=== PATIENT | female | born 1990 ===

== ENCOUNTER 2022-05-25 15:19 | Emergency (ER) | payer OTHER, SELFPAY ==
[2022-05-25 15:30] VITALS: BP 140/94; BP 141/90; PULSE 71; PULSE 73; RESP 16; TEMP 36.6; O2SAT 93; O2SAT 97; BMI 29.2
--- NOTE | 2022-05-25 17:37 | ED_ITS ---
HPI - General Adult General Chief complaint: General Medical Stated complaint: Lower leg injury Time Seen by Provider: 05/25/22 15:45 History of Present Illness HPI narrative: Patient complains of wound on left calf that has been present for over a year with some surrounding redness for over year, she thinks the redness is improving she is had no fever, no severe pain, she is a recovering addict who says she has never injected the area but has scratched it picked added She also complains she bites her fingernails and there is redness around the nail bed on multiple fingers but denies any swelling or discharge or significant pain in the fingers She also complains of a shaving scratch to her right leal area She denies fever chills dizziness weakness headache neck pain, no joint pains no joint swelling Related Data Previous Rx's Medication Instructions Recorded albuterol sulfate 90 mcg/actuation 2 puff inhalation Q4-6H PRN 05/25/22 aerosol inhaler shortness of breath or wheezing #8.5 grams cephalexin 500 mg tablet 500 mg PO QID 7 days #28 tabs 05/25/22 doxycycline hyclate 100 mg capsule 100 mg PO BID 7 days #14 caps 05/25/22 Allergies Allergy/AdvReac Type Severity Reaction Status Date / Time buprenorphine [From Suboxone] Allergy Anaphylaxis Verified 05/25/22 15:46 naloxone [From Suboxone] Allergy Anaphylaxis Verified 05/25/22 15:46 [facility] Past Medical History Source: nursing notes reviewed Social History Social History Advance Directives: No Advance Directives Information Provided: No Physical Exam ED Vital Signs: Vital Signs - 24 hr 05/25/22 15:30 Temperature 97.9 F Pulse Rate 71 Respiratory Rate 16 Blood Pressure 141/90 H Pulse Oximetry 93 Oxygen Delivery Method Room Air BMI result Body Mass Index 29.2 General appearance comfortable no distress Head is normocephalic atraumatic Neck is supple Respiratory no distress Left posterior leg exam there is a small dime-sized wound with surrounding redness and induration no fluctuance no discharge from the wound in the left calf area, there is no lymphangitis, neurovascular intact distal with normal skin color distal The right lower anterior pre tibial area has 3 cm very superficial abrasion with no surrounding erythema no bleeding no discharge, full range of motion in all joints neurovascular intact distal The bilateral hand exam there is redness around the nail beds on multiple fingers but no fluctuance no swelling no discharge, there is full range of motion in all fingers and no evidence of any tendon deficits, sensation is intact in all fingertips Course Course Course Narrative: Patient is treated for skin infection in nailbed area and wound in left calf area with Keflex and doxycycline As left calf wound has lasted over a year she is referred to wound clinic Well-appearing patient ambulating easily is discharged Discharge Plan Discharge Clinical Impression: Cellulitis, Leg wound, left Patient Disposition: Home, Self-Care Additional Instructions: We are treating the wound on her left leg and the redness in her fingertips with antibiotics Keflex and doxycycline For the wound in the back of her leg that has been there a year we recommend you follow with wound clinic The abrasion on the front of her right leg is not serious and does not need any treatment but we did do a tetanus shot today Return any time for spreading redness worse pain and swelling fever red stripe up leg any worse condition or any concerns Prescriptions: New doxycycline hyclate 100 mg capsule 100 mg PO BID 7 Days Qty: 14 0RF cephalexin 500 mg tablet 500 mg PO QID 7 Days Qty: 28 0RF albuterol sulfate 90 mcg/actuation HFA aerosol inhaler 2 puff inhalation Q4-6H PRN (Reason: shortness of breath or wheezing) Qty: 8.5 0RF
[2022-05-25 17:54] VITALS: BP 122/71; PULSE 72; RESP 18; TEMP 36.4; O2SAT 93
[2022-05-25] MEDS: Doxycycline Monohydrate 100 MG CAPSULE PO (18:04)
[2022-05-25] MEDS: cephALEXin 500 MG CAPSULE PO (18:04)
== END 2022-05-25 18:39 | disposition home or self-care (01) ==
PROVIDERS: Emergency Provider Emergency Medicine
DX: L03.012 Cellulitis of left finger (principal); L03.011 Cellulitis of right finger; L03.116 Cellulitis of left lower limb; S80.811A Abrasion, right lower leg, initial encounter; S81.802A Unspecified open wound, left lower leg, initial encounter; X58.XXXA Exposure to other specified factors, initial encounter; Y93.9 Activity, unspecified; Y92.9 Unspecified place or not applicable; Y99.9 Unspecified external cause status
CPT/HCPCS: 90471; 99283; 99284

== ENCOUNTER 2022-05-31 10:25 | Emergency (ER) | payer OTHER, SELFPAY ==
[2022-05-31 10:45] VITALS: BP 120/70; BP 141/89; PULSE 102; PULSE 94; RESP 18; O2SAT 96; O2SAT 97; BMI 29.2
[2022-05-31 11:08] VITALS: TEMP 36.9
--- NOTE | 2022-05-31 11:22 | PC.NURSE ---
pt denies contraband on her person.
--- NOTE | 2022-05-31 11:29 | ED_ITS ---
HPI - Medical Clearance General Chief complaint: Medical Clearance Stated complaint: Medical eval per EMS Time Seen by Provider: 05/31/22 10:39 Source: patient Mode of arrival: ambulatory Limitations: no limitations History of Present Illness HPI Narrative: 32-year-old female presents for medical clearance. She lives in a sober house. She last used cocaine approximately a day and half ago. She offers no acute complaints. She does have chronic cellulitic changes to her right fingers. She is currently not on antibiotics supposed to be on Keflex and doxycycline. She is having issues getting the antibiotics secondary to insurance. Patient also complains of bilateral chronic lower extremity paresthesias. This is not changed since her surgery. Patient denies any fevers, chills, cough, mucus production, chest pain, shortness of breath. There is no clear relieving or exacerbating features. She denies suicidal homicidal ideation. Patient's symptoms are mild at this time. Related Information Previous Rx's Medication Instructions Recorded albuterol sulfate 90 mcg/actuation 2 puff inhalation Q4-6H PRN 05/25/22 aerosol inhaler shortness of breath or wheezing #8.5 grams cephalexin 500 mg tablet 500 mg PO QID 7 days #28 tabs 05/25/22 doxycycline hyclate 100 mg capsule 100 mg PO BID 7 days #14 caps 05/25/22 cephalexin 500 mg capsule 500 mg PO QID 7 days #28 caps 05/31/22 doxycycline hyclate 100 mg tablet 100 mg PO BID 7 days #14 tabs 05/31/22 Allergies Allergy/AdvReac Type Severity Reaction Status Date / Time buprenorphine [From Suboxone] Allergy Anaphylaxis Verified 05/25/22 15:46 naloxone [From Suboxone] Allergy Anaphylaxis Verified 05/25/22 15:46 [facility] Social History Social History Alcohol intake: former Smoked in Last 30 Days: Yes Use of substances other than those prescribed or required for medical reasons: Yes Substance Use Type: Crack/Cocaine Substance Use Frequency Other:: 2 days ago Last Used Substance: Days (ago) Advance Directives: No Advance Directives Information Provided: Yes Patient : No Physical Exam Vital Signs: Vital Signs: Last Vital Signs Temp 98.5 F 05/31/22 11:08 Pulse 102 H 05/31/22 10:45 Resp 18 05/31/22 10:45 BP 141/89 H 05/31/22 10:45 Pulse Ox 96 05/31/22 10:45 O2 Del Method Room Air 05/31/22 10:45 BMI result Body Mass Index 29.2 GEN: Well developed, no acute distress, alert, oriented HEENT: Normocephalic, atraumatic, normal external ears, nose appears normal, no oropharyngeal edema or exudates Eyes: Normal to appearance Neck: Supple, no lymphadenopathy Respiratory: Talks in complete sentences, no respiratory distress, clear to auscultation bilaterally Cardiovascular: Regular rate and rhythm, no murmurs rubs or gallops Abdomen: Soft, nontender, nondistended, no guarding, no rebound Back: No CVA tenderness Extremities: No clubbing cyanosis or edema, right hand distal phalangial cellulitic changes. Neurologic: No focal neurologic deficits, cranial nerves 2-12 intact, strength is 5/5 bilaterally, gait normal Skin: No rash Course Course Course Narrative: 32-year-old female with no significant medical complaints at this time presents for medical clearance to return back to [facility]. Will order urine drug screen. She does have cellulitis of the right distal phalanges. Will restart patient on antibiotics and order prescription for her. Patient otherwise offers no acute psychiatric complaints. She denies suicidal homicidal ideation. She appears pose no threat to self or others. Patient has decision-making capacity would like to be discharged following completion of her workup here. Medications Administered Discontinued Medications Generic Name Dose Route Start Last Admin Trade Name Freq PRN Reason Stop Dose Admin Cephalexin HCl 500 mg 05/31/22 11:27 05/31/22 11:43 Cephalexin 500 Mg Capsule PO 05/31/22 11:28 500 mg ONCE ONE Administration Doxycycline Monohydrate 100 mg 05/31/22 11:27 05/31/22 11:43 Doxycycline Monohydrate 100 Mg Capsule PO 05/31/22 11:28 100 mg ONCE ONE Administration Medical Decision Making Medical Decision Making MDM Narrative: 32-year-old female with no significant medical complaints at this time presents for medical clearance to return back to [facility]. Will order urine drug screen. She does have cellulitis of the right distal phalanges. Will restart patient on antibiotics and order prescription for her. Patient otherwise offers no acute psychiatric complaints. She denies suicidal homicidal ideation. She appears pose no threat to self or others. Patient has decision-making capacity would like to be discharged following completio Differential Diagnosis Differential Diagnoses: The differential diagnosis associated with the presentation includes (Substance abuse, intoxication, cellulitis, chronic skin changes) Lab Data MDM Lab Attestation statement: I reviewed the patient's lab results. Labs: Lab Results 05/31/22 Range/Units 11:45 Urine Opiates Screen Not Detected (Not Detect) Urine Fentanyl Screen POSITIVE H (Not Detect) Ur Barbiturates Screen Not Detected (Not Detect) Ur Phencyclidine Scrn Not Detected (Not Detect) Ur Amphetamines Screen Not Detected (Not Detect) U Benzodiazepines Scrn Not Detected (Not Detect) Urine Cocaine Screen POSITIVE H (Not Detect) U Marijuana (THC) Screen Not Detected (Not Detect) Tests considered The following testing was considered but not selected: Laboratory analysis Prescription Management I considered prescription management with: Antibiotic Chronic Conditions Patient?s care impacted by: Other (Substance abuse) Discharge Plan Discharge Clinical Impression: Cellulitis, Substance abuse Patient Disposition: Home, Self-Care Instructions: Cellulitis (ED), Polysubstance Abuse (ED) Additional Instructions: Patient is medically cleared to return back to her living environment Prescriptions: New cephalexin 500 mg capsule 500 mg PO QID 7 Days Qty: 28 0RF doxycycline hyclate 100 mg tablet 100 mg PO BID 7 Days Qty: 14 0RF Continued cephalexin 500 mg tablet 500 mg PO QID 7 Days Qty: 28 0RF albuterol sulfate 90 mcg/actuation HFA aerosol inhaler 2 puff inhalation Q4-6H PRN (Reason: shortness of breath or wheezing) Qty: 8.5 0RF doxycycline hyclate 100 mg capsule 100 mg PO BID 7 Days Qty: 14 0RF Discontinued doxycycline hyclate 100 mg capsule 100 mg PO BID 7 Days Qty: 14 0RF cephalexin 500 mg tablet 500 mg PO QID 7 Days Qty: 28 0RF albuterol sulfate 90 mcg/actuation HFA aerosol inhaler 2 puff inhalation Q4-6H PRN (Reason: shortness of breath or wheezing) Qty: 8.5 0RF Referrals: Physician,None [Primary Care Provider] -
[2022-05-31] MEDS: cephALEXin 500 MG CAPSULE PO (11:43)
[2022-05-31] MEDS: Doxycycline Monohydrate 100 MG CAPSULE PO (11:43)
[2022-05-31 12:02] LABS: Amphetamine Screen Urine Not Detected (Not Detect); Barbiturates, Urine Not Detected (Not Detect); Benzodiazepines Screen Urine Not Detected (Not Detect); Cannabinoid Screen Urine Not Detected (Not Detect); Cocaine Screen Urine POSITIVE (Not Detect); Fentanyl, urine POSITIVE (Not Detect); Opiate Screen Urine Not Detected (Not Detect); Phencyclidine Screen Urine Not Detected (Not Detect)
--- NOTE | 2022-05-31 12:27 | PC.NURSE ---
call placed to [facility] to determine if pt can d/c back to their facility - awaiting responce.
--- NOTE | 2022-05-31 12:44 | PC.NURSE ---
[facility] refused to accpt pt back d/t +fentanyl. reported pt would have to go to detox first. informed pt of this. she reports she needs to smoke a cigarette . offered her to stay to be placed to detox by [facility] staff. she refused at thsi time. list of detoxes given to pt. she d/c to front of hospital to smoke .
== END 2022-05-31 12:46 | disposition home or self-care (01) ==
PROVIDERS: Emergency Provider Emergency Medicine
DX: L03.011 Cellulitis of right finger (principal); F14.10 Cocaine abuse, uncomplicated; Z79.899 Other long term (current) drug therapy
CPT/HCPCS: 80307; 99284

== ENCOUNTER 2022-07-27 14:09 | Emergency (ER) | payer OTHER, SELFPAY ==
[2022-07-27 14:23] VITALS: BP 133/83; BP 140/90; PULSE 104; PULSE 92; RESP 18; O2SAT 96; BMI 29.0
[2022-07-27 14:28] VITALS: BP 133/83; PULSE 104; RESP 18; O2SAT 98
--- NOTE | 2022-07-27 14:35 | PC.NURSE ---
Alert and oriented. States picked a scab on her left leg and blood started spurting: everywhere. Stated she thinks she lost a good amount of blood. Pressure dressing applied by emt`s. Dry and intact at this time. States pain is 6/10 in left leg at scab site. With patient permission personal belongings searched. Patient drowsy, nodding off, and emotional. Sates she just had lower back surgery and has a psuedo anurysm in her left arm.
--- NOTE | 2022-07-27 14:45 | ED_ITS ---
HPI - General Adult General Chief complaint: Wound/Laceration Stated complaint: LLE LAC,CONTROLLED W/DIRECT PRESSURE Time Seen by Provider: 07/27/22 14:18 Source: patient and EMS Mode of arrival: EMS Limitations: no limitations History of Present Illness HPI narrative: Patient is a 32-year female with history of cellulitis presenting with bleeding from left lower leg after picking a scab prior to arrival. Patient states she was unable to control the bleeding on her own so she called 911 and EMS applied a dressing. She denies any leg pain, numbness or tingling. Denies any other complaints. Denies any recent fevers or chills. Denies any chest pain or shortness of breath. complaint: left lower leg bleeding Onset (ago): minute(s) Location: lower extremity Radiation: non-radiation Associated symptoms: denies other symptoms Treatments prior to arrival: other (dressing) Related Data Previous Rx's Medication Instructions Recorded albuterol sulfate 90 mcg/actuation 2 puff inhalation Q4-6H PRN 05/25/22 aerosol inhaler shortness of breath or wheezing #8.5 grams cephalexin 500 mg tablet 500 mg PO QID 7 days #28 tabs 05/25/22 doxycycline hyclate 100 mg capsule 100 mg PO BID 7 days #14 caps 05/25/22 cephalexin 500 mg capsule 500 mg PO QID 7 days #28 caps 05/31/22 doxycycline hyclate 100 mg tablet 100 mg PO BID 7 days #14 tabs 05/31/22 cephalexin 500 mg capsule 500 mg PO QID #28 caps 07/27/22 doxycycline hyclate 100 mg capsule 100 mg PO BID #14 caps 07/27/22 Allergies Allergy/AdvReac Type Severity Reaction Status Date / Time buprenorphine [From Suboxone] Allergy Anaphylaxis Verified 05/25/22 15:46 naloxone [From Suboxone] Allergy Anaphylaxis Verified 05/25/22 15:46 Review of Systems Review of Systems: As per HPI. Yes all other systems are reviewed and are negative Constitutional: Constitutional: Reports as per HPI [facility] Social History Social History Alcohol intake: former Smoked in Last 30 Days: Yes Substance Use Type: Crack/Cocaine and Heroin Substance Use Frequency: Chronic Longstanding Last Used Substance: Hours (ago) Any prior treatment program specific to substance use: Yes Advance Directives: No Physical Exam ED Vital Signs: Vital Signs - 24 hr 07/27/22 14:23 07/27/22 14:28 Pulse Rate 104 H 104 H Respiratory Rate 18 18 Blood Pressure 133/83 133/83 Pulse Oximetry 96 98 Oxygen Delivery Method Room Air Room Air BMI result Body Mass Index 29.0 Vital signs have been reviewed and appear to be correct. Blood pressure normal. Heart rate slightly elevated. Respiratory rate normal. Temperature normal. Oxygen saturation normal. Const General: cooperative and no acute distress Orientation/consciousness: oriented to person, oriented to place, oriented to time and patient oriented x3 Limitations: no limitations HENMT Head: Yes normocephalic and Yes atraumatic Ears: external ears normal General nose exam: Normal external nose present Face and sinus: Yes face symmetric Mouth: oropharynx normal and moist mucous membranes Throat: Yes uvula midline Eyes Pupils: Equal, round and reactive pupils present Neck Neck: Yes normal visual inspection and Yes supple Resp Effort & Inspection: normal respiratory effort and able to speak in complete sentences Auscultation: clear to auscultation bilaterally Cardio Rate: regular rate Rhythm: regular rhythm Heart sounds: S1 normal heart sound present and S2 normal heart sound present GI Palpation (GI): Soft to palpation and nontender Auscultation: normoactive bowel sounds General: Yes no CVA tenderness Back/Spine/Pelvis Back: no CVA tenderness Skin General skin exam: elasticity normal and turgor normal Neuro General: oriented to person, oriented to place, oriented to time, patient oriented x3, moves all extremities, no focal motor deficits and CN's II-XI intact bilaterally Cranial nerves: Yes Equal, round and reactive pupils present Cognition (Neuro): normal cognition Extrem General: Yes full ROM, Yes no pedal edema and Yes no calf tenderness Right lower extremity: lower leg Details: erythema Location: of the proximal lower leg Location: medially, warmth Location: of the proximal lower leg and other (2mm wound to medial aspect of proximal L lower leg, no active bleeding); no tenderness and foot Details: normal capillary refill and vascular exam Details: dorsalis pedis pulse present and posterior tibial pulse present Psych Mental Status: mental status grossly normal Affect: normal affect Thought process: Normal thought process present Medical Decision Making Medical Decision Making MDM Narrative: Patient is a 32-year female with history of cellulitis presenting with bleeding from left lower leg after picking a scab prior to arrival. On exam, patient is awake, A+Ox3, mildly tachycardic, VS otherwise WNL, ~2mm wound to medial aspect of proximal left lower leg with no active bleeding. Erythema and calor to medial aspect of left lower leg consistent with cellulitis. Dressing applied to wound, wrapped with kerlix and Kris bandage. No lymphangitis spread, no fluid pockets or fluctuance. Low concern for osteomyelitis or DVT (low risk [place]). No immune compromise, bullae, pain out of proportion or rapid progression concerning for necrotizing fasciitis. Instructed patient to keep leg elevated as frequently as possible, ensure Kris wrap is not applied too tightly, to re- wrap if any decreased sensation distal or change in color of leg. Will prescribe doxycycline and keflex as patient has history of chronic cellulitis. Patient to follow up with PCP. Return precautions discussed at bedside. Differential Diagnosis Differential Diagnoses: The differential diagnosis associated with the presentation includes As above. External Record Review External record reviewed: Inpatient record, Office record and Outpatient record Prescription Management I considered prescription management with: Antibiotic Social Determinants Patient?s care significantly limited by Social Determinants of Health including: Inadequate housing Discharge Plan Discharge Clinical Impression: Leg wound, left, Cellulitis of left lower leg Patient Disposition: Home, Self-Care Instructions: Cellulitis (DC), Acute Wounds (DC) Additional Instructions: You were evaluated in the emergency department for bleeding from a wound to your left lower leg. Bleeding controlled in the ED and new dressing applied. Use caution when applying Kris wrap to avoid wrapping too tightly. Remove Kris wrap if you develop increased pain, change in color of your foot, numbness or tingling to your foot or toes. Change dressing daily and assess wound for any new or worsening redness, warmth, or thick yellow drainage. You are being prescribed two antibiotics to treat a skin infection on your leg. Please take all of the antibiotics as prescribed. Return to the emergency department if you develop increased pain, uncontrolled bleeding, fever 100.4F or greater, new numbness or tingling to your leg or foot, or any other concerning symptoms. Prescriptions: New cephalexin 500 mg capsule 500 mg PO QID Qty: 28 0RF doxycycline hyclate 100 mg capsule 100 mg PO BID Qty: 14 0RF No Action cephalexin 500 mg capsule 500 mg PO QID 7 Days Qty: 28 0RF doxycycline hyclate 100 mg tablet 100 mg PO BID 7 Days Qty: 14 0RF cephalexin 500 mg tablet 500 mg PO QID 7 Days Qty: 28 0RF albuterol sulfate 90 mcg/actuation HFA aerosol inhaler 2 puff inhalation Q4-6H PRN (Reason: shortness of breath or wheezing) Qty: 8.5 0RF doxycycline hyclate 100 mg capsule 100 mg PO BID 7 Days Qty: 14 0RF
[2022-07-27 15:09] VITALS: TEMP 36.6
== END 2022-07-27 15:28 | disposition home or self-care (01) ==
PROVIDERS: Emergency Provider Emergency Medicine
DX: L03.116 Cellulitis of left lower limb (principal); Z79.899 Other long term (current) drug therapy
CPT/HCPCS: 99283; 99284

== ENCOUNTER 2022-08-23 11:58 | Emergency (ER) | payer OTHER, SELFPAY ==
[2022-08-23 12:03] VITALS: BP 143/97; BP 160/96; PULSE 100; PULSE 89; RESP 16; TEMP 36.7; O2SAT 95; BMI 27.3
--- NOTE | 2022-08-23 12:17 | ED.GENADULT ---
HPI - General Adult General Chief complaint: General Medical Stated complaint: Leceration Time Seen by Provider: 08/23/22 12:17 Source: patient Mode of arrival: EMS Limitations: no limitations History of Present Illness HPI narrative: 32-year-old female who presents emergency department for evaluation of left leg varicose vein bleeding. Patient states that she was putting lotion on her legs and she accidentally scratched a varicose vein which then began bleeding profusely. The patient states that she wrapped her leg with a tourniquet and stop the bleeding. She was concerned about the amount of blood so she called an ambulance was brought to emergency department. Patient has been seen in the past for similar bleeding. She has also been seen in the emergency department for cellulitis of her extremities. The patient was living in a sober house but she states the last 2 months she has been homeless and has been living on the streets. Related Data Previous Rx's Medication Instructions Recorded albuterol sulfate 90 mcg/actuation 2 puff inhalation Q4-6H PRN 05/25/22 aerosol inhaler shortness of breath or wheezing #8.5 grams cephalexin 500 mg tablet 500 mg PO QID 7 days #28 tabs 05/25/22 doxycycline hyclate 100 mg capsule 100 mg PO BID 7 days #14 caps 05/25/22 cephalexin 500 mg capsule 500 mg PO QID 7 days #28 caps 05/31/22 doxycycline hyclate 100 mg tablet 100 mg PO BID 7 days #14 tabs 05/31/22 cephalexin 500 mg capsule 500 mg PO QID #28 caps 07/27/22 doxycycline hyclate 100 mg capsule 100 mg PO BID #14 caps 07/27/22 Allergies Allergy/AdvReac Type Severity Reaction Status Date / Time buprenorphine [From Suboxone] Allergy Anaphylaxis Verified 08/23/22 12:08 naloxone [From Suboxone] Allergy Anaphylaxis Verified 08/23/22 12:08 Review of Systems Review of Systems: Yes all other systems are reviewed and are negative PMFSH Past Medical History [facility] Narrative: Past medical history: Cellulitis Social History Social History Alcohol intake: former Substance Use Type: Crack/Cocaine and Heroin Advance Directives: Yes Advance Directives Information Provided: Yes Advance Directives on File: No Physical Exam ED Vital Signs: Vital Signs - 24 hr 08/23/22 12:03 Temperature 98.1 F Pulse Rate 89 Respiratory Rate 16 Blood Pressure 143/97 H Pulse Oximetry 95 Oxygen Delivery Method Room Air BMI result Body Mass Index 27.3 General: Awake, alert, female patient, she is unkempt and disheveled secondary to living on the streets. Extremities: The patient's left lower extremity have multiple abrasions on them with no evidence for cellulitis. She does have a small wound to her left lateral calf which is not actively bleeding, this is over a varicose vein. Medical Decision Making Medical Decision Making [facility] Narrative: 32-year-old female homeless who presents emergency department for evaluation of left lower extremity bleed secondary to actually scratching varicose vein. Patient was able to stop the bleeding prior to coming to the emergency department. There is a small wound over a varicose vein which I covered with a 4 x 4 gauze dressing folded 2 times and held in place using Coban. Patient was advised to keep the dressing on for 24 hours and was discharged home. Differential Diagnosis Differential Diagnoses: The differential diagnosis associated with the presentation includes Differential diagnosis includes was not limited to bleeding varicose vein, arterial bleed, cellulitis Social Determinants Patient?s care significantly limited by Social Determinants of Health including: Inadequate housing Discharge Plan Discharge Clinical Impression: Bleeding from varicose vein Patient Disposition: Home, Self-Care Additional Instructions: Keep the pressure dressing on for 24 hours. If you bleed through the pressure dressing then you can re-dress it with the gauze and Coban. Watch for signs of infection which include redness, swelling, drainage of pus, red streaks going away from the wound. Follow-up with your doctor in 2 days. Please return to the emergency department if your symptoms get worse or if you develop any symptoms that are concerning to you. Prescriptions: No Action cephalexin 500 mg capsule 500 mg PO QID 7 Days Qty: 28 0RF doxycycline hyclate 100 mg tablet 100 mg PO BID 7 Days Qty: 14 0RF cephalexin 500 mg capsule 500 mg PO QID Qty: 28 0RF doxycycline hyclate 100 mg capsule 100 mg PO BID Qty: 14 0RF cephalexin 500 mg tablet 500 mg PO QID 7 Days Qty: 28 0RF albuterol sulfate 90 mcg/actuation HFA aerosol inhaler 2 puff inhalation Q4-6H PRN (Reason: shortness of breath or wheezing) Qty: 8.5 0RF doxycycline hyclate 100 mg capsule 100 mg PO BID 7 Days Qty: 14 0RF
--- NOTE | 2022-08-23 12:59 | PC.NURSE ---
pt resting in bed, eating a sandwich. asking to be discharged
[2022-08-23 13:00] VITALS: BP 137/92; PULSE 68; RESP 14; O2SAT 98
--- NOTE | 2022-08-23 13:27 | PC.NURSE ---
medical intern spoke with patient she is declining assistance at this time, pt remains sleepy but arousable
== END 2022-08-23 13:38 | disposition home or self-care (01) ==
PROVIDERS: Emergency Provider Emergency Medicine Emergency Medical Services
DX: I83.892 Varicose veins of left lower extremity with other complications (principal)
CPT/HCPCS: 99282

== ENCOUNTER 2022-09-16 13:21 | Emergency (ER) | payer OTHER, SELFPAY ==
[2022-09-16 14:01] VITALS: BP 147/102; PULSE 83; RESP 18; TEMP 36.1; O2SAT 98; BMI 27.5
[2022-09-16 14:08] VITALS: BP 148/100; PULSE 96; O2SAT 98
--- NOTE | 2022-09-16 15:24 | PC.NURSE ---
pt rouses with verbal stimuli, observed rise and fall of chest as pt slept, resps even, unlabored, and symmetrical. since arrival pt has eaten, calm and cooperative at this time
--- NOTE | 2022-09-16 15:47 | ED.GENADULT ---
HPI - General Adult General Chief complaint: General Medical Stated complaint: BURST VARICOSE VEIN PER EMS Time Seen by Provider: 09/16/22 13:43 Source: patient and RN notes reviewed Mode of arrival: EMS Limitations: no limitations History of Present Illness HPI narrative: This is a 32-year-old female, with a past medical history of IVDA, presenting to the emergency department via EMS for evaluation of wound to left lower leg. Patient states that she accidentally kicked her left leg with her right leg and noticed that one of her veins burst and she could not stop the bleeding while she was in [facility] today. Patient admits to using IV drugs however reports that she does not use in her left lower leg, she admits to using in her left upper thigh. Denies fevers, chills, nausea, vomiting, or diarrhea. Denies any other complaints or concerns at this time. MD complaint: Left leg wound Onset (ago): hour(s) Location: lower extremity Relieving factors: none Exacerbating factors: none Associated symptoms: denies other symptoms Treatments prior to arrival: none Related Data Previous Rx's Medication Instructions Recorded albuterol sulfate 90 mcg/actuation 2 puff inhalation Q4-6H PRN 05/25/22 aerosol inhaler shortness of breath or wheezing #8.5 grams cephalexin 500 mg tablet 500 mg PO QID 7 days #28 tabs 05/25/22 doxycycline hyclate 100 mg capsule 100 mg PO BID 7 days #14 caps 05/25/22 cephalexin 500 mg capsule 500 mg PO QID 7 days #28 caps 05/31/22 doxycycline hyclate 100 mg tablet 100 mg PO BID 7 days #14 tabs 05/31/22 cephalexin 500 mg capsule 500 mg PO QID #28 caps 07/27/22 doxycycline hyclate 100 mg capsule 100 mg PO BID #14 caps 07/27/22 Allergies Allergy/AdvReac Type Severity Reaction Status Date / Time buprenorphine [From Suboxone] Allergy Anaphylaxis Verified 08/23/22 12:08 naloxone [From Suboxone] Allergy Anaphylaxis Verified 08/23/22 12:08 Review of Systems Review of Systems: Yes all other systems are reviewed and are negative Constitutional: Constitutional: Reports as per HPI [facility] Past Medical History Attestation statement: The following information was validated with the patient. Social History Social History (Reviewed 09/23/22 @ 13:27 by GREGORY Kennedy Alcohol intake: former Substance Use Type: Crack/Cocaine and Heroin Advance Directives: No Advance Directives Information Provided: No Physical Exam ED Vital Signs: Vital Signs - 24 hr 09/16/22 14:01 Temperature 97 F Pulse Rate 83 Respiratory Rate 18 Blood Pressure 147/102 H Pulse Oximetry 98 Oxygen Delivery Method Room Air BMI result Body Mass Index 27.5 Const Other: Appears to be under the influence, occasionally nodding off however easily arousable. General: cooperative, comfortable, poor hygiene and tired appearing Orientation/consciousness: patient oriented x3 Limitations: no limitations HENMT Head: Yes normal to inspection, Yes normocephalic and Yes atraumatic Ears: hearing grossly normal bilaterally General nose exam: Normal external nose present Face and sinus: Yes normal facial exam Mouth: Normal oral and palatal mucosa present, oropharynx normal and moist mucous membranes Throat: Yes posterior oropharynx normal Eyes Other: Pinpoint pupils General: appearance normal, both eyes and all related structures Eyelids: Yes eyelids normal Conjunctivae: conjunctivae normal Sclerae: sclerae normal Pupils: Equal, round and reactive pupils present EOM: EOMs intact bilaterally Neck Neck: Yes normal visual inspection, Yes full ROM and Yes no lymphadenopathy Lymphatic: no lymphadenopathy noted Chest Chest palpation & inspection: normal inspection of the chest Resp Effort & Inspection: normal respiratory effort and able to speak in complete sentences Auscultation: clear to auscultation bilaterally, no crackles, no rales, no rhonchi and no wheezes Cardio Rate: regular rate Rhythm: regular rhythm Heart sounds: S1 normal heart sound present and S2 normal heart sound present GI Inspection: Yes normal to inspection Palpation (GI): Soft to palpation, nontender and no guarding Skin Other: 2mm wound to medial aspect of proximal left lower leg with no active bleeding. No erythema or surrounding warmth. No lymphangitic spread. Neuro General: patient oriented x3 and moves all extremities Cranial nerves: Yes Equal, round and reactive pupils present Extrem General: Yes normal to inspection Right upper extremity: normal to inspection Left upper extremity: normal to inspection Right lower extremity: normal to inspection Left lower extremity: normal to inspection Course Reevaluation(s) Reevaluation #1: Patient is still knodding off, even while trying to cleanse wound with Betadine, saline. Will continue to monitor. Time: 18:27 Reevaluation #2: Patient still arousable, vital signs stable, still knodding off, will continue to monitor. Given sign out to Krzysztof Christiansen PA-C Time: 19:59 Medications Administered Discontinued Medications Generic Name Dose Route Start Last Admin Trade Name Davey PRN Reason Stop Dose Admin Diphtheria/Tetanus/Acell Pertussis 0.5 ml 09/16/22 16:00 09/16/22 16:06 Diphth,Pertus(Acell),Tet Adult 0.5 Ml Syringe IM 09/16/22 16:01 0.5 ml .ONCE ONE Administration Medical Decision Making Medical Decision Making MDM Narrative: 32-year-old female presenting to the emergency department with left leg wound. 2 mm superficial wound noted to medial calf with varicose vein surrounding wound. No active bleeding or drainage. Patient used 1 bag of IV heroin prior to arrival today and is nodding off. She is easily arousable. Respirations 18 per minute, all other vital signs within normal limits. Wound does not appear to be infected and is not actively draining. Will update tetanus and department today. Will wait until patient is clinically sober for discharge for safety precautions. Patient declines wanting recovery services at this time. Patient has been seen here in the past for similar symptoms. Differential Diagnosis Differential Diagnoses: The differential diagnosis associated with the presentation includes Cellulitis, varicose vein, lymphangitis, contact dermatitis, laceration, abrasion Discharge Plan Discharge Clinical Impression: Leg wound, left, Opiate addiction Patient Disposition: Still a Patient Instructions: Acute Wounds (ED) Additional Instructions: Stop using drugs. You declined recovery services today. Do not pick at wound, keep area clean and dry. Watch for any signs of infection including but not limited to fevers, chills, increased redness or swelling. If any new or worsening symptoms occur please return for re-evaluation. We updated your tetanus shot in the department today. Prescriptions: No Action cephalexin 500 mg capsule 500 mg PO QID 7 Days Qty: 28 0RF doxycycline hyclate 100 mg tablet 100 mg PO BID 7 Days Qty: 14 0RF cephalexin 500 mg capsule 500 mg PO QID Qty: 28 0RF doxycycline hyclate 100 mg capsule 100 mg PO BID Qty: 14 0RF cephalexin 500 mg tablet 500 mg PO QID 7 Days Qty: 28 0RF albuterol sulfate 90 mcg/actuation HFA aerosol inhaler 2 puff inhalation Q4-6H PRN (Reason: shortness of breath or wheezing) Qty: 8.5 0RF doxycycline hyclate 100 mg capsule 100 mg PO BID 7 Days Qty: 14 0RF Discharge Date/Time: 09/16/22 20:30
[2022-09-16] MEDS: Diphth,Pertus(ACell),Tet Adult 0.5 ML SYRINGE IM (16:06)
[2022-09-16 20:00] VITALS: BP 144/96; PULSE 74; RESP 16; TEMP 36.6; O2SAT 100
== END 2022-09-16 20:30 | disposition still patient (30) ==
PROVIDERS: Emergency Provider Emergency Medicine
DX: S80.922A Unspecified superficial injury of left lower leg, initial encounter (principal); W51.XXXA Accidental striking against or bumped into by another person, initial encounter; F11.10 Opioid abuse, uncomplicated; Y93.9 Activity, unspecified; Y92.9 Unspecified place or not applicable; Y99.9 Unspecified external cause status
CPT/HCPCS: 90471; 90715; 99283; 99284

== ENCOUNTER 2022-11-03 23:07 | Inpatient (IN) | payer OTHER, SELFPAY ==
--- NOTE | ~2022-11-03 | CT_ITS ---
EXAMINATION: CT ABDOMEN WITH CONTRAST CLINICAL INFORMATION: COMPARISON: Abdominal ultrasound from earlier today TECHNIQUE: Contiguous axial thin section helical images of the abdomen were performed following the administration of oral contrast and 85 mL of Omnipaque 350 intravenous contrast. The data set was reformatted in the coronal and sagittal planes and reviewed on an independent workstation. This CT examination was performed using dose optimization techniques as appropriate, variously including the following: *Automated exposure control *Adjustment of mA and/or kV according to patient size (this includes techniques or standardized protocols for targeted exams where dose is matched to indication/reason for exam; i.e. extremities or head) *Use of iterative reconstruction technique DLP: 285 mGy-cm FINDINGS: LUNG BASES: Atelectasis at the left lung base. LIVER, GALLBLADDER, AND BILIARY TREE: There is heterogeneous enhancement of the liver with low-attenuation areas, greatest in the inferior segment of the right lobe of liver. Largest area measures 4 cm. Discrete lesion is not appreciated. The liver is slightly enlarged, right lobe measuring 19 cm in length. There is trace ascites adjacent to the liver. The gallbladder appears intact. There is no biliary duct dilatation. PANCREAS: Normal SPLEEN: Slightly enlarged spleen measuring 13.6 cm in length. The spleen also demonstrates heterogeneous enhancement with low-attenuation ill-defined areas, greatest inferiorly there is all amount of ascites adjacent to the knee. ADRENAL GLANDS AND KIDNEYS: Normal BOWEL LOOPS: Diverticulosis of the colon. Visualized small and large bowel is otherwise normal. The visualized appendix is normal. There is question increased low-attenuation soft tissue in the presacral space. This is seen on most inferior images LYMPH NODES: There are numerous retroperitoneal lymph nodes. Largest lymph nodes are upper normal in size. Largest aortocaval lymph node measuring 1 cm in short axis axial 3 and right external iliac lymph node axial image 53 series 3. VASCULAR: The IVC is enlarged. The hepatic veins appear prominent. Some of heterogeneous enhancement pattern in the liver may be related to right heart compromise. BONES: 1 cm anterior subluxation of L5 with respect to S1. There is posterior fusion hardware and reticular screws from L4 to S1. Fusion across the bilateral sacroiliac joints. There is lucency adjacent to bilateral L4 and sacroiliac joint screws questionable for loosening. There is disc prosthesis and anterior screw at L5. There are soft tissue changes over the right buttock posterior to the right sacroiliac joint with abnormal air in the soft tissues, small subcutaneous high attenuation collection in density questionable for surgical packing material. This is the most inferior images only. CT/CT abdomen w IV con IMPRESSION: Heterogeneous enhancement of the liver and spleen particularly the posterior segment of the right lobe of the liver and the inferior spleen. Discrete lesion not appreciated. Trace ascites around the liver and spleen. Upper normal-size retroperitoneal lymph nodes. Question right heart compromise. Some of the liver changes may be vascular. Follow-up liver MRI recommended. Upper normal-size retroperitoneal lymph nodes. Diverticulosis. Extensive postsurgical changes to the lower spine and sacrum. 1 cm anterior subluxation L5 with respect. Lucency adjacent to the bilateral L4 and S1 screws questionable for loosening. Question soft tissue collection over the right buttock posterior to the right sacroiliac joint. There is also question of abnormal soft tissue anterior to the sacrum on the most inferior images. Pelvic CT should be considered. Findings will be communicated by the [facility] work flow paper plate machine tender. Fleischner guidelines were followed.
--- NOTE | ~2022-11-03 | US_ITS ---
EXAMINATION: US ABDOMEN LIMITED CLINICAL INFORMATION: Transaminitis. COMPARISON: None available. TECHNIQUE: Real-time imaging of the right upper quadrant abdominal viscera. FINDINGS: PANCREAS: Tail obscured. LIVER: The liver contour is normal. The liver parenchyma appears heterogeneous particularly along the inferior right lobe with scattered areas of increased echogenicity possibly representing discrete lesions with the largest measuring 1.6 x 1.0 x 0.9 cm. There is no intrahepatic biliary duct dilatation seen. GALLBLADDER: Surgically absent. COMMON BILE DUCT: Normal in caliber measuring 0.3 cm in diameter. RIGHT KIDNEY: No hydronephrosis. No renal calculi or focal parenchymal lesions. The kidney measures 12.6 cm in maximum dimension. FREE FLUID: Trace ascites. Incidental note is made of an anterior subserosal fibroid measuring 3.8 x 3.5 x 4.4 cm. US/US abdomen limited IMPRESSION: Heterogeneous parenchymal appearance of the inferior right lobe with scattered areas of increased echogenicity possibly representing discrete lesions. The largest echogenic focus measures 1.6 x 1.0 x 0.9 cm. Further characterization with MRI abdomen is recommended. Anterior subserosal fibroid 2. 3.5 x 4.4 cm.
--- NOTE | ~2022-11-03 | XR_ITS ---
EXAMINATION: XR CHEST CLINICAL INFORMATION: Chest pain. COMPARISON: None available. TECHNIQUE: Frontal view of the chest was obtained. FINDINGS: The cardiomediastinal silhouette is normal. There is no focal lung consolidation or pleural effusion. The bony structures are unremarkable. A tubular structure seen within the right neck. A small radiopaque structure is also seen with the left neck. The soft tissues are otherwise unremarkable. XR/XR chest 1V IMPRESSION: No active cardiopulmonary disease.
--- NOTE | ~2022-11-03 | MR_ITS ---
EXAMINATION: MR LUMBAR SPINE WITHOUT AND WITH CONTRAST CLINICAL INFORMATION: Question L5-S1 abscess, sacroiliac infection COMPARISON: CT pelvis on 11/06/2022. TECHNIQUE: MRI of the lumbar spine was obtained using routine sequences with and without contrast. Intravenous contrast: Gadavist 7.5 mL FINDINGS: There is a partially imaged ill-defined multiseptated/multiloculated T2 hypointense mass like lesion anterior to the L5-S1 disc space centered in the left presacral tissues (series 5, image 37 of 40), measuring approximately 3.4 x 2.5 cm. Patchy inflammatory changes are seen surrounding this lesion. Within the right gluteal soft tissues, there is also 6.1 x 2.0 cm masslike lesion with peripheral enhancement which extends subdermal tissue with associated thickening of and enhancement of the skin. Patchy T2 hyperintensity is seen surrounding this collection and extending to asymmetrically involve the right gluteus da muscle with mild thickening. Sequelae of anterior spinal fusion at L5-S1 with interbody spacer and posterior spinal fusion spanning L4 through the bilateral sacroiliac joints with associated susceptibility artifact slightly limiting evaluation. Grade 1-2 anterolisthesis at L5-S1. The remaining vertebral body heights and disc spaces are preserved. The visualized spinal cord is normal in caliber. No abnormal cord signal. No intramedullary enhancement. The conus medullaris terminates at T12. No intrathecal fluid collection. T11-12: No significant spinal canal or neural foraminal narrowing. T12-L1: No significant spinal canal or neural foraminal narrowing. L1-2: No significant spinal canal or neural foraminal narrowing. L2-3: No significant spinal canal or neural foraminal narrowing. L3-4: No significant spinal canal or neural foraminal narrowing. L4-5: The spinal canal is patent. Mild to moderate left and mild right neural foraminal narrowing. L5-S1: The spinal canal is patent. Severe bilateral neural foraminal narrowing. MR/MR lumbar spine wo/w con IMPRESSION: Partially imaged ill-defined multiseptated/multiloculated masslike lesion anterior to the L5-S1 disc space, centered in the left presacral tissues with surrounding patchy inflammatory changes could represent phlegmon/abscess however peritoneal adnexal lesion cannot be definitively excluded. Additional right gluteal soft tissues masslike lesion with peripheral enhancement extending to the subdermal tissues likely representing a collection of fluid and packing material however superimposed infectious process cannot be excluded. T2 hyperintensity involving the right gluteus da is likely reactive myositis. Sequelae of L5-S1 anterior spinal fusion and posterior spinal fusion spanning L4 through the bilateral sacroiliac joints.
--- NOTE | ~2022-11-03 | US_ITS ---
EXAMINATION: US PELVIS CLINICAL INFORMATION: Question left adnexal lesion COMPARISON: Previous CT of the pelvis from earlier the same day TECHNIQUE: Ultrasound of the pelvis is performed using both transabdominal and transvaginal transducers along with Doppler. Transvaginal imaging is performed due to inadequate visualization transabdominally. FINDINGS: The uterus is anteverted and retroflexed and measures 8 x 3 x 3.8 cm. There is question of a 3 cm left upper uterine body or fundal fibroid. Endometrial thickness is normal measuring 6 mm. The ovaries are not seen. There is a small amount of fluid in the pelvis. US/US pelvic and transvaginal IMPRESSION: Limited exam. Ovaries not seen. Small amount of fluid in the pelvis.
--- NOTE | ~2022-11-03 | CT_ITS ---
EXAMINATION: CT PELVIS WITH CONTRAST CLINICAL INFORMATION: Abnormal soft tissue anterior to the sacrum COMPARISON: Previous CT of the abdomen from yesterday TECHNIQUE: Helical scanning was performed with submillimeter collimation through the pelvis with the use of oral contrast and during bolus intravenous injection of 85 mL of Omnipaque 350 intravenous contrast. Sagittal and coronal multiplanar 2-D reconstructions were obtained. This CT examination was performed using dose optimization techniques as appropriate, variously including the following: *Automated exposure control *Adjustment of mA and/or kV according to patient size (this includes techniques or standardized protocols for targeted exams where dose is matched to indication/reason for exam; i.e. extremities or head) *Use of iterative reconstruction technique DLP: 244 mGy-cm FINDINGS: There is a small amount of ascites in the pelvis. There is diverticulosis. Visualized bowel is otherwise unremarkable. The uterus is normal. There are prominent left ovarian vessels and reflux questionable for pelvic congestion. There is abnormal low-attenuation soft tissue seen in the pelvis anterior to the sacrum and slightly to the left of midline. This area measures 2.5 x 4.3 cm axial image 25 series 2. On sagittal and coronal reconstructed images this is anterior to the L5-S1 level and slightly to the left of midline for example sagittal reconstructed image 79. There are postsurgical changes with anterior fusion hardware at L5-S1 and disc cage. Differential would include infection/abscess related to the adjacent bone, and left adnexal or peritoneal mass. There are prominent retroperitoneal lymph nodes in the lower abdomen and pelvis and bilateral inguinal regions. There is skin thickening, increased fluid and soft tissue and high attenuation material over the right buttock overlying the posterior right sacroiliac joint. Extends to the previous maximum S muscle and may extend to the posterior right sacroiliac joint which appears asymmetrically widened compared to the left. Appearance is concerning for an abscess. There are postsurgical changes to the lower lumbar sacral spine with posterior fusion hardware and transpedicular screws from L4 to S1. There is fusion of both sacroiliac joints. There is lucency adjacent to both screws across the sacroiliac joints questionable for loosening. There is also question of a lucency and loosening of the bilateral L4 transpedicular screws. There is anterior fusion and disc cage at L5-S1. There is 1 cm anterior subluxation of L5 with respect to S1. CT/CT pelvis w IV con IMPRESSION: 2.5 x 4.3 cm low-attenuation soft tissue anterior to the L5-S1 disc space and slightly to the left of midline. Differential would include infection/abscess related to the bone and peritoneal or adnexal lesion. Abnormal fluid, soft tissue, small amount of air and high attenuation material in the right buttock extending to the right gluteus da muscle and probably extending to the right posterior sacroiliac joint. The right sacroiliac joint appears widened compared to the left side. Appearance is worrisome for infection as well. Diverticulosis of the colon. Small amount of ascites. Diffuse retroperitoneal and bilateral inguinal lymphadenopathy. Extensive postsurgical changes to the lower lumbar sacral spine.
[2022-11-03 23:14] VITALS: BP 142/83; PULSE 110; O2SAT 98
[2022-11-03 23:21] VITALS: BP 142/97; PULSE 111; RESP 16; TEMP 38.8; O2SAT 97
[2022-11-03 23:35] VITALS: BMI 23.3
[2022-11-04] VITALS (9 sets, daily range): BP systolic 98–132; BP diastolic 56–91; PULSE 77–119; RESP 14–36; TEMP 36.1–37.8; O2SAT 93–97; BMI 25.3
[2022-11-04 00:12] LABS: MANUAL DIFF FLAG NO
[2022-11-04 00:14] LABS: Basophils Percent Auto 0.5 % (0-2); Eosinophils Percent Auto 0.3 % (0-4); Hematocrit 37.1 % (37.0-47.0); Hemoglobin 12.4 g/dl (12.0-16.0); Imm Gran Abs Auto 0.04 X10*3/uL (0.00-0.03); Imm Gran Pct Auto 0.5 % (0.0-0.4); Lymphocytes Absolute Auto 1.1 X10*3/uL (1.2-4.9); Lymphocytes Percent Auto 14.7 % (20-40); Mean Corpuscular HGB Conc 33.4 g/dl (31.0-35.0); Mean Corpuscular Hemoglobin 26.5 pg (27.0-33.0); Mean Corpuscular Volume 79.3 fL (80.0-98.0); Mean Platelet Volume 9.5 fL (9.4-12.3); Monocytes Absolute Auto 0.7 X10*3/uL (0.1-1.2); Monocytes Percent Auto 9.5 % (2-11); Neutrophils Absolute Auto 5.8 x10*3/uL (2.0-8.3); Neutrophils Percent Auto 74.5 % (45-73); Platelet Count 218 X10*3/uL (160-400); Red Blood Count 4.68 X10*6/uL (4.20-5.50); Red Cell Distribution Width 15.3 % (11.0-16.0); White Blood Count 7.8 X10*3/uL (4.8-10.8)
[2022-11-04] MEDS: cefTRIAXone sodium 1 GM in 0.9 % Sodium Chloride 50 ML IV (00:17)
[2022-11-04] MEDS: 0.9 % Sodium Chloride 1,905.09 ML 1905.09 ML IV (00:17)
[2022-11-04] MEDS: Acetaminophen 325 MG TABLET 975 MG PO (00:18)
[2022-11-04 00:42] LABS: Lactic Acid 2.8 mmol/L (0.5-2.0)
[2022-11-04 00:43] LABS: Alanine Aminotransferase 34 U/L (0-31); Albumin Level 3.2 g/dL (3.5-5.0); Alkaline Phosphatase 99 U/L (39-117); Anion Gap 14 (12-20); Aspartate Amino Transferase 54 U/L (5-31); Bilirubin Direct 1.8 mg/dL (0.0-0.5); Blood Urea Nitrogen 9 mg/dL (9-16); Calcium 8.3 mg/dL (8.4-10.2); Carbon Dioxide 22 mmol/L (22-29); Chloride 97 mmol/L (96-108); Creatinine Clr Calc Pharmacy 101.8; Estimated Glomerular Filt Rate > 60; Glucose Random 119 mg/dL (60-115); HCG Quantitative < 2 mIU/mL; Potassium 3.4 mmol/L (3.3-5.1); Sodium 130 mmol/L (135-145); Total Protein 8.3 g/dL (6.5-8.0)
[2022-11-04] MEDS: LORazepam 2 MG/ML VIAL 1 MG IVPUSH (01:30)
[2022-11-04] MEDS: vancomycin HCL 1,500 MG in 0.9 % Sodium Chloride 500 ML 333.33 MG IV (01:40)
[2022-11-04] MEDS: Lidocaine HCl 1 % MPF 5 ML VIAL 20 ML SUBCUT (02:02)
--- NOTE | 2022-11-04 02:04 | PC.NURSE ---
PT TEARFUL, DISTRESSED ABOUT LANCING OF R BUTTOCK ABSCESS, RESISTANT TO CARE. DRESSING IN PLACE. IVF INFUSING THROUGH #18 R SIDED EJ PLACED BY . IV PATENT, POSITIONAL.
--- NOTE | 2022-11-04 02:08 | ED.GENADULT ---
HPI - General Adult General Chief complaint: General Medical Stated complaint: ABSCESS ON R LOWER BACK DRUG USE TODAY Time Seen by Provider: 11/03/22 23:41 History of Present Illness HPI narrative: Patient is a 32-year-old female with a history of polysubstance abuse. Patient's uses IV drugs on a daily basis. Complaining of a large mass on her right gluteal area that is in getting worse over last few days. Patient complaining of fever generalized malaise weakness. Came to the ED for help. Related Data Previous Rx's Medication Instructions Recorded albuterol sulfate 90 mcg/actuation 2 puff inhalation Q4-6H PRN 05/25/22 aerosol inhaler shortness of breath or wheezing #8.5 grams cephalexin 500 mg tablet 500 mg PO QID 7 days #28 tabs 05/25/22 doxycycline hyclate 100 mg capsule 100 mg PO BID 7 days #14 caps 05/25/22 cephalexin 500 mg capsule 500 mg PO QID 7 days #28 caps 05/31/22 doxycycline hyclate 100 mg tablet 100 mg PO BID 7 days #14 tabs 05/31/22 cephalexin 500 mg capsule 500 mg PO QID #28 caps 07/27/22 doxycycline hyclate 100 mg capsule 100 mg PO BID #14 caps 07/27/22 Allergies Allergy/AdvReac Type Severity Reaction Status Date / Time buprenorphine [From Suboxone] Allergy Anaphylaxis Verified 08/23/22 12:08 naloxone [From Suboxone] Allergy Anaphylaxis Verified 08/23/22 12:08 Review of Systems Review of Systems: Positive fever positive abscess Yes all other systems are reviewed and are negative PMF Past Medical History Attestation statement: The following information was validated with the patient. Social History Social History Alcohol intake: former Smoked in Last 30 Days: Yes Use of substances other than those prescribed or required for medical reasons: Yes Substance Use Type: Crack/Cocaine and Heroin Substance Use Frequency: Chronic Longstanding Last Used Substance: Hours (ago) Advance Directives: No Advance Directives Information Provided: Yes Physical Exam ED Vital Signs: Vital Signs - 24 hr 11/03/22 23:21 11/04/22 00:30 11/04/22 01:15 Temperature 101.9 F H Pulse Rate 111 H 106 H 119 H Respiratory Rate 16 36 H 28 H Blood Pressure 142/97 H 132/76 110/91 H Pulse Oximetry 97 94 93 Oxygen Delivery Method Room Air Room Air Room Air BMI result Body Mass Index 23.3 Const Other: Appearance: Alert. Oriented X3. No acute distress. Eyes: Pupils equal, round and reactive to light. ENT: Pharynx normal. Neck: Normal inspection. Neck supple. No lymph nodes noted. No crepitus CVS: Normal heart rate and rhythm. Pulses normal. Normal S1 and S2 Respiratory: No respiratory distress. Breath sounds normal. No Wheezing. No rales Abdomen: Soft and nontender. No rigidity. No distention. good BS x4 quadrant Skin exam there is a large fluctuant mass over the right gluteal area approximately 5 cm x 5 cm in size red warm to touch fluctuant it is away from the old surgical wound that is midline. Extremities: No lower extremity edema. Neurovascular intact to all extremities. No Lacerations. No Rash Neuro: Oriented X 3. No motor deficit. No sensory deficit. Moving all extermities. No slurred speech Medications Administered Discontinued Medications Generic Name Dose Route Start Last Admin Trade Name Freq PRN Reason Stop Dose Admin Acetaminophen 975 mg 11/04/22 00:02 11/04/22 00:18 Acetaminophen 325 Mg Tablet PO 11/04/22 00:03 975 mg ONCE ONE Administration Sodium Chloride 1,905.09 mls @ 1,905.09 mls/hr 11/04/22 00:00 11/04/22 00:17 Ns 30 ml/kg infuse over 1 hr (1905.09 ml) 11/04/22 00:59 1,905.09 mls/hr IV Administration .Q1H STA Ceftriaxone Sodium 1 gm/ 50 mls @ 100 mls/hr 11/04/22 00:04 11/04/22 01:40 Sodium Chloride IV 11/04/22 00:33 Infused ONCE ONE Infusion Vancomycin HCl 1,500 mg/ 500 mls @ 333.333 mls/hr 11/04/22 00:15 11/04/22 01:40 Sodium Chloride IV 11/04/22 01:44 333.33 mls/hr ONCE ONE Administration Protocol Lidocaine HCl 20 ml 11/04/22 00:32 11/04/22 02:02 Lidocaine Hcl 1 % Mpf 5 Ml Vial SUBCUT 11/04/22 00:33 20 ml ONCE ONE Administration Procedures Abscess I/D Site: other (Right gluteal area) Side (if applicable): right Local Anesthetic: lidocaine 1% Amount of anesthesia used (mL): 10 Technique: incised with blade Amount of fluid expressed (mL): 20 Sent for culture/gram staining?: Yes Irrigation: Yes Packing used?: [email or web address] Complications: pain Medical Decision Making Medical Decision Making [facility] Narrative: Patient developed a fever, elevated lactate, consistent with a significant infection. 2 L of IV fluids started. Patient was given vancomycin along with empiric broad coverage with Rocephin. Monitor carefully. Patient's wound was IND. Patient's chest x-ray by my interpretation was negative for pneumonia pneumothorax. Culture was sent. Patient to be admitted to the hospitalist team for further evaluation. Repeat focal exam for sepsis was done at 02:00. Patient generally is improving after IV fluid and I&D.. Patient's test was negative unlikely to be related issues. Differential Diagnosis Differential Diagnoses: The differential diagnosis associated with the presentation includes Sepsis, cellulitis, endocarditis Consult Healthcare Provider Management of the patient was discussed with: Hospitalist Lab Data [facility] Lab Attestation statement: I reviewed the patient's lab results. 11/04/22 00:06 11/04/22 00:06 Labs: Lab Results 11/04/22 Range/Units 00:06 WBC 7.8 (4.8-10.8) X10*3/uL RBC 4.68 (4.20-5.50) X10*6/uL Hgb 12.4 (12.0-16.0) g/dl Hct 37.1 (37.0-47.0) % MCV 79.3 L (80.0-98.0) fL MCH 26.5 L (27.0-33.0) pg MCHC 33.4 (31.0-35.0) g/dl RDW 15.3 (11.0-16.0) % Plt Count 218 (160-400) X10*3/uL MPV 9.5 (9.4-12.3) fL Immature Gran % (Auto) 0.5 H (0.0-0.4) % Neut % (Auto) 74.5 H (45-73) % Lymph % (Auto) 14.7 L (20-40) % [place] % (Auto) 9.5 (2-11) % Eos % (Auto) 0.3 (0-4) % Baso % (Auto) 0.5 (0-2) % Lymph # (Auto) 1.1 L (1.2-4.9) X10*3/uL [place] # (Auto) 0.7 (0.1-1.2) X10*3/uL Eos # (Auto) 0.0 (0.0-0.4) X10*3/uL Baso # (Auto) 0.0 (0.0-0.2) X10*3/uL Abs Immat Gran (auto) 0.04 H (0.00-0.03) X10*3/uL Absolute Neuts (auto) 5.8 (2.0-8.3) x10*3/uL Absolute Nucleated RBC 0.000 (0.0-0.012) X10*3/uL Nucleated RBC % (auto) 0.0 (0.0-0.2) /100WBC Sodium 130 L (135-145) mmol/L Potassium 3.4 (3.3-5.1) mmol/L Chloride 97 (96-108) mmol/L Carbon Dioxide 22 (22-29) mmol/L Anion Gap 14 (12-20) BUN 9 (9-16) mg/dL Creatinine 0.70 (0.5-1.4) mg/dL Estim Creat Clear Calc 101.8 Estimated GFR > 60 Random Glucose 119 H (60-115) mg/dL Lactic Acid 2.8 H* (0.5-2.0) mmol/L Calcium 8.3 L (8.4-10.2) mg/dL Total Bilirubin 3.0 H (0.0-1.0) mg/dL Direct Bilirubin 1.8 H (0.0-0.5) mg/dL AST 54 H (5-31) U/L ALT 34 H (0-31) U/L Alkaline Phosphatase 99 (39-117) U/L Total Protein 8.3 H (6.5-8.0) g/dL Albumin 3.2 L (3.5-5.0) g/dL Beta HCG, Quant < 2 mIU/mL Independent Interpretation I performed an independent interpretation of an: Plain X-Ray Interpretation: Chest x-ray negative Radiology Impression Discussion of test interpretation with radiology: I have reviewed the radiologist's reading. Chronic Conditions Polysubstance abuse Social Determinants Patient?s care significantly limited by Social Determinants of Health including: Alcoholism and drug addiction in family and Problems related to primary support group Critical Care Time Critical Care Time Critical Care Time: Yes Total Critical Care Time: 40 Attestation: I have personally provided 40 minutes of critical care time exclusive of time spent on separately billable procedures. Time includes review of lab data, radiology results, discussion with consultants, and monitoring for potential decompensation. Interventions were performed as documented above Discharge Plan Discharge Clinical Impression: Fever, Abscess Patient Disposition: Admitted As Inpatient Prescriptions: No Action cephalexin 500 mg capsule 500 mg PO QID 7 Days Qty: 28 0RF doxycycline hyclate 100 mg tablet 100 mg PO BID 7 Days Qty: 14 0RF cephalexin 500 mg capsule 500 mg PO QID Qty: 28 0RF doxycycline hyclate 100 mg capsule 100 mg PO BID Qty: 14 0RF cephalexin 500 mg tablet 500 mg PO QID 7 Days Qty: 28 0RF albuterol sulfate 90 mcg/actuation HFA aerosol inhaler 2 puff inhalation Q4-6H PRN (Reason: shortness of breath or wheezing) Qty: 8.5 0RF doxycycline hyclate 100 mg capsule 100 mg PO BID 7 Days Qty: 14 0RF
[2022-11-04 02:10] LABS: Reflex Lactate? Lactic Acid Added
[2022-11-04 02:14] LABS: COVID-19 Test Negative (Negative); IDNOW Serial# 08D9AD1C
[2022-11-04 02:55] LABS: ~Lactic Acid-LAB USE ONLY 0.8 mmol/L (0.5-2.0)
[2022-11-04] MEDS: 0.9 % Sodium Chloride 1,000 ML 999 ML IV ×2 (02:57→03:17)
[2022-11-04] MEDS: Piperacillin Sodium/Tazobactam 3.375 GM in 0.9 % Sodium Chloride 50 ML IV ×4 (03:50→20:43)
[2022-11-04 04:08] LABS: HBc Num1 0.17 S/CO (0.00-0.79); HBsAGNum1 0.35 S/CO (0.00-0.99); Hepatitis A Antibody IgM 0.32 Index (0-0.79); Hepatitis B Core Antibody Nonreactive (Nonreactive); Hepatitis B Surface Antigen Negative (Negative); ~HepC Num1 13.69 S/CO (0.00-0.79); ~Hepatitis A Antibody IgM Nonreactive (Nonreactive); ~Hepatitis B Surface Antibody NONREACTIVE (Nonreactive); ~Hepatitis C Antibody Reactive (Nonreactive)
[2022-11-04 04:15] LABS: Appearance Urine Clear; Color Urine Dark Yellow; Glucose Urine UA Negative (Negative); Leukocyte Esterase Urine Negative (Negative); Nitrite Urine Negative (Negative); UMIC TRIGGER UACC YES; Urine Blood Small (1+) (Negative); Urine Ketones Negative (Negative); Urine Protein 30 (1+) mg/dL (Neg-Trace)
[2022-11-04 04:34] LABS: Amphetamine Screen Urine Not Detected (Not Detect); Barbiturates, Urine Not Detected (Not Detect); Benzodiazepines Screen Urine Not Detected (Not Detect); Cannabinoid Screen Urine Not Detected (Not Detect); Cocaine Screen Urine POSITIVE (Not Detect); Fentanyl, urine POSITIVE (Not Detect); Opiate Screen Urine Not Detected (Not Detect); Phencyclidine Screen Urine Not Detected (Not Detect)
[2022-11-04 04:48] LABS: Bacteria Urine Trace (None Seen); Calcium Oxalate Crystals Urine Present; Hyaline Casts Urine 0-2 /LPF (0-2); Squamous Epithelial Cell Urine 0-2 /HPF (0-2); WBC Urine 0-5 /HPF (0-5)
[2022-11-04 05:51] LABS: MANUAL DIFF FLAG NO
[2022-11-04 05:54] LABS: Basophils Percent Auto 0.5 % (0-2); Eosinophils Percent Auto 0.5 % (0-4); Hematocrit 35.2 % (37.0-47.0); Hemoglobin 11.3 g/dl (12.0-16.0); Imm Gran Abs Auto 0.02 X10*3/uL (0.00-0.03); Imm Gran Pct Auto 0.3 % (0.0-0.4); Lymphocytes Absolute Auto 0.9 X10*3/uL (1.2-4.9); Lymphocytes Percent Auto 15.7 % (20-40); Mean Corpuscular HGB Conc 32.1 g/dl (31.0-35.0); Mean Corpuscular Hemoglobin 25.7 pg (27.0-33.0); Mean Platelet Volume 9.2 fL (9.4-12.3); Monocytes Absolute Auto 0.6 X10*3/uL (0.1-1.2); Monocytes Percent Auto 10.7 % (2-11); Neutrophils Absolute Auto 4.3 x10*3/uL (2.0-8.3); Neutrophils Percent Auto 72.3 % (45-73); Platelet Count 179 X10*3/uL (160-400); Red Cell Distribution Width 15.4 % (11.0-16.0)
[2022-11-04 06:12] LABS: Anion Gap 10 (12-20); Blood Urea Nitrogen 6 mg/dL (9-16); Calcium 7.4 mg/dL (8.4-10.2); Carbon Dioxide 23 mmol/L (22-29); Chloride 109 mmol/L (96-108); Creatinine Clr Calc Pharmacy 116.9; Estimated Glomerular Filt Rate > 60; Glucose Random 104 mg/dL (60-115); Potassium 2.7 mmol/L (3.3-5.1); Sodium 139 mmol/L (135-145)
--- NOTE | 2022-11-04 06:26 | PM.IMHP ---
History of Present Illness Date of Service: 11/04/22 Chief Complaint: Abscess Patient is very obtunded, history is obtained mostly from EMR and ED physician. Patient with a history of IV drug use comes into the hospital with complaints of large abscess on the right lower back, she has a her when IV drug user, I am unable to wake her after she received Ativan pain control for abscess drainage in the ED. On arrival to the ED patient vitals are significant for temperature of 101.9 degrees, heart rate of 111, blood pressure stable Labs are significant for WBC count of 6.0, total bili of 3.0, direct bili of 1.8, AST of 54, ALT of 34, urine drug screen is positive for fentanyl, cocaine, Due to elevated LFT i obtained hepatitis panel which showed positive hepatitis-C Patient will be admitted for further management Review of Systems Review of Systems: Yes Unobtainable due to mental condition and Unobtainable due to mental status PMFSH Medical History IV drug user Social History Alcohol intake: former Smoked in Last 30 Days: Yes Use of substances other than those prescribed or required for medical reasons: Yes Substance Use Type: Crack/Cocaine and Heroin Substance Use Frequency: Chronic Longstanding Last Used Substance: Hours (ago) Advance Directives: No Advance Directives Information Provided: Yes Meds Allergies Allergy/AdvReac Type Severity Reaction Status Date / Time buprenorphine [From Suboxone] Allergy Anaphylaxis Verified 08/23/22 12:08 naloxone [From Suboxone] Allergy Anaphylaxis Verified 08/23/22 12:08 Active Medications: Current Medications Acetaminophen (Acetaminophen 325 Mg Tablet) 650 mg PO Q6H PRN PRN Reason: Pain, Mild (Pain Scale 1-3) Docusate Sodium (Docusate Sodium 100 Mg Capsule) 100 mg PO DAILY PRN PRN Reason: Constipation Enoxaparin Sodium (Enoxaparin Sodium 40 Mg/0.4 Ml Syringe) 40 mg SUBCUT Q24H DONALD Piperacillin Sod/Tazobactam (Sod 3.375 gm/ Sodium Chloride) 50 mls @ 100 mls/hr IV Q6H DONALD Last Infusion: 11/04/22 04:25 Dose: Infused Ondansetron HCl (Ondansetron Hcl 4 Mg/2 Ml Vial) 4 mg IVPUSH Q8H PRN PRN Reason: Nausea and Vomiting Pharmacy Consult (Consult Rx Vancomycin Dosing) 1 each MISCELLANE DAILY PRN PRN Reason: Consult order Sodium Chloride (0.9 % Sodium Chloride Flush 3 Ml Syringe) 3 ml IVFLUSH [facility] Home Medications Medication Instructions Recorded Confirmed Last Taken Type buspirone 5 mg tablet 5 mg PO TID 11/04/22 11/04/22 Unknown History clonidine HCl 0.1 mg tablet 0.1 mg PO TID 11/04/22 11/04/22 Unknown History escitalopram oxalate 10 mg tablet 10 mg PO DAILY 11/04/22 11/04/22 Unknown History furosemide 40 mg tablet 40 mg PO DAILY 11/04/22 11/04/22 Unknown History gabapentin 300 mg capsule 300 mg PO TID 11/04/22 11/04/22 Unknown History methocarbamol 500 mg tablet 500 mg PO TID 11/04/22 11/04/22 Unknown History ondansetron HCl 4 mg tablet 4 mg PO Q8H PRN Nausea 11/04/22 11/04/22 Unknown History spironolactone 50 mg tablet 50 mg PO DAILY 11/04/22 11/04/22 Unknown History trazodone 100 mg tablet 100 mg PO BEDTIME 11/04/22 11/04/22 Unknown History Physical Exam Vital Signs and Narrative: Vital Signs: Last Vital Signs Temp 98.3 F 11/04/22 05:50 Pulse 83 11/04/22 05:50 Resp 20 11/04/22 05:50 BP 106/59 L 11/04/22 05:50 Pulse Ox 94 11/04/22 05:50 O2 Del Method Room Air 11/04/22 05:50 BMI result Body Mass Index 23.3 Const: Other: Patient is very obtunded, unable to assess physical exam General: cooperative and no acute distress Eyes: General: appearance normal, both eyes and all related structures Resp: Effort & Inspection: normal respiratory effort, able to speak in complete sentences and abnormal respiratory pattern Auscultation: clear to auscultation bilaterally Cardio: Rate: regular rate Rhythm: regular rhythm GI: Palpation (GI): Soft to palpation Auscultation: normal bowel sounds Skin: General skin exam: no rashes or lesions noted Extrem: General: Yes normal to inspection and Yes no pedal edema Results Labs 11/04/22 05:47 11/04/22 05:47 Labs: Laboratory Results - last 24 hr 11/04/22 11/04/22 11/04/22 00:06 01:55 02:41 MCV 79.3 L MCH 26.5 L MCHC 33.4 RDW 15.3 Plt Count 218 MPV 9.5 Immature Gran % (Auto) 0.5 H Neut % (Auto) 74.5 H Lymph % (Auto) 14.7 L [place] % (Auto) 9.5 Eos % (Auto) 0.3 Baso % (Auto) 0.5 Lymph # (Auto) 1.1 L [place] # (Auto) 0.7 Eos # (Auto) 0.0 Baso # (Auto) 0.0 Abs Immat Gran (auto) 0.04 H Absolute Neuts (auto) 5.8 Absolute Nucleated RBC 0.000 Nucleated RBC % (auto) 0.0 Anion Gap 14 Estim Creat Clear Calc 101.8 Estimated GFR > 60 Random Glucose 119 H Lactic Acid 2.8 H* Lactic Acid F/U @ 2Hr 0.8 Calcium 8.3 L Total Bilirubin 3.0 H Direct Bilirubin 1.8 H AST 54 H ALT 34 H Alkaline Phosphatase 99 Total Protein 8.3 H Albumin 3.2 L Beta HCG, Quant < 2 Urine Color Urine Appearance Urine pH Ur Specific [place] Urine Protein Urine Glucose (UA) Urine Ketones Urine Blood Urine Nitrite Ur Leukocyte Esterase Urine RBC Urine WBC Ur Squamous Epith Cells Calcium Oxalate Crystal Urine Bacteria Hyaline Casts Urine Opiates Screen Urine Fentanyl Screen Ur Barbiturates Screen Ur Phencyclidine Scrn Ur Amphetamines Screen U Benzodiazepines Scrn Urine Cocaine Screen U Marijuana (THC) Screen COVID-19 (JOCELINE) Negative COVID-19 Clin Com See Note Hepatitis A IgM Ab Hep Bs Antigen Hep Bs Antibody Hep B Core Total Ab Hepatitis C Ab (EIA) 11/04/22 11/04/22 11/04/22 03:13 04:09 05:47 MCV 80.0 MCH 25.7 L MCHC 32.1 RDW 15.4 Plt Count 179 MPV 9.2 L Immature Gran % (Auto) 0.3 Neut % (Auto) 72.3 Lymph % (Auto) 15.7 L [place] % (Auto) 10.7 Eos % (Auto) 0.5 Baso % (Auto) 0.5 Lymph # (Auto) 0.9 L [place] # (Auto) 0.6 Eos # (Auto) 0.0 Baso # (Auto) 0.0 Abs Immat Gran (auto) 0.02 Absolute Neuts (auto) 4.3 Absolute Nucleated RBC 0.000 Nucleated RBC % (auto) 0.0 Anion Gap 10 L Estim Creat Clear Calc 116.9 Estimated GFR > 60 Random Glucose 104 Lactic Acid Lactic Acid F/U @ 2Hr Calcium 7.4 L D Total Bilirubin Direct Bilirubin AST ALT Alkaline Phosphatase Total Protein Albumin Beta HCG, Quant Urine Color Dark Yellow Urine Appearance Clear Urine pH 6.0 Ur Specific [place] 1.010 Urine Protein 30 (1+) H Urine Glucose (UA) Negative Urine Ketones Negative Urine Blood Small (1+) H Urine Nitrite Negative Ur Leukocyte Esterase Negative Urine RBC 3-5 H Urine WBC 0-5 Ur Squamous Epith Cells 0-2 Calcium Oxalate Crystal Present Urine Bacteria Trace Hyaline Casts 0-2 Urine Opiates Screen Not Detected Urine Fentanyl Screen POSITIVE H Ur Barbiturates Screen Not Detected Ur Phencyclidine Scrn Not Detected Ur Amphetamines Screen Not Detected U Benzodiazepines Scrn Not Detected Urine Cocaine Screen POSITIVE H U Marijuana (THC) Screen Not Detected COVID-19 (JOCELINE) COVID-19 Clin Com Hepatitis A IgM Ab Nonreactive Hep Bs Antigen Negative Hep Bs Antibody NONREACTIVE Hep B Core Total Ab Nonreactive Hepatitis C Ab (EIA) Reactive H Imaging Radiologist's Impressions: Impressions Chest X-Ray 11/04/22 00:14 IMPRESSION: No active cardiopulmonary disease. Assessment and Plan (1) IV drug user: Status: Acute (2) Abscess: Status: Acute Plan 32-year-old female past medical history of IV drug use, urine drug screen positive for cocaine and heroin comes into the hospital with complaints of large abscess on the right gluteal area # abscess/cellulitis - right gluteal area status post I&D in the ED - will obtain general surgery consult - broad-spectrum antibiotics with vanc and Zosyn - follow cultures # IV drug user - addiction medicine consulted # transaminitis - hepatitis-C positive - follow-up with GI outpatient - abdominal ultrasound ordered # patient has multiple medications including antihypertensives, which we will hold as her BP is slightly soft DVT prophylaxis: Lovenox Given patient's history of IV drug use, abscess, patient require minimum 2 nights inpatient hospital stay for IV antibiotics Time Spent With Patient Time: Total time managing care of this patient today ____ minutes. Quality Stroke Does the patient have a stroke diagnosis?: No VTE Prior VTE?: No VTE Risk Level:: Medical - moderate - high VTE Device Contraindication: Treatment Not Indicated VTE Drug Contraindication: N/A - Med Ordered
--- NOTE | 2022-11-04 07:21 | PHA.MEDREC ---
Pharmacy Consult ? Medication Reconciliation Pharmacy has completed the medication reconciliation. Reviewed med rec done by nursing
--- NOTE | 2022-11-04 07:44 | PHA.PROG ---
Admission Date/Time: November 04, 2022 02:36 Indication: SKIN/SKIN STRUCTURE Weight in k.503 kg Adjusted body weight in Kg: [place] body weight in Kg: Obesity Dosing Indication % IBW: Serum Creatinine - Last 168 Hours 11/04/22 11/04/22 00:06 05:47 Creatinine 0.70 0.61 Estimated CrCl and GFR - Last 168 Hours 11/04/22 11/04/22 00:06 05:47 Estim Creat Clear Calc 101.8 116.9 Estimated GFR > 60 > 60 Vancomycin Loading Dose: 1500 MG Current Vancomycin Dosing Regimen: 1000MG Q12H Vancomycin Monitoring using AUC goal of 400 - 600 range with trough as surrogate marker: AUC 416, TROUGH 11.5 Date and Time for next Vancomycin Level to be drawn: 11/05 @1200 Pharmacist Comments on Vancomycin Plan: Vancomycin dosing will take advantage of [employer] as a clinical decision support tool that uses Bayesian modeling to calculate individual patient's pharmacokinetic parameters and forecast the patient's drug concentration time course with the target goal AUC 24 range of 400 - 600 mg/L/hr.
[2022-11-04 08:13] LABS: Magnesium 1.7 mg/dL (1.6-2.6)
[2022-11-04] MEDS: Potassium Chloride ER 20 MEQ TAB.ER.PRT 40 MEQ PO (08:32)
[2022-11-04] MEDS: Potassium Chloride/H20 10 MEQ/100 ML PIGGYBACK 100 MEQ IV ×4 (08:33→12:46)
[2022-11-04] MEDS: busPIRone HCl 5 MG TABLET PO ×3 (08:33→20:44)
[2022-11-04] MEDS: cloNIDine HCL 0.1 MG TABLET PO ×2 (08:33→20:44)
[2022-11-04] MEDS: Gabapentin 300 MG CAPSULE PO ×3 (08:33→20:44)
[2022-11-04] MEDS: 0.9 % Sodium Chloride Flush 3 ML SYRINGE IVFLUSH ×2 (08:43→20:44)
--- NOTE | 2022-11-04 08:46 | PC.NURSE ---
pt a&ox3, vss, nsr on the official court interpreter. EJ patent and flushes w/o difficulty. medication administered per provider order. 1 medication not in pyxis - will contact pharmacy. pt asking about her methadone dose - states she goes to [facility] clinic in [place]. pt verbalizes she takes 52mg PO - will reach out to clinic and verify. pt resting comfortably in no apparent distress. call hinds placed within reach.
--- NOTE | 2022-11-04 09:28 | MHC.RECOVRN ---
Addendum entered by Deb Akins RN 11/04/22 09:49: Per [facility] pt last dosed on 10/27 and was provided a take home bottle for 10/28- 52mg. Original Note: T/w in to meet with pt to discuss recovery goals. Pt appearing notably sleepy at this time, unable to maintain a full conversation. Pt able to disclose that she doses with [facility] [place]- 52 mg. Unable to articulate when she was last dose, falling back asleep. Pt allowed to sleep at this time, will f/u with her when she is more alert.
--- NOTE | 2022-11-04 09:50 | PC.NURSE ---
assessed pt's abscess on right buttocks - I&D'd by MD on previous scene shifter - this rn assessed large amount of ecchymosis and erythema around abscess, quarter sized open abscess with small amount of bloody drainage on the 4x4's. no foul odor noted. skin around abscess warm to touch. pt afebrile at the moment.
--- NOTE | 2022-11-04 10:05 | PC.NURSE ---
medication administered per provider order. pt eating breakfast. pt struggling to stay awake as she is leaning forward in bed. pt repositioned to comfort. call hinds placed within reach.
--- NOTE | 2022-11-04 10:43 | PC.NURSE ---
pharmacy called and notified on pt's late medication administration d/t medication not being in the pyxis - pharmacy states that they will bring it down shortly.
--- NOTE | 2022-11-04 10:48 | PC.NURSE ---
report given to RN on S3 - will notify transport.
[2022-11-04] MEDS: methocarbamoL 500 MG TABLET PO ×3 (10:51→20:44)
--- NOTE | 2022-11-04 10:53 | PC.NURSE ---
medication administered late d/t not being in pyxis. per provider order.
--- NOTE | 2022-11-04 10:59 | PM.EVENT ---
Event Note Date of Service: 11/04/22 Event Note: Day hospitalist update S: pain controlled on methadone through [facility] no fever O: VS- T 98.5, BP 102/63, P 88, R 14, SaO2 96 on RA Gen: somnolent but arousable HEENT: sclera anicteric, moist mucus membranes Neck: supple Lungs: clear to auscultation bilaterally Heart: regular rate and rhythm, no murmurs Abd: soft, non-tender, non-distended Ext: no edema Skin: warm/well-perfused, drained gluteal abscess Neuro: alert and oriented x3, no focal findings Psych: appropriate affect Abdomen Ultrasound 11/04/22 08:00 IMPRESSION: Heterogeneous parenchymal appearance of the inferior right lobe with scattered areas of increased echogenicity possibly representing discrete lesions. The largest echogenic focus measures 1.6 x 1.0 x 0.9 cm. Further characterization with MRI abdomen is recommended. Anterior subserosal fibroid 2. 3.5 x 4.4 cm. A/P: d1 32yo F with hx injection drug abuse presenting with large gluteal abscess gluteal abscess/cellulitis - s/p I+D in ED, follow BCx + wound Cx, Gen Surg consult pending, vanc + pip-deepali d1 OUD cocaine abuse - check methadone dose, consult Addiction Med liver lesions - MRI HCV - Ab positive, viral load pending. screen for HIV mood disorder - continue buspirone, clonidine, gabapentin, trazodone, escitalopram VTE ppx - LMWH dispo - eventual home In my clinical judgment, the patient requires continued hospitalization for the following reasons: IV ABX Time Spent With Patient Time: Total time managing care of this patient today ____ minutes.
--- NOTE | 2022-11-04 13:27 | PM.CNGS ---
History of Present Illness Consult details Consult date: 11/04/22 Requesting physician: Jaja Diaz Narrative: 32-year-old female patient presenting with a history of IV drug abuse found to have a large abscess of the right buttock. She presented to the emergency department in an obtunded state and the previous history unable to be obtained. Incision and drainage was performed in the ED and surgical consultation requested for wound management. Patient unable to provide any history at this time. Review of Systems Review of Systems: Yes Unobtainable due to mental status PMFSH Past Medical History Medical History IV drug user Social History Social History Alcohol intake: former Patient Tobacco Use Status: Former Tobacco user Substance Use Type: Crack/Cocaine and Heroin Advance Directives Date on File: 11/04/22 Meds Allergies Allergy/AdvReac Type Severity Reaction Status Date / Time buprenorphine [From Suboxone] Allergy Anaphylaxis Verified 08/23/22 12:08 naloxone [From Suboxone] Allergy Anaphylaxis Verified 08/23/22 12:08 Active Medications: Current Medications Acetaminophen (Acetaminophen 325 Mg Tablet) 650 mg PO Q6H PRN PRN Reason: Pain, Mild (Pain Scale 1-3) Albuterol Sulfate (Albuterol Sulfate 90 Mcg 8 Gm Inhaler) 2 puff INHALE Q4H PRN PRN Reason: shortness of breath or wheezing Buspirone HCl (Buspirone Hcl 5 Mg Tablet) 5 mg PO TID [facility] Last Admin: 11/04/22 08:33 Dose: 5 mg Clonidine HCl (Clonidine Hcl 0.1 Mg Tablet) 0.1 mg PO TID [facility]; Protocol Last Admin: 11/04/22 08:33 Dose: 0.1 mg Docusate Sodium (Docusate Sodium 100 Mg Capsule) 100 mg PO DAILY PRN PRN Reason: Constipation Enoxaparin Sodium (Enoxaparin Sodium 40 Mg/0.4 Ml Syringe) 40 mg SUBCUT Q24H [facility] Last Admin: 11/04/22 08:44 Dose: Not Given Escitalopram Oxalate (Escitalopram Oxalate 10 Mg Tablet) 10 mg PO DAILY [facility] Furosemide (Furosemide 40 Mg Tablet) 40 mg PO DAILY [facility]; Protocol Gabapentin (Gabapentin 300 Mg Capsule) 300 mg PO TID [facility] Last Admin: 11/04/22 08:33 Dose: 300 mg Piperacillin Sod/Tazobactam (Sod 3.375 gm/ Sodium Chloride) 50 mls @ 100 mls/hr IV Q6H [facility] Last Infusion: 11/04/22 09:04 Dose: Infused Vancomycin HCl 1,000 mg/ (Sodium Chloride) 270 mls @ 270 mls/hr IV Q12H [facility] Methocarbamol (Methocarbamol 500 Mg Tablet) 500 mg PO TID [facility] Last Admin: 11/04/22 10:51 Dose: 500 mg Ondansetron HCl (Ondansetron Hcl 4 Mg/2 Ml Vial) 4 mg IVPUSH Q8H PRN PRN Reason: Nausea and Vomiting Pharmacy Consult (Consult Rx Vancomycin Dosing) 1 each MISCELLANE DAILY PRN PRN Reason: Consult order Sodium Chloride (0.9 % Sodium Chloride Flush 3 Ml Syringe) 3 ml IVFLUSH QSHIFT [facility] Last Admin: 11/04/22 08:43 Dose: 3 ml Spironolactone (Spironolactone 25 Mg Tablet) 50 mg PO DAILY [facility]; Protocol Trazodone HCl (Trazodone Hcl 100 Mg Tablet) 100 mg PO BEDTIME [facility] Home Medications Medication Instructions Recorded Confirmed Last Taken Type buspirone 5 mg tablet 5 mg PO TID 11/04/22 11/04/22 Unknown History clonidine HCl 0.1 mg tablet 0.1 mg PO TID 11/04/22 11/04/22 Unknown History escitalopram oxalate 10 mg tablet 10 mg PO DAILY 11/04/22 11/04/22 Unknown History furosemide 40 mg tablet 40 mg PO DAILY 11/04/22 11/04/22 Unknown History gabapentin 300 mg capsule 300 mg PO TID 11/04/22 11/04/22 Unknown History methocarbamol 500 mg tablet 500 mg PO TID 11/04/22 11/04/22 Unknown History ondansetron HCl 4 mg tablet 4 mg PO Q8H PRN Nausea 11/04/22 11/04/22 Unknown History spironolactone 50 mg tablet 50 mg PO DAILY 11/04/22 11/04/22 Unknown History trazodone 100 mg tablet 100 mg PO BEDTIME 11/04/22 11/04/22 Unknown History Physical Exam Vital Signs: Vital Signs: Last Vital Signs Temp 97.0 F 11/04/22 11:36 Pulse 77 11/04/22 11:36 Resp 16 11/04/22 11:36 BP 98/56 L 11/04/22 11:36 Pulse Ox 97 11/04/22 11:36 O2 Del Method Room Air 11/04/22 11:36 BMI result Body Mass Index 23.3 Const: General: patient obtunded and poor hygiene Nutritional Appearance: well nourished Orientation/consciousness: patient obtunded HEENT: Head: Yes abrasion Neck: Neck: Yes normal visual inspection and Yes full ROM Resp: Effort & Inspection: normal respiratory effort, no respiratory distress, no stridor and not tachypneic GI: Inspection: Yes normal to inspection Neuro: General: patient obtunded Extrem: Other: buttock right side: I&D site with copious bloody discharge noted; packing in place, No evidence of active bleeding. Clean dressings applied. Surrounding skin with ecchymosis. Upper/lower leg/hip images: 1. site of I&D. Results Labs 11/04/22 05:47 11/04/22 05:47 Labs: Abnormal lab results 11/04/22 11/04/22 11/04/22 Range/Units 00:06 03:13 04:09 Hgb (12.0-16.0) g/dl Hct (37.0-47.0) % MCV 79.3 L (80.0-98.0) fL MCH 26.5 L (27.0-33.0) pg MPV (9.4-12.3) fL Immature Gran % (Auto) 0.5 H (0.0-0.4) % Neut % (Auto) 74.5 H (45-73) % Lymph % (Auto) 14.7 L (20-40) % Lymph # (Auto) 1.1 L (1.2-4.9) X10*3/uL Abs Immat Gran (auto) 0.04 H (0.00-0.03) X10*3/uL Sodium 130 L (135-145) mmol/L Potassium (3.3-5.1) mmol/L Chloride (96-108) mmol/L Anion Gap (12-20) BUN (9-16) mg/dL Random Glucose 119 H (60-115) mg/dL Lactic Acid 2.8 H* (0.5-2.0) mmol/L Calcium 8.3 L (8.4-10.2) mg/dL Total Bilirubin 3.0 H (0.0-1.0) mg/dL Direct Bilirubin 1.8 H (0.0-0.5) mg/dL AST 54 H (5-31) U/L ALT 34 H (0-31) U/L Total Protein 8.3 H (6.5-8.0) g/dL Albumin 3.2 L (3.5-5.0) g/dL Urine Protein 30 (1+) H (Neg-Trace) mg/dL Urine Blood Small (1+) H (Negative) Urine RBC 3-5 H (0-2) /HPF Urine Fentanyl Screen POSITIVE H (Not Detect) Urine Cocaine Screen POSITIVE H (Not Detect) Hepatitis C Ab (EIA) Reactive H (Nonreactive) 11/04/22 Range/Units 05:47 Hgb 11.3 L (12.0-16.0) g/dl Hct 35.2 L (37.0-47.0) % MCV (80.0-98.0) fL MCH 25.7 L (27.0-33.0) pg MPV 9.2 L (9.4-12.3) fL Immature Gran % (Auto) (0.0-0.4) % Neut % (Auto) (45-73) % Lymph % (Auto) 15.7 L (20-40) % Lymph # (Auto) 0.9 L (1.2-4.9) X10*3/uL Abs Immat Gran (auto) (0.00-0.03) X10*3/uL Sodium (135-145) mmol/L Potassium 2.7 L D (3.3-5.1) mmol/L Chloride 109 H (96-108) mmol/L Anion Gap 10 L (12-20) BUN 6 L (9-16) mg/dL Random Glucose (60-115) mg/dL Lactic Acid (0.5-2.0) mmol/L Calcium 7.4 L D (8.4-10.2) mg/dL Total Bilirubin (0.0-1.0) mg/dL Direct Bilirubin (0.0-0.5) mg/dL AST (5-31) U/L ALT (0-31) U/L Total Protein (6.5-8.0) g/dL Albumin (3.5-5.0) g/dL Urine Protein (Neg-Trace) mg/dL Urine Blood (Negative) Urine RBC (0-2) /HPF Urine Fentanyl Screen (Not Detect) Urine Cocaine Screen (Not Detect) Hepatitis C Ab (EIA) (Nonreactive) Short CBC 11/04/22 11/04/22 Range/Units 00:06 05:47 WBC 7.8 6.0 (4.8-10.8) X10*3/uL Hgb 12.4 11.3 L (12.0-16.0) g/dl Hct 37.1 35.2 L (37.0-47.0) % Plt Count 218 179 (160-400) X10*3/uL BMP 11/04/22 11/04/22 00:06 05:47 Sodium 130 L 139 Potassium 3.4 2.7 L D Chloride 97 109 H Carbon Dioxide 22 23 BUN 9 6 L Creatinine 0.70 0.61 Calcium 8.3 L 7.4 L D Liver Function 11/04/22 Range/Units 00:06 Total Bilirubin 3.0 H (0.0-1.0) mg/dL Direct Bilirubin 1.8 H (0.0-0.5) mg/dL AST 54 H (5-31) U/L ALT 34 H (0-31) U/L Alkaline Phosphatase 99 (39-117) U/L Albumin 3.2 L (3.5-5.0) g/dL Urine 11/04/22 Range/Units 04:09 Urine Color Dark Yellow Urine Appearance Clear Urine pH 6.0 (5.0-9.0) Ur Specific [place] 1.010 (1.005-1.025) Urine Protein 30 (1+) H (Neg-Trace) mg/dL Urine Glucose (UA) Negative (Negative) mg/dL All other labs normal. Assessment and Plan (1) Abscess: Status: Acute Plan 32 year old with history of IVDA, found to have an abscess of the right buttock, s/p I&D in the ED. Dressings changed and bloody discharge noted on dressings. Recommend daily dressing changes with fluffed gauze and ABD pad. Follow up in office in one week after discharge. Please reconsult for any new concerns. Time Spent With Patient Time: Total time managing care of this patient today ____ minutes. Procedures Date of Service Date of Service: 11/04/22
--- NOTE | 2022-11-04 14:02 | PC.NURSE ---
Patient sleeping since arriving to unit. Admission assessment attempted, unable to complete at this time. Respirations even and unlabored. No signs or symptoms of distress.
--- NOTE | 2022-11-04 14:17 | HO.ADDICTCON ---
History of Present Illness Date of Service: 11/04/2022 Chief Complaint: Abscess Reason for Consult: KONG HPI Narrative: Patient is a 32 year old female with OUD currently medically admitted with abscess. Consult requested to evaluate substance use. Patient seen very briefly as she was unable to stay awake and participate in interview Review of Systems Review of Systems No Unobtainable due to mental status Diagnostics Vital Signs (24Hr): Vital Signs - 24 hr 11/03/22 23:21 11/04/22 00:30 11/04/22 01:15 Temperature 101.9 F H Pulse Rate 111 H 106 H 119 H Respiratory Rate 16 36 H 28 H Blood Pressure 142/97 H 132/76 110/91 H Pulse Oximetry 97 94 93 Oxygen Delivery Method Room Air Room Air Room Air 11/04/22 03:14 11/04/22 03:18 11/04/22 05:50 Temperature 100.1 F 98.3 F Pulse Rate 91 83 Respiratory Rate 26 H 20 Blood Pressure 122/84 106/59 L Pulse Oximetry 93 94 Oxygen Delivery Method Room Air Room Air 11/04/22 09:40 11/04/22 11:36 Temperature 98.5 F 97.0 F Pulse Rate 88 77 Respiratory Rate 14 16 Blood Pressure 102/63 98/56 L Pulse Oximetry 96 97 Oxygen Delivery Method Room Air Room Air BMI result Body Mass Index 23.3 Labs 11/04/22 05:47 11/05/22 13:04 Labs: Laboratory Results - last 48 hr 11/04/22 11/04/22 11/04/22 00:06 01:55 02:41 WBC 7.8 RBC 4.68 Hgb 12.4 Hct 37.1 MCV 79.3 L MCH 26.5 L MCHC 33.4 RDW 15.3 Plt Count 218 MPV 9.5 Immature Gran % (Auto) 0.5 H Neut % (Auto) 74.5 H Lymph % (Auto) 14.7 L [place] % (Auto) 9.5 Eos % (Auto) 0.3 Baso % (Auto) 0.5 Lymph # (Auto) 1.1 L [place] # (Auto) 0.7 Eos # (Auto) 0.0 Baso # (Auto) 0.0 Abs Immat Gran (auto) 0.04 H Absolute Neuts (auto) 5.8 Absolute Nucleated RBC 0.000 Nucleated RBC % (auto) 0.0 Sodium 130 L Potassium 3.4 Chloride 97 Carbon Dioxide 22 Anion Gap 14 BUN 9 Creatinine 0.70 Estim Creat Clear Calc 101.8 Estimated GFR > 60 Random Glucose 119 H Lactic Acid 2.8 H* Lactic Acid F/U @ 2Hr 0.8 Calcium 8.3 L Magnesium Total Bilirubin 3.0 H Direct Bilirubin 1.8 H AST 54 H ALT 34 H Alkaline Phosphatase 99 Total Protein 8.3 H Albumin 3.2 L Beta HCG, Quant < 2 Urine Color Urine Appearance Urine pH Ur Specific [place] Urine Protein Urine Glucose (UA) Urine Ketones Urine Blood Urine Nitrite Ur Leukocyte Esterase Urine RBC Urine WBC Ur Squamous Epith Cells Calcium Oxalate Crystal Urine Bacteria Hyaline Casts Urine Opiates Screen Urine Fentanyl Screen Ur Barbiturates Screen Ur Phencyclidine Scrn Ur Amphetamines Screen U Benzodiazepines Scrn Urine Cocaine Screen U Marijuana (THC) Screen COVID-19 (JOCELINE) Negative COVID-19 Clin Com See Note Hepatitis A IgM Ab Hep Bs Antigen Hep Bs Antibody Hep B Core Total Ab Hepatitis C Ab (EIA) 11/04/22 11/04/22 11/04/22 03:13 04:09 05:47 WBC 6.0 RBC 4.40 Hgb 11.3 L Hct 35.2 L MCV 80.0 MCH 25.7 L MCHC 32.1 RDW 15.4 Plt Count 179 MPV 9.2 L Immature Gran % (Auto) 0.3 Neut % (Auto) 72.3 Lymph % (Auto) 15.7 L [place] % (Auto) 10.7 Eos % (Auto) 0.5 Baso % (Auto) 0.5 Lymph # (Auto) 0.9 L [place] # (Auto) 0.6 Eos # (Auto) 0.0 Baso # (Auto) 0.0 Abs Immat Gran (auto) 0.02 Absolute Neuts (auto) 4.3 Absolute Nucleated RBC 0.000 Nucleated RBC % (auto) 0.0 Sodium 139 Potassium 2.7 L D Chloride 109 H Carbon Dioxide 23 Anion Gap 10 L BUN 6 L Creatinine 0.61 Estim Creat Clear Calc 116.9 Estimated GFR > 60 Random Glucose 104 Lactic Acid Lactic Acid F/U @ 2Hr Calcium 7.4 L D Magnesium 1.7 Total Bilirubin Direct Bilirubin AST ALT Alkaline Phosphatase Total Protein Albumin Beta HCG, Quant Urine Color Dark Yellow Urine Appearance Clear Urine pH 6.0 Ur Specific [place] 1.010 Urine Protein 30 (1+) H Urine Glucose (UA) Negative Urine Ketones Negative Urine Blood Small (1+) H Urine Nitrite Negative Ur Leukocyte Esterase Negative Urine RBC 3-5 H Urine WBC 0-5 Ur Squamous Epith Cells 0-2 Calcium Oxalate Crystal Present Urine Bacteria Trace Hyaline Casts 0-2 Urine Opiates Screen Not Detected Urine Fentanyl Screen POSITIVE H Ur Barbiturates Screen Not Detected Ur Phencyclidine Scrn Not Detected Ur Amphetamines Screen Not Detected U Benzodiazepines Scrn Not Detected Urine Cocaine Screen POSITIVE H U Marijuana (THC) Screen Not Detected COVID-19 (JOCELINE) COVID-19 Clin Com Hepatitis A IgM Ab Nonreactive Hep Bs Antigen Negative Hep Bs Antibody NONREACTIVE Hep B Core Total Ab Nonreactive Hepatitis C Ab (EIA) Reactive H Imaging Radiology Impressions: ITS Impressions Chest X-Ray 11/04/22 00:14 IMPRESSION: No active cardiopulmonary disease. Abdomen Ultrasound 11/04/22 08:00 IMPRESSION: Heterogeneous parenchymal appearance of the inferior right lobe with scattered areas of increased echogenicity possibly representing discrete lesions. The largest echogenic focus measures 1.6 x 1.0 x 0.9 cm. Further characterization with MRI abdomen is recommended. Anterior subserosal fibroid 2. 3.5 x 4.4 cm. Mental Status Exam Mental Status Exam Patient Appearance: Unkempt Level of Consciousness: Drowsy Patient Behavior: Asleep (difficulty keeping her eyes open ) Medications Medications Current Medications Acetaminophen (Acetaminophen 325 Mg Tablet) 650 mg PO Q6H PRN PRN Reason: Pain, Mild (Pain Scale 1-3) Albuterol Sulfate (Albuterol Sulfate 90 Mcg 8 Gm Inhaler) 2 puff INHALE Q4H PRN PRN Reason: shortness of breath or wheezing Buspirone HCl (Buspirone Hcl 5 Mg Tablet) 5 mg PO TID [facility] Last Admin: 11/04/22 08:33 Dose: 5 mg Clonidine HCl (Clonidine Hcl 0.1 Mg Tablet) 0.1 mg PO TID [facility]; Protocol Last Admin: 11/04/22 08:33 Dose: 0.1 mg Docusate Sodium (Docusate Sodium 100 Mg Capsule) 100 mg PO DAILY PRN PRN Reason: Constipation Enoxaparin Sodium (Enoxaparin Sodium 40 Mg/0.4 Ml Syringe) 40 mg SUBCUT Q24H [facility] Last Admin: 09/11/23 08:44 Dose: Not Given Escitalopram Oxalate (Escitalopram Oxalate 10 Mg Tablet) 10 mg PO DAILY [facility] Furosemide (Furosemide 40 Mg Tablet) 40 mg PO DAILY [facility]; Protocol Gabapentin (Gabapentin 300 Mg Capsule) 300 mg PO TID [facility] Last Admin: 11/04/22 08:33 Dose: 300 mg Piperacillin Sod/Tazobactam (Sod 3.375 gm/ Sodium Chloride) 50 mls @ 100 mls/hr IV Q6H [facility] Last Infusion: 11/04/22 09:04 Dose: Infused Vancomycin HCl 1,000 mg/ (Sodium Chloride) 270 mls @ 270 mls/hr IV Q12H [facility] Methocarbamol (Methocarbamol 500 Mg Tablet) 500 mg PO TID [facility] Last Admin: 11/04/22 10:51 Dose: 500 mg Ondansetron HCl (Ondansetron Hcl 4 Mg/2 Ml Vial) 4 mg IVPUSH Q8H PRN PRN Reason: Nausea and Vomiting Pharmacy Consult (Consult Rx Vancomycin Dosing) 1 each MISCELLANE DAILY PRN PRN Reason: Consult order Sodium Chloride (0.9 % Sodium Chloride Flush 3 Ml Syringe) 3 ml IVFLUSH QSHIFT [facility] Last Admin: 11/04/22 08:43 Dose: 3 ml Spironolactone (Spironolactone 25 Mg Tablet) 50 mg PO DAILY [facility]; Protocol Trazodone HCl (Trazodone Hcl 100 Mg Tablet) 100 mg PO BEDTIME [facility] Allergies Allergies Allergy/AdvReac Type Severity Reaction Status Date / Time buprenorphine [From Suboxone] Allergy Anaphylaxis Verified 08/23/22 12:08 naloxone [From Suboxone] Allergy Anaphylaxis Verified 08/23/22 12:08 Assessment & Plan Assessment & Plan (1) Opioid use disorder: Status: Acute Code(s): F11.90 - Opioid use, unspecified, uncomplicated Assessment and Plan: patient quite drowsy at this time--methadone 10mg q3 hrs PRN for withdrawal max of 3 doses restart methadone 30mg QD in AM patient already engaged with [facility]--plan to return there at time of discharge will continue to follow Total time managing care of this patient today ____ minutes. PMFSH Past Medical History Medical History IV drug user Social History Social History Household Members: Unknown / Unable to assess Housing: Unknown / Unable to assess Unable to assess alcohol history related to: Refusing to respond Alcohol intake: former Patient Tobacco Use Status: Former Tobacco user Substance Use Type: Crack/Cocaine and Heroin Advance Directives Date on File: 11/04/22 service: No
[2022-11-04] MEDS: vancomycin HCL 1,000 MG in 0.9 % Sodium Chloride 250 ML 270 MG IV (14:27)
[2022-11-04] MEDS: iohexoL 350 MG/ML 100 ML INFUS..BTL 85 ML IV (17:00)
[2022-11-04] MEDS: traZODone HCL 100 MG TABLET PO (20:44)
[2022-11-04] MEDS: methADONE HCl 20 MG/2 ML ORAL.CONC 10 MG PO (20:56)
[2022-11-05] MEDS: vancomycin HCL 1,000 MG in 0.9 % Sodium Chloride 250 ML 270 MG IV (01:19)
[2022-11-05] MEDS: Piperacillin Sodium/Tazobactam 3.375 GM in 0.9 % Sodium Chloride 50 ML IV ×4 (02:27→23:00)
[2022-11-05 04:00] VITALS: BP 104/55; PULSE 73; RESP 18; TEMP 36.4; O2SAT 97
[2022-11-05 07:50] VITALS: BP 118/69; PULSE 78; RESP 18; TEMP 36.1; O2SAT 97
[2022-11-05] MEDS: methADONE HCl 20 MG/2 ML ORAL.CONC PO (08:14)
[2022-11-05] MEDS: Acetaminophen 325 MG TABLET 650 MG PO ×2 (08:14→19:43)
[2022-11-05] MEDS: Gabapentin 300 MG CAPSULE PO ×3 (08:17→19:44)
[2022-11-05] MEDS: busPIRone HCl 5 MG TABLET PO ×3 (08:17→19:44)
[2022-11-05] MEDS: Spironolactone 25 MG TABLET 50 MG PO (08:17)
[2022-11-05] MEDS: Furosemide 40 MG TABLET PO (08:17)
[2022-11-05] MEDS: cloNIDine HCL 0.1 MG TABLET PO (08:17)
[2022-11-05] MEDS: Escitalopram Oxalate 10 MG TABLET PO (08:17)
[2022-11-05] MEDS: methocarbamoL 500 MG TABLET PO ×3 (08:17→19:44)
[2022-11-05] MEDS: 0.9 % Sodium Chloride Flush 3 ML SYRINGE IVFLUSH ×3 (08:18→19:45)
--- NOTE | 2022-11-05 09:28 | MHC.CM.PN ---
pt stays w/ a friend on [facility] in [place] she goes to methadone clinic on [facility] pt re[ports [facility] she usually walks to friends when dcd dc plan resume methadone clonic
--- NOTE | 2022-11-05 10:20 | P.PNIM_ITS ---
Subjective Subjective Date of Service: 11/05/22 Interval History: more awake today pain at abscess site controlled no fever Review of Systems Review of Systems: Yes all other systems are reviewed and are negative Physical Exam 2 Vital Signs: Vital Signs: Last Vital Signs Temp 97.0 F 11/05/22 07:50 Pulse 78 11/05/22 07:50 Resp 18 11/05/22 07:50 BP 118/69 11/05/22 07:50 Pulse Ox 97 11/05/22 07:50 O2 Del Method Room Air 11/05/22 07:50 BMI result Body Mass Index 25.3 Gen: NAD HEENT: sclera anicteric, moist mucus membranes Neck: supple Lungs: clear to auscultation bilaterally Heart: regular rate and rhythm, no murmurs Abd: soft, non-tender, non-distended Ext: no edema Skin: warm/well-perfused, drained gluteal abscess Neuro: alert and oriented x3, no focal findings Psych: appropriate affect Objective Data Active Medications Acetaminophen (Acetaminophen 325 Mg Tablet) 650 mg PO Q6H PRN PRN Reason: Pain, Mild (Pain Scale 1-3) Last Admin: 11/05/22 08:14 Dose: 650 mg Documented By: PADDY Albuterol Sulfate (Albuterol Sulfate 90 Mcg 8 Gm Inhaler) 2 puff INHALE Q4H PRN PRN Reason: shortness of breath or wheezing Buspirone HCl (Buspirone Hcl 5 Mg Tablet) 5 mg PO TID [facility] Last Admin: 11/05/22 08:17 Dose: 5 mg Documented By: PADDY Clonidine HCl (Clonidine Hcl 0.1 Mg Tablet) 0.1 mg PO TID [facility]; Protocol Last Admin: 11/05/22 08:17 Dose: 0.1 mg Documented By: PADDY Docusate Sodium (Docusate Sodium 100 Mg Capsule) 100 mg PO DAILY PRN PRN Reason: Constipation Enoxaparin Sodium (Enoxaparin Sodium 40 Mg/0.4 Ml Syringe) 40 mg SUBCUT Q24H [facility] Last Admin: 11/05/22 08:18 Dose: Not Given Documented By: PADDY Non-Admin Reason: Patient Refused Escitalopram Oxalate (Escitalopram Oxalate 10 Mg Tablet) 10 mg PO DAILY [facility] Last Admin: 11/05/22 08:17 Dose: 10 mg Documented By: PADDY Furosemide (Furosemide 40 Mg Tablet) 40 mg PO DAILY [facility]; Protocol Last Admin: 11/05/22 08:17 Dose: 40 mg Documented By: PADDY Gabapentin (Gabapentin 300 Mg Capsule) 300 mg PO TID [facility] Last Admin: 11/05/22 08:17 Dose: 300 mg Documented By: PADDY Piperacillin Sod/Tazobactam (Sod 3.375 gm/ Sodium Chloride) 50 mls @ 100 mls/hr IV Q6H [facility] Last Infusion: 11/05/22 09:04 Dose: Infused Documented By: PADDY Vancomycin HCl 1,000 mg/ (Sodium Chloride) 270 mls @ 270 mls/hr IV Q12H [facility] Last Infusion: 11/05/22 02:27 Dose: Infused Documented By: LIBAN Methadone HCl (Methadone Hcl 20 Mg/2 Ml Oral.Conc) 30 mg PO DAILY [facility] Methocarbamol (Methocarbamol 500 Mg Tablet) 500 mg PO TID [facility] Last Admin: 11/05/22 08:17 Dose: 500 mg Documented By: PADDY Ondansetron HCl (Ondansetron Hcl 4 Mg/2 Ml Vial) 4 mg IVPUSH Q8H PRN PRN Reason: Nausea and Vomiting Pharmacy Consult (Consult Rx Vancomycin Dosing) 1 each MISCELLANE DAILY PRN PRN Reason: Consult order Sodium Chloride (0.9 % Sodium Chloride Flush 3 Ml Syringe) 3 ml IVFLUSH QSHIFT [facility] Last Admin: 11/05/22 08:18 Dose: 3 ml Documented By: PADDY Spironolactone (Spironolactone 25 Mg Tablet) 50 mg PO DAILY [facility]; Protocol Last Admin: 11/05/22 08:17 Dose: 50 mg Documented By: PADDY Trazodone HCl (Trazodone Hcl 100 Mg Tablet) 100 mg PO BEDTIME [facility] Last Admin: 11/04/22 20:44 Dose: 100 mg Documented By: LIBAN Labs 11/04/22 05:47 11/04/22 05:47 Microbiology Microbiology Results: Microbiology 11/04/22 02:24 Gram Stain - Final Abscess Rectal Routine Culture - Preliminary Culture in progress. 11/04/22 00:06 Blood Culture - Preliminary Blood - Venous No growth after 24 hours. 11/04/22 00:06 Blood Culture - Preliminary Blood - Venous No growth after 24 hours. Assessment and Plan (1) IV drug user: Status: Acute (2) Abscess: Status: Acute Plan d2 32yo F with hx injection drug abuse presenting with large gluteal abscess gluteal abscess/cellulitis - s/p I+D in ED, follow BCx + wound Cx, Gen Surg consulted, change dressings bid with fluffed gauze/ABD pad/paper tape, vanc + pip-deepali d2 hypoK - repleted, recheck pending OUD cocaine abuse - Addiction Med consulted, resuming methadone abnormal soft tissue anterior to the sacrum - pelvic CT today liver/spleen abnormality - MRI tomorrow HCV - Ab positive, viral load pending. screen for HIV pending mood disorder - continue buspirone, clonidine, gabapentin, trazodone, escitalopram VTE ppx - LMWH dispo - eventual home In my clinical judgment, the patient requires continued hospitalization for the following reasons: IV ABX Time Spent With Patient Time: Total time managing care of this patient today __35__ minutes. Quality Stroke Does the patient have a stroke diagnosis?: No VTE Prior VTE?: No VTE Risk Level:: Medical - moderate - high VTE Device Contraindication: Treatment Not Indicated VTE Drug Contraindication: N/A - Med Ordered
--- NOTE | 2022-11-05 10:25 | MHC.RECOVRN ---
This service writer met with patient for addiction consult. Pt admitted for abscess. Pt was sleeping, lethargic, difficult to wake, attempted x's 2 verbal command. Pt awoke, reports hungry, set up with food tray. Reviewed with pt Addiction/Recovery to return when pt more alert and stable. Pt verbalized understanding.
[2022-11-05 13:30] LABS: Vancomycin Random 9.8 mcg/mL (15-20)
[2022-11-05 13:32] LABS: Alanine Aminotransferase 23 U/L (0-31); Albumin Level 2.7 g/dL (3.5-5.0); Alkaline Phosphatase 76 U/L (39-117); Anion Gap 10 (12-20); Aspartate Amino Transferase 28 U/L (5-31); Bilirubin Total 1.5 mg/dL (0.0-1.0); Blood Urea Nitrogen 6 mg/dL (9-16); Calcium 8.1 mg/dL (8.4-10.2); Carbon Dioxide 21 mmol/L (22-29); Chloride 114 mmol/L (96-108); Estimated Glomerular Filt Rate > 60; Glucose Random 96 mg/dL (60-115); Potassium 3.2 mmol/L (3.3-5.1); Sodium 142 mmol/L (135-145); Total Protein 6.8 g/dL (6.5-8.0)
--- NOTE | 2022-11-05 13:36 | HE.PHANOTE ---
RE VANCO DOSE SCR STABLE AT 0.66. TROUGH LOW AT 9.8. WILL INCREASE DOSE TO 1250 Q12 AND RECHECK LEVEL 11/06 TO ENSURE PROPER DOSING.
[2022-11-05] MEDS: vancomycin HCL 1,250 MG in 0.9 % Sodium Chloride 250 ML 166.67 MG IV (14:17)
[2022-11-05] MEDS: Potassium Chloride ER 20 MEQ TAB.ER.PRT 40 MEQ PO (15:22)
[2022-11-05 16:00] VITALS: BP 95/55; PULSE 61; RESP 18; TEMP 36.5; O2SAT 97
[2022-11-05] MEDS: Magnesium Hydrox/Alum Hydrox 30 ML ORAL.SUSP PO (16:28)
[2022-11-05 19:34] VITALS: BP 120/74; PULSE 66; RESP 18; TEMP 36.6; O2SAT 98
[2022-11-05] MEDS: traZODone HCL 100 MG TABLET PO (19:44)
--- NOTE | 2022-11-05 21:44 | P.PNADD_ITS ---
Subjective Subjective Date of Service: 11/05/22 Reason For Visit: Abscess Interim History: Patient seen in follow up More awake and able to engage in interview. Earlier in the morning was reportedly drowsy and difficult to engage Methadone 20mg given with positive effect. Patient reports feeling better . Would like to continue increasing methadone dose. Appearing comfortable. Denies any withdrawal sx. Review of Systems Constitutional: Reports as per HPI Diagnostics Vital Signs (24Hr): Vital Signs - 24 hr 11/05/22 04:00 11/05/22 07:50 11/05/22 16:00 Temperature 97.5 F 97.0 F 97.7 F Pulse Rate 73 78 61 Respiratory Rate 18 18 18 Blood Pressure 104/55 L 118/69 95/55 L Pulse Oximetry 97 97 97 Oxygen Delivery Method Room Air Room Air Room Air 11/05/22 19:34 Temperature 97.8 F Pulse Rate 66 Respiratory Rate 18 Blood Pressure 120/74 Pulse Oximetry 98 Oxygen Delivery Method Room Air BMI result Body Mass Index 25.3 Labs 11/04/22 05:47 11/05/22 13:04 Labs: Laboratory Results - last 48 hr 11/04/22 11/04/22 11/04/22 00:06 01:55 02:41 WBC 7.8 RBC 4.68 Hgb 12.4 Hct 37.1 MCV 79.3 L MCH 26.5 L MCHC 33.4 RDW 15.3 Plt Count 218 MPV 9.5 Immature Gran % (Auto) 0.5 H Neut % (Auto) 74.5 H Lymph % (Auto) 14.7 L [place] % (Auto) 9.5 Eos % (Auto) 0.3 Baso % (Auto) 0.5 Lymph # (Auto) 1.1 L [place] # (Auto) 0.7 Eos # (Auto) 0.0 Baso # (Auto) 0.0 Abs Immat Gran (auto) 0.04 H Absolute Neuts (auto) 5.8 Absolute Nucleated RBC 0.000 Nucleated RBC % (auto) 0.0 Sodium 130 L Potassium 3.4 Chloride 97 Carbon Dioxide 22 Anion Gap 14 BUN 9 Creatinine 0.70 Estim Creat Clear Calc 101.8 Estimated GFR > 60 Random Glucose 119 H Lactic Acid 2.8 H* Lactic Acid F/U @ 2Hr 0.8 Calcium 8.3 L Magnesium Total Bilirubin 3.0 H Direct Bilirubin 1.8 H AST 54 H ALT 34 H Alkaline Phosphatase 99 Total Protein 8.3 H Albumin 3.2 L Beta HCG, Quant < 2 Urine Color Urine Appearance Urine pH Ur Specific [place] Urine Protein Urine Glucose (UA) Urine Ketones Urine Blood Urine Nitrite Ur Leukocyte Esterase Urine RBC Urine WBC Ur Squamous Epith Cells Calcium Oxalate Crystal Urine Bacteria Hyaline Casts Random Vancomycin Urine Opiates Screen Urine Fentanyl Screen Ur Barbiturates Screen Ur Phencyclidine Scrn Ur Amphetamines Screen U Benzodiazepines Scrn Urine Cocaine Screen U Marijuana (THC) Screen COVID-19 (JOCELINE) Negative COVID-19 Clin Com See Note Hepatitis A IgM Ab Hep Bs Antigen Hep Bs Antibody Hep B Core Total Ab Hepatitis C Ab (EIA) 11/04/22 11/04/22 11/04/22 03:13 04:09 05:47 WBC 6.0 RBC 4.40 Hgb 11.3 L Hct 35.2 L MCV 80.0 MCH 25.7 L MCHC 32.1 RDW 15.4 Plt Count 179 MPV 9.2 L Immature Gran % (Auto) 0.3 Neut % (Auto) 72.3 Lymph % (Auto) 15.7 L [place] % (Auto) 10.7 Eos % (Auto) 0.5 Baso % (Auto) 0.5 Lymph # (Auto) 0.9 L [place] # (Auto) 0.6 Eos # (Auto) 0.0 Baso # (Auto) 0.0 Abs Immat Gran (auto) 0.02 Absolute Neuts (auto) 4.3 Absolute Nucleated RBC 0.000 Nucleated RBC % (auto) 0.0 Sodium 139 Potassium 2.7 L D Chloride 109 H Carbon Dioxide 23 Anion Gap 10 L BUN 6 L Creatinine 0.61 Estim Creat Clear Calc 116.9 Estimated GFR > 60 Random Glucose 104 Lactic Acid Lactic Acid F/U @ 2Hr Calcium 7.4 L D Magnesium 1.7 Total Bilirubin Direct Bilirubin AST ALT Alkaline Phosphatase Total Protein Albumin Beta HCG, Quant Urine Color Dark Yellow Urine Appearance Clear Urine pH 6.0 Ur Specific [place] 1.010 Urine Protein 30 (1+) H Urine Glucose (UA) Negative Urine Ketones Negative Urine Blood Small (1+) H Urine Nitrite Negative Ur Leukocyte Esterase Negative Urine RBC 3-5 H Urine WBC 0-5 Ur Squamous Epith Cells 0-2 Calcium Oxalate Crystal Present Urine Bacteria Trace Hyaline Casts 0-2 Random Vancomycin Urine Opiates Screen Not Detected Urine Fentanyl Screen POSITIVE H Ur Barbiturates Screen Not Detected Ur Phencyclidine Scrn Not Detected Ur Amphetamines Screen Not Detected U Benzodiazepines Scrn Not Detected Urine Cocaine Screen POSITIVE H U Marijuana (THC) Screen Not Detected COVID-19 (JOCELINE) COVID-19 Clin Com Hepatitis A IgM Ab Nonreactive Hep Bs Antigen Negative Hep Bs Antibody NONREACTIVE Hep B Core Total Ab Nonreactive Hepatitis C Ab (EIA) Reactive H 11/05/22 11/05/22 11/05/22 13:04 13:04 13:04 WBC RBC Hgb Hct MCV MCH MCHC RDW Plt Count MPV Immature Gran % (Auto) Neut % (Auto) Lymph % (Auto) [place] % (Auto) Eos % (Auto) Baso % (Auto) Lymph # (Auto) [place] # (Auto) Eos # (Auto) Baso # (Auto) Abs Immat Gran (auto) Absolute Neuts (auto) Absolute Nucleated RBC Nucleated RBC % (auto) Sodium 142 Potassium 3.2 L Chloride 114 H Carbon Dioxide 21 L Anion Gap 10 L BUN 6 L Creatinine 0.66 Cancelled Estim Creat Clear Calc 117.0 Cancelled Estimated GFR > 60 Random Glucose Lactic Acid Lactic Acid F/U @ 2Hr Calcium Magnesium Total Bilirubin Direct Bilirubin AST ALT Alkaline Phosphatase Total Protein Albumin Beta HCG, Quant Urine Color Urine Appearance Urine pH Ur Specific [place] Urine Protein Urine Glucose (UA) Urine Ketones Urine Blood Urine Nitrite Ur Leukocyte Esterase Urine RBC Urine WBC Ur Squamous Epith Cells Calcium Oxalate Crystal Urine Bacteria Hyaline Casts Random Vancomycin Urine Opiates Screen Urine Fentanyl Screen Ur Barbiturates Screen Ur Phencyclidine Scrn Ur Amphetamines Screen U Benzodiazepines Scrn Urine Cocaine Screen U Marijuana (THC) Screen COVID-19 (JOCELINE) COVID-19 Clin Com Hepatitis A IgM Ab Hep Bs Antigen Hep Bs Antibody Hep B Core Total Ab Hepatitis C Ab (EIA) 11/05/22 13:04 WBC RBC Hgb Hct MCV MCH MCHC RDW Plt Count MPV Immature Gran % (Auto) Neut % (Auto) Lymph % (Auto) [place] % (Auto) Eos % (Auto) Baso % (Auto) Lymph # (Auto) [place] # (Auto) Eos # (Auto) Baso # (Auto) Abs Immat Gran (auto) Absolute Neuts (auto) Absolute Nucleated RBC Nucleated RBC % (auto) Sodium Potassium Chloride Carbon Dioxide Anion Gap BUN Creatinine Estim Creat Clear Calc Estimated GFR Cancelled Random Glucose 96 Lactic Acid Lactic Acid F/U @ 2Hr Calcium 8.1 L D Magnesium 2.0 Total Bilirubin 1.5 H Direct Bilirubin AST 28 ALT 23 Alkaline Phosphatase 76 Total Protein 6.8 Albumin 2.7 L Beta HCG, Quant Urine Color Urine Appearance Urine pH Ur Specific [place] Urine Protein Urine Glucose (UA) Urine Ketones Urine Blood Urine Nitrite Ur Leukocyte Esterase Urine RBC Urine WBC Ur Squamous Epith Cells Calcium Oxalate Crystal Urine Bacteria Hyaline Casts Random Vancomycin 9.8 L Urine Opiates Screen Urine Fentanyl Screen Ur Barbiturates Screen Ur Phencyclidine Scrn Ur Amphetamines Screen U Benzodiazepines Scrn Urine Cocaine Screen U Marijuana (THC) Screen COVID-19 (JOCELINE) COVID-19 Clin Com Hepatitis A IgM Ab Hep Bs Antigen Hep Bs Antibody Hep B Core Total Ab Hepatitis C Ab (EIA) Imaging Radiology Impressions: ITS Impressions Chest X-Ray 11/04/22 00:14 IMPRESSION: No active cardiopulmonary disease. Abdomen Ultrasound 11/04/22 08:00 IMPRESSION: Heterogeneous parenchymal appearance of the inferior right lobe with scattered areas of increased echogenicity possibly representing discrete lesions. The largest echogenic focus measures 1.6 x 1.0 x 0.9 cm. Further characterization with MRI abdomen is recommended. Anterior subserosal fibroid 2. 3.5 x [address] 11/04/22 17:02 IMPRESSION: Heterogeneous enhancement of the liver and spleen particularly the posterior segment of the right lobe of the liver and the inferior spleen. Discrete lesion not appreciated. Trace ascites around the liver and spleen. Upper normal-size retroperitoneal lymph nodes. Question right heart compromise. Some of the liver changes may be vascular. Follow-up liver MRI recommended. Upper normal-size retroperitoneal lymph nodes. Diverticulosis. Extensive postsurgical changes to the lower spine and sacrum. 1 cm anterior subluxation L5 with respect. Lucency adjacent to the bilateral L4 and S1 screws questionable for loosening. Question soft tissue collection over the right buttock posterior to the right sacroiliac joint. There is also question of abnormal soft tissue anterior to the sacrum on the most inferior images. Pelvic CT should be considered. Findings will be communicated by the [place] work flow technical healthcare consultant. Fleischner guidelines were followed. Medications Medications Current Medications Acetaminophen (Acetaminophen 325 Mg Tablet) 650 mg PO Q6H PRN PRN Reason: Pain, Mild (Pain Scale 1-3) Last Admin: 11/05/22 19:43 Dose: 650 mg Al Hydroxide/Mg Hydroxide (Magnesium Hydrox/Alum Hydrox 30 Ml Oral.Susp) 30 ml PO Q4H PRN PRN Reason: heart burn Last Admin: 11/05/22 16:28 Dose: 30 ml Albuterol Sulfate (Albuterol Sulfate 90 Mcg 8 Gm Inhaler) 2 puff INHALE Q4H PRN PRN Reason: shortness of breath or wheezing Buspirone HCl (Buspirone Hcl 5 Mg Tablet) 5 mg PO TID [facility] Last Admin: 11/05/22 19:44 Dose: 5 mg Clonidine HCl (Clonidine Hcl 0.1 Mg Tablet) 0.1 mg PO TID PRN; Protocol PRN Reason: anxiety/restlessness Docusate Sodium (Docusate Sodium 100 Mg Capsule) 100 mg PO DAILY PRN PRN Reason: Constipation Enoxaparin Sodium (Enoxaparin Sodium 40 Mg/0.4 Ml Syringe) 40 mg SUBCUT Q24H [facility] Last Admin: 11/05/22 08:18 Dose: Not Given Escitalopram Oxalate (Escitalopram Oxalate 10 Mg Tablet) 10 mg PO DAILY [facility] Last Admin: 11/05/22 08:17 Dose: 10 mg Furosemide (Furosemide 40 Mg Tablet) 40 mg PO DAILY [facility]; Protocol Last Admin: 11/05/22 08:17 Dose: 40 mg Gabapentin (Gabapentin 300 Mg Capsule) 300 mg PO BID@1300,2100 [facility] Vancomycin HCl 1,250 mg/ (Sodium Chloride) 250 mls @ 166.667 mls/hr IV Q12H [facility] Last Infusion: 11/05/22 16:42 Dose: Infused Piperacillin Sod/Tazobactam (Sod 3.375 gm/ Sodium Chloride) 50 mls @ 100 mls/hr IV Q6H [facility] Last Infusion: 11/05/22 17:27 Dose: Infused Methocarbamol (Methocarbamol 500 Mg Tablet) 500 mg PO TID [facility] Last Admin: 11/05/22 19:44 Dose: 500 mg Ondansetron HCl (Ondansetron Hcl 4 Mg/2 Ml Vial) 4 mg IVPUSH Q8H PRN PRN Reason: Nausea and Vomiting Pharmacy Consult (Consult Rx Vancomycin Dosing) 1 each MISCELLANE DAILY PRN PRN Reason: Consult order Sodium Chloride (0.9 % Sodium Chloride Flush 3 Ml Syringe) 3 ml IVFLUSH QSHIFT [facility] Last Admin: 11/05/22 19:45 Dose: 3 ml Spironolactone (Spironolactone 25 Mg Tablet) 50 mg PO DAILY [facility]; Protocol Last Admin: 11/05/22 08:17 Dose: 50 mg Trazodone HCl (Trazodone Hcl 100 Mg Tablet) 100 mg PO BEDTIME [facility] Last Admin: 11/05/22 19:44 Dose: 100 mg Allergies Allergies Allergy/AdvReac Type Severity Reaction Status Date / Time buprenorphine [From Suboxone] Allergy Anaphylaxis Verified 08/23/22 12:08 naloxone [From Suboxone] Allergy Anaphylaxis Verified 08/23/22 12:08 Assessment & Plan Assessment & Plan (1) Opioid use disorder: Status: Acute Code(s): F11.90 - Opioid use, unspecified, uncomplicated Assessment and Plan: * due to reported sedation in AM, changed clonidine to PRN * Gabapentin AM dose held for now * Methadone 30mg in AM * will continue to follow Total time managing care of this patient today __20__ minutes.
--- NOTE | 2022-11-05 23:36 | MHC.PIE ---
p; pt c/o pain 12/03 to buttocks. note; prn tylenol given at 194. i; dr archibald notified e; [facility]
[2022-11-05] MEDS: Ketorolac Tromethamine 30 MG/ML VIAL IVPUSH (23:49)
[2022-11-06 03:01] VITALS: BP 115/69; PULSE 57; RESP 16; TEMP 36; O2SAT 96
[2022-11-06] MEDS: vancomycin HCL 1,250 MG in 0.9 % Sodium Chloride 250 ML 166.67 MG IV (03:02)
[2022-11-06 04:14] LABS: HIV AB/AG Nonreactive (Nonreactive); HIV Num 1 0.06 S/CO (0.00-0.99)
[2022-11-06] MEDS: Piperacillin Sodium/Tazobactam 3.375 GM in 0.9 % Sodium Chloride 50 ML IV ×4 (04:43→21:21)
[2022-11-06 07:29] VITALS: BP 128/70; PULSE 57; RESP 16; TEMP 36.6; O2SAT 96
[2022-11-06 08:33] LABS: Anion Gap 12 (12-20); Blood Urea Nitrogen 13 mg/dL (9-16); Calcium 8.2 mg/dL (8.4-10.2); Carbon Dioxide 19 mmol/L (22-29); Chloride 116 mmol/L (96-108); Creatinine Clr Calc Pharmacy 105.8; Estimated Glomerular Filt Rate > 60; Glucose Random 78 mg/dL (60-115); Sodium 143 mmol/L (135-145)
[2022-11-06] MEDS: methADONE HCl 20 MG/2 ML ORAL.CONC 30 MG PO (08:53)
[2022-11-06] MEDS: Spironolactone 25 MG TABLET 50 MG PO (08:54)
[2022-11-06] MEDS: Escitalopram Oxalate 10 MG TABLET PO (08:54)
[2022-11-06] MEDS: cloNIDine HCL 0.1 MG TABLET PO ×3 (08:54→21:14)
[2022-11-06] MEDS: Acetaminophen 325 MG TABLET 650 MG PO ×2 (08:54→16:46)
[2022-11-06] MEDS: busPIRone HCl 5 MG TABLET PO ×3 (08:54→21:15)
[2022-11-06] MEDS: methocarbamoL 500 MG TABLET PO ×2 (08:55→21:14)
[2022-11-06] MEDS: Furosemide 40 MG TABLET PO (08:55)
[2022-11-06] MEDS: 0.9 % Sodium Chloride Flush 3 ML SYRINGE IVFLUSH ×3 (08:58→22:20)
--- NOTE | 2022-11-06 10:35 | P.DS_ITS ---
DS: Providers Provider Date of Service: 11/09/22 Date of admission: 11/04/22 02:36 Date of discharge: 11/09/22 Primary care physician: None Physician Consults: 11/04/22 06:34 Addiction Medicine Routine Consulting Provider: Addiction Covering Reason for consultation: IVDU Has provider been notified: No Consult to General Surgery Routine Consulting [place] [facility] [place] Reason for consultation: Abscess, s/p I&D in the ED DS: Diagnosis Discharge Diagnosis (1) Opioid use disorder: Status: Acute (2) IV drug user: Status: Acute (3) Abscess: Status: Acute (4) Osteomyelitis, pelvic region and thigh: Status: Acute (5) Chronic hepatitis C without hepatic coma: Status: Acute (6) Tricuspid regurgitation: Status: Acute (7) Abnormal liver diagnostic imaging: Status: Acute DS: Summary Hospital Course Hospital Course: from admission H+P, 11/04/22, by hospitalist Kendra Hinton MD: Patient is very obtunded, history is obtained mostly from EMR and ED physician. Patient with a history of IV drug use comes into the hospital with complaints of large abscess on the right lower back, she has a her when IV drug user, I am unable to wake her after she received Ativan pain control for abscess drainage in the ED. On arrival to the ED patient vitals are significant for temperature of 101.9 degrees, heart rate of 111, blood pressure stable Labs are significant for WBC count of 6.0, total bili of 3.0, direct bili of 1.8, AST of 54, ALT of 34, urine drug screen is positive for fentanyl, cocaine, Due to elevated LFT i obtained hepatitis panel which showed positive hepatitis-C Patient will be admitted for further management The patient was admitted to the medical-surgical floor on the hospitalist serv ice. Mental status improved. She was initially managed for gluteal abscess with cellulitis after undergoing I+D in the ED. Blood cultures negative. Wound cultures grew MRSA. Wound care with daily dressing changes with fluffed gauze and ABD pad recommended by surgeon. Prior medical records from [facility] reviewed given chronic back pain. 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 Treated with 6 wk of daptomycin. On that adm ission, transferred [place] [facility] [place] consideration of TV surgery but deemed not needed. 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 Neurosurgery deemed not needed. Relapsed on fentanyl and admitted to [facility] 01/21/21, then transferred [place] [facility] [place] Found to have MRSA bacteremia + empyema + septic ATN; started on ceftaroline + daptomycin. Transferred to [facility] [place] 02/18/23 for removal of mobile RV mass and debridement of TV 02/19 and Angiovac 02/20. Treated with daptomycin, then oral doxycycline. Found also to have actue displaced S1-2 sacral fracture with canal narrowing, L5-S1-S2 diskitis/osteomyelitis, septic arthritis of SI joints with effusion, sub-cm R piriformis intramuscular abscess, 2cm presacral collection likely abscesses. Abscesses too small to drain or too difficult to access. Underwent S1-S2 ALIF, L5-pelvic fusion, S1-S2 decompression 03/19/22. Due to these findings, she underwent pelvic CT with contrast and MRI L-spine here and a 3 cm presacral collection was demonstrated. This did not appear to be accessible by IR. There was concern for sacroiliac joint osteomyelitis. ID was consulted. Four weeks of PO linezolid were recommended. She will need outpatient follow-up with Surgery and Infectious Disease, and needs to establish primary care urgently. Imaging also demonstrated heterogeneous enhancement of liver and spleen, for which she will need outpatient MRI evaluation. She also needs curative treatment of HCV, for which she can follow-up with ID. She was seen by Addiction Medicine and methadone was continued; she will follow up with [facility] upon discharge for ongoing MAT. Time Spent with Patient Time attestation: Total time managing care of this patient today _45___ minutes. Discharge coordination time: Greater than 30 minutes Quality: Safe Use of Opioids Does Pt have an Active Cancer Diagnosis on the Problem List?: No Quality: Stroke Does the patient have a stroke diagnosis?: No Physical Exam Vital Signs: Vital Signs: Last Vital Signs Temp 97.8 F 11/06/22 07:29 Pulse 57 11/06/22 07:29 Resp 16 11/06/22 07:29 BP 128/70 11/06/22 07:29 Pulse Ox 96 11/06/22 07:29 O2 Del Method Room Air 11/06/22 07:29 BMI result Body Mass Index 25.3 Gen: NAD HEENT: sclera anicteric, moist mucus membranes Neck: supple Lungs: clear to auscultation bilaterally Heart: regular rate and rhythm, no murmurs Abd: soft, non-tender, non-distended Ext: no edema Skin: warm/well-perfused, drained gluteal abscess Neuro: alert and oriented x3, no focal weakness in extremities Psych: appropriate affect DS: Data Data Completed and Pending Completed studies during hospitalization [Text1]: Laboratory Results WBC 6.0 X10*3/uL (4.8-10.8) 11/04/22 05:47 RBC 4.40 X10*6/uL (4.20-5.50) 11/04/22 05:47 Hgb 11.3 g/dl (12.0-16.0) L 11/04/22 05:47 Hct 35.2 % (37.0-47.0) L 11/04/22 05:47 MCV 80.0 fL (80.0-98.0) 11/04/22 05:47 MCH 25.7 pg (27.0-33.0) L 11/04/22 05:47 MCHC 32.1 g/dl (31.0-35.0) 11/04/22 05:47 RDW 15.4 % (11.0-16.0) 11/04/22 05:47 Plt Count 179 X10*3/uL (160-400) 11/04/22 05:47 MPV 9.2 fL (9.4-12.3) L 11/04/22 05:47 Immature Gran % (Auto) 0.3 % (0.0-0.4) 11/04/22 05:47 Neut % (Auto) 72.3 % (45-73) 11/04/22 05:47 Lymph % (Auto) 15.7 % (20-40) L 11/04/22 05:47 Mccracken % (Auto) 10.7 % (2-11) 11/04/22 05:47 Eos % (Auto) 0.5 % (0-4) 11/04/22 05:47 Baso % (Auto) 0.5 % (0-2) 11/04/22 05:47 Lymph # (Auto) 0.9 X10*3/uL (1.2-4.9) L 11/04/22 05:47 Mccracken # (Auto) 0.6 X10*3/uL (0.1-1.2) 11/04/22 05:47 Eos # (Auto) 0.0 X10*3/uL (0.0-0.4) 11/04/22 05:47 Baso # (Auto) 0.0 X10*3/uL (0.0-0.2) 11/04/22 05:47 Abs Immat Gran (auto) 0.02 X10*3/uL (0.00-0.03) 11/04/22 05:47 Absolute Neuts (auto) 4.3 x10*3/uL (2.0-8.3) 11/04/22 05:47 Absolute Nucleated RBC 0.000 X10*3/uL (0.0-0.012) 11/04/22 05:47 Nucleated RBC % (auto) 0.0 /100WBC (0.0-0.2) 11/04/22 05:47 Sodium 142 mmol/L (135-145) 11/07/22 12:08 Potassium 3.7 mmol/L (3.3-5.1) 11/07/22 12:08 Chloride 112 mmol/L (96-108) H 11/07/22 12:08 Carbon Dioxide 21 mmol/L (22-29) L 11/07/22 12:08 Anion Gap 13 (12-20) 11/07/22 12:08 BUN 10 mg/dL (9-16) 11/07/22 12:08 Creatinine 0.74 mg/dL (0.5-1.4) 11/08/22 07:48 Estim Creat Clear Calc 104.4 11/08/22 07:48 Estimated GFR > 60 11/08/22 07:48 Random Glucose 118 mg/dL (60-115) H 11/07/22 12:08 Lactic Acid 2.8 mmol/L (0.5-2.0) H* 11/04/22 00:06 Lactic Acid F/U @ 2Hr 0.8 mmol/L (0.5-2.0) 11/04/22 02:41 Calcium 7.7 mg/dL (8.4-10.2) L D 11/07/22 12:08 Magnesium 2.0 mg/dL (1.6-2.6) 11/05/22 13:04 Total Bilirubin 1.5 mg/dL (0.0-1.0) H 11/05/22 13:04 Direct Bilirubin 1.8 mg/dL (0.0-0.5) H 11/04/22 00:06 AST 28 U/L (5-31) 11/05/22 13:04 ALT 23 U/L (0-31) 11/05/22 13:04 Alkaline Phosphatase 76 U/L (39-117) 11/05/22 13:04 C-Reactive Protein 4.01 mg/dL (< or = 0.50) H 11/07/22 12:08 Total Protein 6.8 g/dL (6.5-8.0) 11/05/22 13:04 Albumin 2.7 g/dL (3.5-5.0) L 11/05/22 13:04 Beta HCG, Quant < 2 mIU/mL 11/04/22 00:06 Urine Color Dark Yellow 11/04/22 04:09 Urine Appearance Clear 11/04/22 04:09 Urine pH 6.0 (5.0-9.0) 11/04/22 04:09 Ur Specific [place] 1.010 (1.005-1.025) 11/04/22 04:09 Urine Protein 30 (1+) mg/dL (Neg-Trace) H 11/04/22 04:09 Urine Glucose (UA) Negative mg/dL (Negative) 11/04/22 04:09 Urine Ketones Negative mg/dL (Negative) 11/04/22 04:09 Urine Blood Small (1+) (Negative) H 11/04/22 04:09 Urine Nitrite Negative (Negative) 11/04/22 04:09 Ur Leukocyte Esterase Negative (Negative) 11/04/22 04:09 Urine RBC 3-5 /HPF (0-2) H 11/04/22 04:09 Urine WBC 0-5 /HPF (0-5) 11/04/22 04:09 Ur Squamous Epith Cells 0-2 /HPF (0-2) 11/04/22 04:09 Calcium Oxalate Crystal Present 11/04/22 04:09 Urine Bacteria Trace (None Seen) 11/04/22 04:09 Hyaline Casts 0-2 /LPF (0-2) 11/04/22 04:09 Vancomycin Trough 11.1 mcg/mL (10.0-20.0) 11/08/22 12:46 Random Vancomycin 17.4 mcg/mL (15-20) 11/07/22 12:08 Urine Opiates Screen Not Detected (Not Detect) 11/04/22 04:09 Urine Fentanyl Screen POSITIVE (Not Detect) H 11/04/22 04:09 Ur Barbiturates Screen Not Detected (Not Detect) 11/04/22 04:09 Ur Phencyclidine Scrn Not Detected (Not Detect) 11/04/22 04:09 Ur Amphetamines Screen Not Detected (Not Detect) 11/04/22 04:09 U Benzodiazepines Scrn Not Detected (Not Detect) 11/04/22 04:09 Urine Cocaine Screen POSITIVE (Not Detect) H 11/04/22 04:09 U Marijuana (THC) Screen Not Detected (Not Detect) 11/04/22 04:09 COVID-19 (JOCELINE) Negative (Negative) 11/04/22 01:55 COVID-19 Clin Com See Note 11/04/22 01:55 Hepatitis A IgM Ab Nonreactive (Nonreactive) 11/04/22 03:13 Hep Bs Antigen Negative (Negative) 11/04/22 03:13 Hep Bs Antibody NONREACTIVE (Nonreactive) 11/04/22 03:13 Hep B Core Total Ab Nonreactive (Nonreactive) 11/04/22 03:13 Hepatitis C Ab (EIA) Reactive (Nonreactive) H 11/04/22 03:13 Hep C Viral Load 4080 IU/mL (NOT DETECTED) H 11/05/22 13:04 Hep C Viral Load Log 3.61 Log IU/mL (NOT DETECTED) H 11/05/22 13:04 HIV 1&2 Ab/P24 Ag 4thGn Nonreactive (Nonreactive) 11/05/22 13:04 Impressions Chest X-Ray 11/04/22 00:14 IMPRESSION: No active cardiopulmonary disease. Abdomen Ultrasound 11/04/22 08:00 IMPRESSION: Heterogeneous parenchymal appearance of the inferior right lobe with scattered areas of increased echogenicity possibly representing discrete lesions. The largest echogenic focus measures 1.6 x 1.0 x 0.9 cm. Further characterization with MRI abdomen is recommended. Anterior subserosal fibroid 2. 3.5 x 4[address] 11/04/22 17:02 IMPRESSION: Heterogeneous enhancement of the liver and spleen particularly the posterior segment of the right lobe of the liver and the inferior spleen. Discrete lesion not appreciated. Trace ascites around the liver and spleen. Upper normal-size retroperitoneal lymph nodes. Question right heart compromise. Some of the liver changes may be vascular. Follow-up liver MRI recommended. Upper normal-size retroperitoneal lymph nodes. Diverticulosis. Extensive postsurgical changes to the lower spine and sacrum. 1 cm anterior subluxation L5 with respect. Lucency adjacent to the bilateral L4 and S1 screws questionable for loosening. Question soft tissue collection over the right buttock posterior to the right sacroiliac joint. There is also question of abnormal soft tissue anterior to the sacrum on the most inferior images. Pelvic CT should be considered. Findings will be communicated by the [place] work flow animal geneticist. Fleischner guidelines were followed. Pelvis CT 11/06/22 11:52 IMPRESSION: 2.5 x 4.3 cm low-attenuation soft tissue anterior to the L5-S1 disc space and slightly to the left of midline. Differential would include infection/abscess related to the bone and peritoneal or adnexal lesion. Abnormal fluid, soft tissue, small amount of air and high attenuation material in the right buttock extending to the right gluteus da muscle and probably extending to the right posterior sacroiliac joint. The right sacroiliac joint appears widened compared to the left side. Appearance is worrisome for infection as well. Diverticulosis of the colon. Small amount of ascites. Diffuse retroperitoneal and bilateral inguinal lymphadenopathy. Extensive postsurgical changes to the lower lumbar sacral spine. Pelvic/Transvag US 11/06/22 17:47 IMPRESSION: Limited exam. Ovaries not seen. Small amount of fluid in the pelvis. Lumbar Spine MRI 11/06/22 20:59 IMPRESSION: Partially imaged ill-defined multiseptated/multiloculated masslike lesion anterior to the L5-S1 disc space, centered in the left presacral tissues with surrounding patchy inflammatory changes could represent phlegmon/abscess however peritoneal adnexal lesion cannot be definitively excluded. Additional right gluteal soft tissues masslike lesion with peripheral enhancement extending to the subdermal tissues likely representing a collection of fluid and packing material however superimposed infectious process cannot be excluded. T2 hyperintensity involving the right gluteus da is likely reactive myositis. Sequelae of L5-S1 anterior spinal fusion and posterior spinal fusion spanning L4 through the bilateral sacroiliac joints. Discharge Plan Discharge Anticipated Discharge Date/Time: 11/06/22 10:24 Patient Disposition: Home, Self-Care Discharge Diagnosis: abscess/cellulitis, likely pelvic osteomyelitis, opioid use disorder, hepatitis C, abnormal liver imaging Ref[place]: [facility] [place] [facility] [Provider Group] - 1 Week Monica Hammond MD [Physician] - 2 Weeks Mau Alvarado MD [Physician] - 1 Week Physician,None [Primary Care Provider] - 1 Week Discharge Medications: New methocarbamol 500 mg Tablet 500 mg PO BID Qty: 1 0RF clonidine HCl 0.1 mg Tablet 0.1 mg PO TID PRN (Reason: Anxiety/Restlessness) Qty: 1 0RF Protocol: Hold for SBP< HOLD for SBP < : 90 gabapentin 300 mg Capsule 300 mg PO BID@1300,2100 Qty: 1 0RF methadone [Methadose] 10 mg/mL Concentrate 30 mg PO DAILY Qty: 1 0RF Rx Instructions: Partial Fill upon patient request. linezolid 600 mg Tablet 600 mg PO Q12H Qty: 56 0RF oxycodone 5 mg Tablet 10 mg PO Q4H PRN (Reason: Pain, Severe (Pain Scale 7-10)) Qty: 18 0RF Rx Instructions: Partial Fill upon patient request. Continued albuterol sulfate 90 mcg/actuation HFA aerosol inhaler 2 puff inhalation Q4-6H PRN (Reason: shortness of breath or wheezing) Qty: 8.5 0RF furosemide 40 mg tablet 40 mg PO DAILY buspirone 5 mg tablet 5 mg PO TID ondansetron HCl 4 mg tablet 4 mg PO Q8H PRN (Reason: Nausea) trazodone 100 mg tablet 100 mg PO BEDTIME spironolactone 50 mg tablet 50 mg PO DAILY escitalopram oxalate 10 mg tablet 10 mg PO DAILY Discontinued methocarbamol 500 mg tablet 500 mg PO TID clonidine HCl 0.1 mg tablet 0.1 mg PO TID gabapentin 300 mg capsule 300 mg PO TID Discharge Orders: Discharge Order (Routine); Ordered 11/09/22 Ordered By: Jaehyun Joe Diet: Advance to usual diet Activity on Discharge: As tolerated Stand Alone Forms: Patient Portal Discharge page Care Plan Goals: cure of abscess/cellulitis + osteomyelitis abstinence from drugs of abuse cure of hepatitis C Health Concerns: abscess/cellulitis + osteomyelitis opioid use disorder hepatitis C abnormal liver imaging Plan of Treatment: take linezolid 600 mg twice daily for 28 days daily dressing changes with fluffed gauze and ABD pad [place] [facility] [place] 1 week follow up with [facility] [place] Infectious Disease in 2 weeks for management of osteomyelitis and hepatitis C outpatient MRI to be ordered by Primary Care to assess liver and spleen abnormalities Establish primary care as soon as possible. Return to the hospital if you experience recurrent or worsening symptoms. Assessment: See Discharge Summary.
[2022-11-06] MEDS: iohexoL 350 MG/ML 100 ML INFUS..BTL 85 ML IV (11:58)
[2022-11-06 12:52] LABS: Vancomycin Random 18.4 mcg/mL (15-20)
[2022-11-06] MEDS: Gabapentin 300 MG CAPSULE PO ×2 (12:54→21:14)
--- NOTE | 2022-11-06 12:58 | HE.PHANOTE ---
RE: VANCO DOSING LEVEL YESTERDAY (9.8) WAS LOW SO DOSE INCREASED FROM 1000 Q12 TO 1250 Q12. LEVEL TODAY ALMOST DOUBLE THAT AT 18.4 AFTER ONLY 2 DOSES OF 1250 MG SO DECREASED DOSE BACK TO 1000 Q12 SINCE SHE IS ALREADY IN THERAPEUTIC RANGE. WILL RECHECK LEVEL ON 11/07 @1200 TO ENSURE SHE STAYS THERAPEUTIC AND DOESN'T HAVE ANY OTHER DRASTIC CHANGES. SCR HAS REMAINED STABLE.
[2022-11-06] MEDS: vancomycin HCL 1,000 MG in 0.9 % Sodium Chloride 250 ML 270 MG IV (14:39)
--- NOTE | 2022-11-06 15:07 | HO.PM.IMPN ---
Subjective Subjective Date of Service: 11/06/22 Interval History: R buttock pain and lumbar pain has been present for months. Did not inject into the buttocks. no fever. Denies vaginal discharge. Review of Systems Review of Systems: Yes all other systems are reviewed and are negative Physical Exam Vital Signs: Vital Signs: Last Vital Signs Temp 97.8 F 11/06/22 07:29 Pulse 57 11/06/22 07:29 Resp 16 11/06/22 07:29 BP 128/70 11/06/22 07:29 Pulse Ox 96 11/06/22 07:29 O2 Del Method Room Air 11/06/22 07:29 BMI result Body Mass Index 25.3 Gen: NAD HEENT: sclera anicteric, moist mucus membranes Neck: supple Lungs: clear to auscultation bilaterally Heart: regular rate and rhythm, no murmurs Abd: soft, non-tender, non-distended Ext: no edema Skin: warm/well-perfused, drained gluteal abscess Neuro: alert and oriented x3, no focal findings Psych: appropriate affect Objective Data Active Medications Acetaminophen (Acetaminophen 325 Mg Tablet) 650 mg PO Q6H PRN PRN Reason: Pain, Mild (Pain Scale 1-3) Last Admin: 11/06/22 08:54 Dose: 650 mg Documented By: AMOS Al Hydroxide/Mg Hydroxide (Magnesium Hydrox/Alum Hydrox 30 Ml Oral.Susp) 30 ml PO Q4H PRN PRN Reason: heart burn Last Admin: 11/05/22 16:28 Dose: 30 ml Documented By: SANDYBBAJ Albuterol Sulfate (Albuterol Sulfate 90 Mcg 8 Gm Inhaler) 2 puff INHALE Q4H PRN PRN Reason: shortness of breath or wheezing Buspirone HCl (Buspirone Hcl 5 Mg Tablet) 5 mg PO TID DONALD Last Admin: 11/06/22 14:39 Dose: 5 mg Documented By: AMOS Clonidine HCl (Clonidine Hcl 0.1 Mg Tablet) 0.1 mg PO TID PRN; Protocol PRN Reason: anxiety/restlessness Last Admin: 11/06/22 08:54 Dose: 0.1 mg Documented By: AMOS Docusate Sodium (Docusate Sodium 100 Mg Capsule) 100 mg PO DAILY PRN PRN Reason: Constipation Enoxaparin Sodium (Enoxaparin Sodium 40 Mg/0.4 Ml Syringe) 40 mg SUBCUT Q24H [facility] Last Admin: 11/06/22 08:42 Dose: Not Given Documented By: AMOS Non-Admin Reason: Patient Refused Escitalopram Oxalate (Escitalopram Oxalate 10 Mg Tablet) 10 mg PO DAILY [facility] Last Admin: 11/06/22 08:54 Dose: 10 mg Documented By: [email or web address].COTEMA Furosemide (Furosemide 40 Mg Tablet) 40 mg PO DAILY [facility]; Protocol Last Admin: 11/06/22 08:55 Dose: 40 mg Documented By: COTEMA Gabapentin (Gabapentin 300 Mg Capsule) 300 mg PO BID@1300,2100 [facility] Last Admin: 11/06/22 12:54 Dose: 300 mg Documented By: COTEMA Piperacillin Sod/Tazobactam (Sod 3.375 gm/ Sodium Chloride) 50 mls @ 100 mls/hr IV Q6H [facility] Last Infusion: 11/06/22 11:42 Dose: Infused Documented By: COTEMA Vancomycin HCl 1,000 mg/ (Sodium Chloride) 270 mls @ 270 mls/hr IV Q12H [facility] Last Admin: 11/06/22 14:39 Dose: 270 mls/hr Documented By: COTEMA Methadone HCl (Methadone Hcl 20 Mg/2 Ml Oral.Conc) 30 mg PO DAILY [facility] Last Admin: 11/06/22 08:53 Dose: 30 mg Documented By: COTEMA Methocarbamol (Methocarbamol 500 Mg Tablet) 500 mg PO BID [facility] Last Admin: 11/06/22 08:55 Dose: 500 mg Documented By: COTEMA Ondansetron HCl (Ondansetron Hcl 4 Mg/2 Ml Vial) 4 mg IVPUSH Q8H PRN PRN Reason: Nausea and Vomiting Pharmacy Consult (Consult Rx Vancomycin Dosing) 1 each MISCELLANE DAILY PRN PRN Reason: Consult order Sodium Chloride (0.9 % Sodium Chloride Flush 3 Ml Syringe) 3 ml IVFLUSH QSHIFT [facility] Last Admin: 11/06/22 14:39 Dose: 3 ml Documented By: COTEMA Spironolactone (Spironolactone 25 Mg Tablet) 50 mg PO DAILY [facility]; Protocol Last Admin: 11/06/22 08:54 Dose: 50 mg Documented By: COTEMA Trazodone HCl (Trazodone Hcl 100 Mg Tablet) 100 mg PO BEDTIME DONALD Last Admin: 11/05/22 19:44 Dose: 100 mg Documented By: GREGORY Labs 11/04/22 05:47 11/06/22 07:48 Labs: Laboratory Results - last 24 hr 11/05/22 11/06/22 11/06/22 13:04 07:48 12:15 Anion Gap 12 Estim Creat Clear Calc 105.8 Estimated GFR > 60 Random Glucose 78 Calcium 8.2 L Random Vancomycin 18.4 HIV 1&2 Ab/P24 Ag 4thGn Nonreactive Microbiology Microbiology Results: Microbiology 11/04/22 02:24 Gram Stain - Final Abscess Rectal Routine Culture - Preliminary Staphylococcus aureus 11/04/22 00:06 Blood Culture - Preliminary Blood - Venous No growth after 48 hours. 11/04/22 00:06 Blood Culture - Preliminary Blood - Venous No growth after 48 hours. Assessment and Plan (1) IV drug user: Status: Acute (2) Abscess: Status: Acute Assessment and Plan: Impressions Pelvis CT 11/06/22 11:52 IMPRESSION: 2.5 x 4.3 cm low-attenuation soft tissue anterior to the L5-S1 disc space and slightly to the left of midline. Differential would include infection/abscess related to the bone and peritoneal or adnexal lesion. Abnormal fluid, soft tissue, small amount of air and high attenuation material in the right buttock extending to the right gluteus da muscle and probably extending to the right posterior sacroiliac joint. The right sacroiliac joint appears widened compared to the left side. Appearance is worrisome for infection as well. Diverticulosis of the colon. Small amount of ascites. Diffuse retroperitoneal and bilateral inguinal lymphadenopathy. Extensive postsurgical changes to the lower lumbar sacral spine. Plan d3 32yo F with hx injection drug abuse presenting with large gluteal abscess now with concern for extension into R SI joint; also possibility of paraspinal vs. periotoneal vs. adnexal abscess gluteal abscess/cellulitis concern of extension to SI joint possible paraspinal vs peritoneal vs adnexal abscess - s/p I+D in ED, BCx negative, wound Cx growing Staphylococcus aureus with susceptibilities pending - MRI L-spine, pelvic US - ID consult - notify surgery, may need Ortho consult as well - vanc + pip-deepali d3 hypoK - repleted heterogeneous enhancement of liver and spleen - outpt MRI OUD cocaine abuse - Addiction Med consulted, resumed methadone HCV - Ab positive, viral load pending. screen for HIV negative mood disorder - continue buspirone, clonidine, gabapentin, trazodone, escitalopram VTE ppx - LMWH dispo - eventual home In my clinical judgment, the patient requires continued hospitalization for the following reasons: IV ABX Time Spent With Patient Time: Total time managing care of this patient today __45__ minutes. Quality Stroke Does the patient have a stroke diagnosis?: No VTE Prior VTE?: No VTE Risk Level:: Medical - moderate - high VTE Device Contraindication: Treatment Not Indicated VTE Drug Contraindication: N/A - Med Ordered
[2022-11-06 15:21] VITALS: BP 122/80; PULSE 55; RESP 16; TEMP 36.8; O2SAT 98
[2022-11-06] MEDS: oxyCODONE HCl Immed Release 5 MG TABLET 10 MG PO ×2 (16:47→21:15)
--- NOTE | 2022-11-06 16:52 | MHC.RECOVRN ---
T/w in to assess pt needs, and touch base. Pt reporting 7/10 pain to her buttocks and low back, pt presently on her side curled up in bed. Pt tearful at this time. When asked about withdrawal symptoms pt reporting chills, restlessness,aches, and anxiety. Pt requesting her PRN clonidine. Kari MORELAND aware and ordering an additional dose of methadone for pt. Pt's RN aware of pt pain/anxiety and to medicate pt.
[2022-11-06] MEDS: Albuterol Sulfate 90 MCG 8 GM INHALER 2 PUFF INHALE (17:08)
[2022-11-06 17:24] LABS: HCV Log PCR 3.61 Log IU/mL (NOT DETECTED); HepC Viral Load 4080 IU/mL (NOT DETECTED)
[2022-11-06] MEDS: methADONE HCl 20 MG/2 ML ORAL.CONC 10 MG PO (18:15)
[2022-11-06] MEDS: gadobutroL 7.5 ML VIAL IVPUSH (20:50)
[2022-11-06] MEDS: traZODone HCL 100 MG TABLET PO (21:14)
[2022-11-07] MEDS: vancomycin HCL 1,000 MG in 0.9 % Sodium Chloride 250 ML 270 MG IV ×2 (02:54→14:01)
[2022-11-07] MEDS: Piperacillin Sodium/Tazobactam 3.375 GM in 0.9 % Sodium Chloride 50 ML IV ×4 (03:56→22:53)
[2022-11-07 04:00] VITALS: BP 115/80; PULSE 67; RESP 18; TEMP 35.9; O2SAT 96
[2022-11-07 07:09] VITALS: BP 117/82; PULSE 68; RESP 18; TEMP 36.1; O2SAT 98
[2022-11-07] MEDS: methADONE HCl 20 MG/2 ML ORAL.CONC 45 MG PO (07:09)
[2022-11-07] MEDS: Spironolactone 25 MG TABLET 50 MG PO (07:09)
[2022-11-07] MEDS: cloNIDine HCL 0.1 MG TABLET PO ×3 (07:10→19:48)
[2022-11-07] MEDS: oxyCODONE HCl Immed Release 5 MG TABLET 10 MG PO ×4 (07:10→19:47)
[2022-11-07] MEDS: Escitalopram Oxalate 10 MG TABLET PO (07:10)
[2022-11-07] MEDS: Furosemide 40 MG TABLET PO (07:10)
[2022-11-07] MEDS: Acetaminophen 325 MG TABLET 650 MG PO ×2 (07:10→15:43)
[2022-11-07] MEDS: methocarbamoL 500 MG TABLET PO ×2 (07:11→19:47)
[2022-11-07] MEDS: busPIRone HCl 5 MG TABLET PO ×3 (07:11→19:48)
[2022-11-07] MEDS: 0.9 % Sodium Chloride Flush 3 ML SYRINGE IVFLUSH ×2 (07:11→15:45)
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
[2022-11-07] MEDS: Gabapentin 300 MG CAPSULE PO ×2 (11:41→19:48)
[2022-11-07 12:32] LABS: Vancomycin Random 17.4 mcg/mL (15-20)
[2022-11-07 12:46] LABS: Anion Gap 13 (12-20); Calcium 7.7 mg/dL (8.4-10.2); Carbon Dioxide 21 mmol/L (22-29); Chloride 112 mmol/L (96-108); Potassium 3.7 mmol/L (3.3-5.1); Sodium 142 mmol/L (135-145)
[2022-11-07 12:49] LABS: Blood Urea Nitrogen 10 mg/dL (9-16); C Reactive Protein 4.01 mg/dL (< or = 0.50); Estimated Glomerular Filt Rate > 60; Glucose Random 118 mg/dL (60-115)
--- NOTE | 2022-11-07 13:35 | HO.PM.IMPN ---
Subjective Subjective Date of Service: 11/07/22 Interval History: R buttocks pain, chronic low back pain no fever Review of Systems Review of Systems: Yes all other systems are reviewed and are negative Physical Exam Vital Signs: Vital Signs: Last Vital Signs Temp 96.9 F 11/07/22 07:09 Pulse 68 11/07/22 07:09 Resp 18 11/07/22 07:09 BP 117/82 11/07/22 07:09 Pulse Ox 98 11/07/22 07:09 O2 Del Method Room Air 11/07/22 07:09 BMI result Body Mass Index 25.3 Gen: NAD HEENT: sclera anicteric, moist mucus membranes Neck: supple Lungs: clear to auscultation bilaterally Heart: regular rate and rhythm, no murmurs Abd: soft, non-tender, non-distended Ext: no edema Skin: warm/well-perfused, drained gluteal abscess Neuro: alert and oriented x3, no focal weakness in extremities Psych: appropriate affect Objective Data Active Medications Acetaminophen (Acetaminophen 325 Mg Tablet) 650 mg PO Q6H PRN PRN Reason: Pain, Mild (Pain Scale 1-3) Last Admin: 11/07/22 07:10 Dose: 650 mg Documented By: AMOS Al Hydroxide/Mg Hydroxide (Magnesium Hydrox/Alum Hydrox 30 Ml Oral.Susp) 30 ml PO Q4H PRN PRN Reason: heart burn Last Admin: 11/05/22 16:28 Dose: 30 ml Documented By: PADDY Albuterol Sulfate (Albuterol Sulfate 90 Mcg 8 Gm Inhaler) 2 puff INHALE Q4H PRN PRN Reason: shortness of breath or wheezing Last Admin: 11/06/22 17:08 Dose: 2 puff Documented By: AMOS Buspirone HCl (Buspirone Hcl 5 Mg Tablet) 5 mg PO TID DONALD Last Admin: 11/07/22 07:11 Dose: 5 mg Documented By: AMOS Clonidine HCl (Clonidine Hcl 0.1 Mg Tablet) 0.1 mg PO TID PRN; Protocol PRN Reason: anxiety/restlessness Last Admin: 11/07/22 07:10 Dose: 0.1 mg Documented By: AMOS Docusate Sodium (Docusate Sodium 100 Mg Capsule) 100 mg PO DAILY PRN PRN Reason: Constipation Enoxaparin Sodium (Enoxaparin Sodium 40 Mg/0.4 Ml Syringe) 40 mg SUBCUT Q24H [facility] Last Admin: 11/07/22 07:03 Dose: Not Given Documented By: AMIRAEMA Non-Admin Reason: Patient Refused Escitalopram Oxalate (Escitalopram Oxalate 10 Mg Tablet) 10 mg PO DAILY [facility] Last Admin: 11/07/22 07:10 Dose: 10 mg Documented By: COTEMA Furosemide (Furosemide 40 Mg Tablet) 40 mg PO DAILY [facility]; Protocol Last Admin: 11/07/22 07:10 Dose: 40 mg Documented By: COTEMA Gabapentin (Gabapentin 300 Mg Capsule) 300 mg PO BID@1300,2100 [facility] Last Admin: 11/07/22 11:41 Dose: 300 mg Documented By: COTEMA Piperacillin Sod/Tazobactam (Sod 3.375 gm/ Sodium Chloride) 50 mls @ 100 mls/hr IV Q6H [facility] Last Infusion: 11/07/22 12:15 Dose: Infused Documented By: AMOS Vancomycin HCl 1,000 mg/ (Sodium Chloride) 270 mls @ 270 mls/hr IV Q12H [facility] Last Infusion: 11/07/22 03:57 Dose: Infused Documented By: GREGORY Methadone HCl (Methadone Hcl 20 Mg/2 Ml Oral.Conc) 45 mg PO DAILY [facility] Last Admin: 11/07/22 07:09 Dose: 45 mg Documented By: AMOS Methocarbamol (Methocarbamol 500 Mg Tablet) 500 mg PO BID [facility] Last Admin: 11/07/22 07:11 Dose: 500 mg Documented By: AMOS Ondansetron HCl (Ondansetron Hcl 4 Mg/2 Ml Vial) 4 mg IVPUSH Q8H PRN PRN Reason: Nausea and Vomiting Oxycodone HCl (Oxycodone Hcl Immed Release 5 Mg Tablet) 10 mg PO Q4H PRN PRN Reason: Pain, Severe (Pain Scale 7-10) Last Admin: 11/07/22 11:41 Dose: 10 mg Documented By: AMOS Pharmacy Consult (Consult Rx Vancomycin Dosing) 1 each MISCELLANE DAILY PRN PRN Reason: Consult order Sodium Chloride (0.9 % Sodium Chloride Flush 3 Ml Syringe) 3 ml IVFLUSH QSHIFT [facility] Last Admin: 11/07/22 07:11 Dose: 3 ml Documented By: COTEMA Spironolactone (Spironolactone 25 Mg Tablet) 50 mg PO DAILY [facility]; Protocol Last Admin: 11/07/22 07:09 Dose: 50 mg Documented By: COTEMA Trazodone HCl (Trazodone Hcl 100 Mg Tablet) 100 mg PO BEDTIME [facility] Last Admin: 11/06/22 21:14 Dose: 100 mg Documented By: GREGORY Labs 11/04/22 05:47 11/07/22 12:08 Labs: Laboratory Results - last 24 hr 11/05/22 11/07/22 13:04 12:08 Anion Gap 13 Estim Creat Clear Calc 103.0 Estimated GFR > 60 Random Glucose 118 H Calcium 7.7 L D C-Reactive Protein 4.01 H Random Vancomycin 17.4 Hep C Viral Load 4080 H Hep C Viral Load Log 3.[address] 11/06/22 11:52 IMPRESSION: 2.5 x 4.3 cm low-attenuation soft tissue anterior to the L5-S1 disc space and slightly to the left of midline. Differential would include infection/abscess related to the bone and peritoneal or adnexal lesion. Abnormal fluid, soft tissue, small amount of air and high attenuation material in the right buttock extending to the right gluteus da muscle and probably extending to the right posterior sacroiliac joint. The right sacroiliac joint appears widened compared to the left side. Appearance is worrisome for infection as well. Diverticulosis of the colon. Small amount of ascites. Diffuse retroperitoneal and bilateral inguinal lymphadenopathy. Extensive postsurgical changes to the lower lumbar sacral spine. Pelvic/Transvag US 11/06/22 17:47 IMPRESSION: Limited exam. Ovaries not seen. Small amount of fluid in the pelvis. Microbiology Microbiology Results: Microbiology 11/04/22 02:24 Gram Stain - Final Abscess Rectal Routine Culture - Final Methicillin Res Staph Aureus Assessment and Plan (1) IV drug user: Status: Acute (2) Abscess: Status: Acute Plan d4 32yo F with hx injection drug abuse presenting with large gluteal abscess now with concern for extension into R SI joint; also possibility of paraspinal vs. periotoneal vs. 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 Treated with 6 wk of daptomycin. On that admission, transferred to [facility] for consideration of TV surgery but deemed not needed. 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 Neurosurgery deemed not needed. Relapsed on fentanyl and admitted to [place] 01/21/21, then transferred to [facility]. Found to have MRSA bacteremia + empyema + septic ATN; started on ceftaroline + daptomycin. Transferred to [facility] 02/18/23 for removal of mobile RV mass and debridement of TV 02/19 and Angiovac 02/20. Treated with daptomycin, then oral doxycycline. Found also to have actue displaced S1-2 sacral fracture with canal narrowing, L5-S1-S2 diskitis/osteomyelitis, septic arthritis of SI joints with effusion, sub-cm R piriformis intramuscular abscess, 2cm presacral collection likely abscesses. Abscesses too small to drain or too difficult to access. Underwent S1-S2 ALIF, L5-pelvic fusion, S1-S2 decompression 03/19/22. hypoK - repleted heterogeneous enhancement of liver and spleen - outpt MRI OUD cocaine abuse - Addiction Med consulted, resumed methadone HCV, chronic - outpt treatment - HIV negative mood disorder - continue buspirone, clonidine, gabapentin, trazodone, escitalopram VTE ppx - LMWH dispo - eventual home In my clinical judgment, the patient requires continued hospitalization for the following reasons: IV ABX Time Spent With Patient Time: Total time managing care of this patient today __50__ minutes including review of [facility] records Quality Stroke Does the patient have a stroke diagnosis?: No VTE Prior VTE?: No VTE Risk Level:: Medical - moderate - high VTE Device Contraindication: Treatment Not Indicated VTE Drug Contraindication: N/A - Med Ordered
[2022-11-07 15:15] VITALS: BP 105/55; PULSE 63; RESP 18; TEMP 36; O2SAT 97
--- NOTE | 2022-11-07 16:14 | MHC.RECOVRN ---
This curriculum writer met with patient, patient admitted for Abscess. Pt was sitting up on edge of bed. Pt reports doing well on MTD dose. Pt states feels stable. Pt wishes to continue dosing with [facility] upon d/c. Reviewed findings with Provider.
[2022-11-07 19:28] VITALS: BP 110/77; PULSE 62; RESP 20; TEMP 36; O2SAT 97
[2022-11-07] MEDS: traZODone HCL 100 MG TABLET PO (19:48)
[2022-11-08] MEDS: vancomycin HCL 1,000 MG in 0.9 % Sodium Chloride 250 ML 270 MG IV (00:33)
[2022-11-08] MEDS: oxyCODONE HCl Immed Release 5 MG TABLET 10 MG PO ×5 (00:33→19:40)
[2022-11-08] MEDS: Acetaminophen 325 MG TABLET 650 MG PO ×3 (00:33→14:50)
[2022-11-08 03:23] VITALS: BP 112/60; PULSE 53; RESP 16; TEMP 36; O2SAT 95
[2022-11-08] MEDS: Piperacillin Sodium/Tazobactam 3.375 GM in 0.9 % Sodium Chloride 50 ML IV ×4 (04:55→22:29)
[2022-11-08] MEDS: cloNIDine HCL 0.1 MG TABLET PO ×3 (07:25→19:41)
[2022-11-08] MEDS: Furosemide 40 MG TABLET PO (07:25)
[2022-11-08] MEDS: methocarbamoL 500 MG TABLET PO ×2 (07:25→19:32)
[2022-11-08] MEDS: Spironolactone 25 MG TABLET 50 MG PO (07:25)
[2022-11-08] MEDS: busPIRone HCl 5 MG TABLET PO ×3 (07:25→19:31)
[2022-11-08] MEDS: Escitalopram Oxalate 10 MG TABLET PO (07:25)
[2022-11-08] MEDS: methADONE HCl 20 MG/2 ML ORAL.CONC 45 MG PO (07:26)
[2022-11-08] MEDS: 0.9 % Sodium Chloride Flush 3 ML SYRINGE IVFLUSH ×2 (07:30→19:32)
[2022-11-08 07:32] VITALS: BP 136/60; PULSE 72; RESP 17; TEMP 36.4; O2SAT 97
[2022-11-08 08:27] LABS: Creatinine Clr Calc Pharmacy 104.4; Estimated Glomerular Filt Rate > 60
[2022-11-08 09:33] VITALS: BP 136/60; PULSE 72; O2SAT 97
--- NOTE | 2022-11-08 12:57 | MHC.CM.PN ---
per rounds pt will have an id consult no plans for dc
[2022-11-08 13:29] LABS: Vancomycin Trough 11.1 mcg/mL (10.0-20.0)
--- NOTE | 2022-11-08 13:42 | HE.PHANOTE ---
RE VANCO DOSING RENAL FUNCTION STABLE BUT TROUGH AND AUC SLIGHTLY SUBTHERAPEUTIC. INCREASE DOSE TO 1250 Q12 AND RECHECK TROUGH 11/09 @1300
[2022-11-08] MEDS: Gabapentin 300 MG CAPSULE PO ×2 (14:50→19:32)
[2022-11-08] MEDS: vancomycin HCL 1,250 MG in 0.9 % Sodium Chloride 250 ML 166.67 MG IV (14:51)
--- NOTE | 2022-11-08 15:19 | HO.PM.IMPN ---
Subjective Subjective Date of Service: 11/08/22 Interval History: c/o R buttocks and back pain no fever Review of Systems Review of Systems: Yes all other systems are reviewed and are negative Physical Exam Vital Signs: Vital Signs: Last Vital Signs Temp 97.5 F 11/08/22 07:32 Pulse 72 11/08/22 09:33 Resp 17 11/08/22 07:32 BP 136/60 11/08/22 09:33 Pulse Ox 97 11/08/22 09:33 O2 Del Method Room Air 11/08/22 07:32 BMI result Body Mass Index 25.3 Gen: NAD HEENT: sclera anicteric, moist mucus membranes Neck: supple Lungs: clear to auscultation bilaterally Heart: regular rate and rhythm, no murmurs Abd: soft, non-tender, non-distended Ext: no edema Skin: warm/well-perfused, drained gluteal abscess Neuro: alert and oriented x3, no focal weakness in extremities Psych: appropriate affect Objective Data Active Medications Acetaminophen (Acetaminophen 325 Mg Tablet) 650 mg PO Q6H PRN PRN Reason: Pain, Mild (Pain Scale 1-3) Last Admin: 11/08/22 14:50 Dose: 650 mg Documented By: AMOS Al Hydroxide/Mg Hydroxide (Magnesium Hydrox/Alum Hydrox 30 Ml Oral.Susp) 30 ml PO Q4H PRN PRN Reason: heart burn Last Admin: 11/05/22 16:28 Dose: 30 ml Documented By: PADDY Albuterol Sulfate (Albuterol Sulfate 90 Mcg 8 Gm Inhaler) 2 puff INHALE Q4H PRN PRN Reason: shortness of breath or wheezing Last Admin: 11/06/22 17:08 Dose: 2 puff Documented By: AMOS Buspirone HCl (Buspirone Hcl 5 Mg Tablet) 5 mg PO TID DONALD Last Admin: 11/08/22 14:50 Dose: 5 mg Documented By: AMOS Clonidine HCl (Clonidine Hcl 0.1 Mg Tablet) 0.1 mg PO TID PRN; Protocol PRN Reason: anxiety/restlessness Last Admin: 11/08/22 14:50 Dose: 0.1 mg Documented By: AMOS Docusate Sodium (Docusate Sodium 100 Mg Capsule) 100 mg PO DAILY PRN PRN Reason: Constipation Enoxaparin Sodium (Enoxaparin Sodium 40 Mg/0.4 Ml Syringe) 40 mg SUBCUT Q24H [facility] Last Admin: 11/08/22 07:11 Dose: Not Given Documented By: COTEMA Non-Admin Reason: Patient Refused Escitalopram Oxalate (Escitalopram Oxalate 10 Mg Tablet) 10 mg PO DAILY [facility] Last Admin: 11/08/22 07:25 Dose: 10 mg Documented By: COTEMA Furosemide (Furosemide 40 Mg Tablet) 40 mg PO DAILY [facility]; Protocol Last Admin: 11/08/22 07:25 Dose: 40 mg Documented By: COTEMA Gabapentin (Gabapentin 300 Mg Capsule) 300 mg PO BID@1300,2100 [facility] Last Admin: 11/08/22 14:50 Dose: 300 mg Documented By: COTEMA Piperacillin Sod/Tazobactam (Sod 3.375 gm/ Sodium Chloride) 50 mls @ 100 mls/hr IV Q6H [facility] Last Infusion: 11/08/22 11:42 Dose: Infused Documented By: COTEMA Vancomycin HCl 1,250 mg/ (Sodium Chloride) 250 mls @ 166.667 mls/hr IV Q12H [facility] Last Admin: 11/08/22 14:51 Dose: 166.67 mls/hr Documented By: COTEMA Methadone HCl (Methadone Hcl 20 Mg/2 Ml Oral.Conc) 45 mg PO DAILY [facility] Last Admin: 11/08/22 07:26 Dose: 45 mg Documented By: COTEMA Methocarbamol (Methocarbamol 500 Mg Tablet) 500 mg PO BID [facility] Last Admin: 11/08/22 07:25 Dose: 500 mg Documented By: COTEMA Ondansetron HCl (Ondansetron Hcl 4 Mg/2 Ml Vial) 4 mg IVPUSH Q8H PRN PRN Reason: Nausea and Vomiting Oxycodone HCl (Oxycodone Hcl Immed Release 5 Mg Tablet) 10 mg PO Q4H PRN PRN Reason: Pain, Severe (Pain Scale 7-10) Last Admin: 11/08/22 14:51 Dose: 10 mg Documented By: AMIRAEMA Pharmacy Consult (Consult Rx Vancomycin Dosing) 1 each MISCELLANE DAILY PRN PRN Reason: Consult order Sodium Chloride (0.9 % Sodium Chloride Flush 3 Ml Syringe) 3 ml IVFLUSH QSHIFT [facility] Last Admin: 11/08/22 07:30 Dose: 3 ml Documented By: COTEMA Spironolactone (Spironolactone 25 Mg Tablet) 50 mg PO DAILY [facility]; Protocol Last Admin: 11/08/22 07:25 Dose: 50 mg Documented By: COTIAN Trazodone HCl (Trazodone Hcl 100 Mg Tablet) 100 mg PO BEDTIME [facility] Last Admin: 11/07/22 19:48 Dose: 100 mg Documented By: VENLA Labs 11/04/22 05:47 11/08/22 07:48 Labs: Laboratory Results - last 24 hr 11/08/22 11/08/22 07:48 12:46 Estim Creat Clear Calc 104.4 Estimated GFR > 60 Vancomycin Trough 11.1 Microbiology Microbiology Results: Microbiology 11/04/22 02:24 Gram Stain - Final Abscess Rectal Routine Culture - Final Methicillin Res Staph Aureus Assessment and Plan (1) IV drug user: Status: Acute (2) Abscess: Status: Acute Plan d5 32yo F with hx injection drug abuse presenting with large gluteal abscess now with concern for extension into R SI joint; also possibility of paraspinal vs. periotoneal vs. 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 Treated with 6 wk of daptomycin. On that admission, transferred to [facility] [place] consideration of TV surgery but deemed not needed. 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 Neurosurgery deemed not needed. Relapsed on fentanyl and admitted to [place] 01/21/21, then transferred to [facility]. Found to have MRSA bacteremia + empyema + septic ATN; started on ceftaroline + daptomycin. Transferred to [facility] 02/18/23 for removal of mobile RV mass and debridement of TV 02/19 and Angiovac 02/20. Treated with daptomycin, then oral doxycycline. Found also to have actue displaced S1-2 sacral fracture with canal narrowing, L5-S1-S2 diskitis/osteomyelitis, septic arthritis of SI joints with effusion, sub-cm R piriformis intramuscular abscess, 2cm presacral collection likely abscesses. Abscesses too small to drain or too difficult to access. Underwent S1-S2 ALIF, L5-pelvic fusion, S1-S2 decompression 03/19/22. hypoK - repleted heterogeneous enhancement of liver and spleen - outpt MRI OUD cocaine abuse - Addiction Med consulted, resumed methadone HCV, chronic - outpt treatment - HIV negative mood disorder - continue buspirone, clonidine, gabapentin, trazodone, escitalopram VTE ppx - LMWH dispo - eventual home In my clinical judgment, the patient requires continued hospitalization for the following reasons: IV ABX Time Spent With Patient Time: Total time managing care of this patient today __35__ minutes. Quality Stroke Does the patient have a stroke diagnosis?: No VTE Prior VTE?: No VTE Risk Level:: Medical - moderate - high VTE Device Contraindication: Treatment Not Indicated VTE Drug Contraindication: N/A - Med Ordered
[2022-11-08 15:21] VITALS: BP 127/77; PULSE 53; RESP 20; TEMP 36; O2SAT 96
--- NOTE | 2022-11-08 15:36 | MHC.RECOVRN ---
T/w in to make contact with pt to assess how she is feeling with current dose of methadone. Pt sleepy at this time, reporting that she feels good , and is satisfied with current dose. Denying withdrawal symptoms at this time. LAST REPAIRER aware.
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
[2022-11-08] MEDS: traZODone HCL 100 MG TABLET PO (19:32)
[2022-11-08] MEDS: Albuterol Sulfate 90 MCG 8 GM INHALER 2 PUFF INHALE (19:40)
[2022-11-08 20:00] VITALS: BP 130/77; PULSE 60; RESP 18; TEMP 36.6; O2SAT 98
[2022-11-09] MEDS: vancomycin HCL 1,250 MG in 0.9 % Sodium Chloride 250 ML 166.67 MG IV (02:42)
[2022-11-09 04:00] VITALS: BP 118/68; PULSE 69; RESP 20; TEMP 36.2; O2SAT 98
[2022-11-09] MEDS: oxyCODONE HCl Immed Release 5 MG TABLET 10 MG PO ×3 (04:14→13:33)
[2022-11-09] MEDS: Acetaminophen 325 MG TABLET 650 MG PO (04:14)
[2022-11-09] MEDS: Piperacillin Sodium/Tazobactam 3.375 GM in 0.9 % Sodium Chloride 50 ML IV (04:46)
[2022-11-09] MEDS: methADONE HCl 20 MG/2 ML ORAL.CONC 45 MG PO (08:14)
[2022-11-09] MEDS: Escitalopram Oxalate 10 MG TABLET PO (08:15)
[2022-11-09] MEDS: Spironolactone 25 MG TABLET 50 MG PO (08:15)
[2022-11-09] MEDS: busPIRone HCl 5 MG TABLET PO ×2 (08:15→13:34)
[2022-11-09] MEDS: 0.9 % Sodium Chloride Flush 3 ML SYRINGE IVFLUSH (08:16)
[2022-11-09] MEDS: Furosemide 40 MG TABLET PO (08:16)
[2022-11-09] MEDS: methocarbamoL 500 MG TABLET PO (08:16)
[2022-11-09] MEDS: cloNIDine HCL 0.1 MG TABLET PO (08:22)
[2022-11-09 08:24] VITALS: BP 131/81; PULSE 67; RESP 18; TEMP 36.2; O2SAT 96
--- NOTE | 2022-11-09 09:25 | PC.NURSE ---
Dressing CDI, scant bloody drainage when dressing removed, 7 day supply of dressing change given to take home. Educated on wound care, pt states understanding and follow up care when discharged.
[2022-11-09] MEDS: Linezolid 600 MG TABLET PO (11:04)
[2022-11-09] MEDS: Gabapentin 300 MG CAPSULE PO (13:34)
--- NOTE | 2022-11-09 13:36 | MHC.RECOVRN ---
This blog writer met with patient, patient admitted for abscess. Pt was laying in bed, awake to verbal command. Pt reports doing well on MTD dose, denies withdrawal, cravings. Provider aware.
--- NOTE | 2022-11-09 13:40 | MHC.CM.PN ---
PT WILL DC TODAY WITH NO SERVICES BACK TO [facility]
--- NOTE | 2022-11-10 08:47 | MHC.RECOVRN ---
Upon chart review this morning, patient left 11/09/22 in the afternoon, per patient request, Methadone referral sent to [facility] for patient to continue Methadone.
--- NOTE | 2022-11-20 12:55 | P.CDIM_ITS ---
PROVIDER RESPONSE TEXT: To clarify, the appropriate diagnosis supported by the clinical indicators: Other: hyponatremia, mild and resolved; not clinically significant QUERY TEXT: PHYSICIAN'S DOCUMENTATION REQUEST Date of Query: 11/04/2022 12:51 PM EDT Patient Name: Lili Khan Admit Date: 11/04/2022 Dear Jaja Diaz, A review of the medical record indicates additional documentation may be needed. Please review below and update the documentation accordingly. Clinical Indicators: LAB FINDINGS 11/04 - sodium 130 L IV fluids Is there a diagnosis that correlates with these lab findings: Hyponatremia Labs indicate a diagnosis of (please specify) Other please specify Other (explain)Clinically unable to determine (explain)Thank you, Jasmin Roblero, CCS, CDIS Use of terms such as suspected, likely, concern for, or probable (associated with a specific diagnosi s that is being evaluated, monitored, or treated as if it exists) are acceptable and can be coded in the inpatient se tting, when documented at the time of discharge. Please use your independent medical judgment in providing your response. THIS QUERY IS PART OF THE PERMANENT MEDICAL RECORD
--- NOTE | 2022-11-20 12:55 | P.CDIM_ITS ---
PROVIDER RESPONSE TEXT: To clarify, the appropriate diagnosis supported by the clinical indicators: Sepsis QUERY TEXT: PHYSICIAN'S DOCUMENTATION REQUEST Date of Query: 11/05/2022 09:33 AM EDT Patient Name: Lili Khan Admit Date: 11/04/2022 Dear Jaja Diaz, A review of the medical record indicates additional documentation may be needed. Please review below and update the documentation accordingly. Clinical Indicators: ED: Patient developed a fever, elevated lactate, consistent with a significant infection, generalized malaise and weakness. 2 L of fluids started, Vancomycin along with empiric broad spectrum coverage with Rocephin/large righ t gluteal abscess. Repeat focal exam for sepsis was done at 02:00. Temp 101.9 LA 2.8 HR 119 RR 2.8 Admitted as inpatient Please clarify which, if any, of the following is the most likely etiology of the above symptoms and treatment rendered: Sepsis Localized infection only, without systemic illness Indicate the site/source, such as UTI, pneumonia, etc. Other (explain)Clinically unable to determine (explain)Thank you, Jasmin Roblero, CCS, CDIS Use of terms such as suspected, likely, concern for, or probable (associated with a specific diagnosi s that is being evaluated, monitored, or treated as if it exists) are acceptable and can be coded in the inpatient se tting, when documented at the time of discharge. Please use your independent medical judgment in providing your response. THIS QUERY IS PART OF THE PERMANENT MEDICAL RECORD
== END 2022-11-09 13:54 | disposition home or self-care (01) | DRG 720 ==
LOC: HO.ED 11-04 02:19 → HO.EDOVER 11-04 04:16 → HO.S3 11-04 09:58
PROVIDERS: Admitting Provider Internal Medicine; Emergency Provider Emergency Medicine Emergency Medical Services; Visit Provider Family Medicine
DX: A41.9 Sepsis, unspecified organism (principal); M46.28 Osteomyelitis of vertebra, sacral and sacrococcygeal region; L02.31 Cutaneous abscess of buttock; B18.2 Chronic viral hepatitis C; B95.62 Methicillin resistant Staphylococcus aureus infection as the cause of diseases classified elsewhere; E87.6 Hypokalemia; I07.1 Rheumatic tricuspid insufficiency; F39 Unspecified mood [affective] disorder; L03.317 Cellulitis of buttock; F11.20 Opioid dependence, uncomplicated; Z20.822 Contact with and (suspected) exposure to COVID-19; Z87.891 Personal history of nicotine dependence; Z79.899 Other long term (current) drug therapy
CPT/HCPCS: 36415; 71045; 72158; 72193; 74160; 76705; 76830; 76856; 80048; 80053; 80076; 80202; 80307; 81001; 82565; 83605; 83735; 84702; 85025; 86140; 86704; 86706; 86709; 86803; 87040; 87070; 87077; 87186; 87205; 87340; 87389; 87522; 87635; 97162; 99285; A9585; J0696; J1650; J1885; J2060; J2543; J3370; J3371; Q9967

== ENCOUNTER → 2022-11-04 02:36 | Outpatient (BNV) | payer OTHER, SELFPAY | PROVIDERS: Admitting Provider Internal Medicine; Emergency Provider Emergency Medicine Emergency Medical Services; Visit Provider Nurse Practitioner Psychiatric/Mental Health | DX: F11.20 Opioid dependence, uncomplicated (principal) | CPT/HCPCS: 99221; 99231 ==

== ENCOUNTER → 2022-11-04 02:36 | Outpatient (BNV) | payer OTHER, SELFPAY | PROVIDERS: Admitting Provider Internal Medicine; Emergency Provider Emergency Medicine Emergency Medical Services; Visit Provider Surgery | DX: L02.91 Cutaneous abscess, unspecified (principal) | CPT/HCPCS: 99222; 99232 ==

== ENCOUNTER → 2022-11-04 02:36 | Outpatient (BNV) | payer OTHER, SELFPAY | PROVIDERS: Admitting Provider Internal Medicine; Emergency Provider Emergency Medicine Emergency Medical Services; Visit Provider Internal Medicine | DX: L02.91 Cutaneous abscess, unspecified (principal); F19.90 Other psychoactive substance use, unspecified, uncomplicated | CPT/HCPCS: 99222 ==

== ENCOUNTER → 2022-11-04 02:36 | Outpatient (BNV) | payer OTHER, SELFPAY | PROVIDERS: Admitting Provider Internal Medicine; Emergency Provider Emergency Medicine Emergency Medical Services; Visit Provider Internal Medicine | DX: L02.31 Cutaneous abscess of buttock (principal); F19.90 Other psychoactive substance use, unspecified, uncomplicated | CPT/HCPCS: 99223; 99232; 99233; 99239; 99499 ==

== ENCOUNTER 2022-11-30 21:48 | Emergency (ER) | payer OTHER, SELFPAY ==
[2022-11-30 21:56] VITALS: BP 144/60; BP 151/108; PULSE 100; PULSE 97; RESP 16; TEMP 36.4; O2SAT 98; BMI 19.5
--- NOTE | 2022-11-30 22:25 | PC.NURSE ---
EMS dressing removed. Wound bleeding however not pulsatile. Direct pressure applied.
--- NOTE | 2022-11-30 22:30 | PC.NURSE ---
Pressure bandage and surgicel applied to left foot at this time.
[2022-12-01 00:02] VITALS: BP 156/91; PULSE 100; RESP 17; O2SAT 97
--- NOTE | 2022-12-01 00:56 | PC.NURSE ---
Pressure bandage and surgicel removed. No bleeding noted at this time. exofin applied to wound.
--- NOTE | 2022-12-01 01:22 | ED.GENADULT ---
HPI - General Adult General Chief complaint: Wound/Laceration Stated complaint: bleeding from foot Time Seen by Provider: 11/30/22 22:12 Source: patient and RN notes reviewed Mode of arrival: EMS Limitations: no limitations History of Present Illness HPI narrative: 32-year-old male presents for evaluation of bleeding from her left foot. Patient reports that she has ?varicose veins. ? She states that she stomped on the ground and her left foot started to bleed from 1 of her varicose veins. Patient called an ambulance for assistance She is not on any blood thinners Patient admits to using drugs earlier today and last used about 2 hours prior to arrival She has abdomen that she has no interest in detox and is only here for the bleeding on her left foot Related Data Home Medications Medication Instructions Recorded Confirmed buspirone 5 mg tablet 5 mg PO TID 11/04/22 11/04/22 escitalopram oxalate 10 mg tablet 10 mg PO DAILY 11/04/22 11/04/22 furosemide 40 mg tablet 40 mg PO DAILY 11/04/22 11/04/22 ondansetron HCl 4 mg tablet 4 mg PO Q8H PRN Nausea 11/04/22 11/04/22 spironolactone 50 mg tablet 50 mg PO DAILY 11/04/22 11/04/22 trazodone 100 mg tablet 100 mg PO BEDTIME 11/04/22 11/04/22 Previous Rx's Medication Instructions Recorded albuterol sulfate 90 mcg/actuation 2 puff inhalation Q4-6H PRN 05/25/22 aerosol inhaler shortness of breath or wheezing #8.5 grams clonidine HCl 0.1 mg tablet 0.1 mg PO TID PRN 11/06/22 Anxiety/Restlessness #1 tab gabapentin 300 mg capsule 300 mg PO BID@1300,2100 #1 cap 11/06/22 methadone 10 mg/mL oral 30 mg (3 mL) PO DAILY #1 mL 11/06/22 concentrate (Methadose) methocarbamol 500 mg tablet 500 mg PO BID #1 tab 11/06/22 linezolid 600 mg tablet 600 mg PO Q12H #56 tabs 11/09/22 oxycodone 5 mg tablet 10 mg (2 x 5 mg) PO Q4H PRN Pain, 11/09/22 Severe (Pain Scale 7-10) #18 tabs Allergies Allergy/AdvReac Type Severity Reaction Status Date / Time buprenorphine [From Suboxone] Allergy Anaphylaxis Verified 08/23/22 12:08 naloxone [From Suboxone] Allergy Anaphylaxis Verified 08/23/22 12:08 Review of Systems Constitutional: Constitutional: Denies fever(s) Integumentary/Breasts: Skin/Breast: Reports wounds PMFSH Past Medical History Medical History IV drug user Social History Social History Household Members: Unknown / Unable to assess Housing: Unknown / Unable to assess Unable to assess alcohol history related to: Refusing to respond Alcohol intake: never Patient Tobacco Use Status: Former Tobacco user Smoked in Last 30 Days: Yes Use of substances other than those prescribed or required for medical reasons: Yes Substance Use Type: Heroin Substance Use Frequency: Chronic Longstanding Last Used Substance: Hours (ago) Any prior treatment program specific to substance use: No Advance Directives: Yes Advance Directives on File: Yes Advance Directives Date on File: 11/04/22 service: No Physical Exam ED Vital Signs: Vital Signs - 24 hr 11/30/22 21:56 12/01/22 00:02 Temperature 97.6 F Pulse Rate 97 100 Respiratory Rate 16 17 Blood Pressure 151/108 H 156/91 H Pulse Oximetry 98 97 Oxygen Delivery Method Room Air Room Air BMI result Body Mass Index 19.5 Const Other: Patient is somewhat sleepy, but arouses to verbal stimuli only. She is able to stay awake throughout the encounter General: comfortable and alert Nutritional Appearance: well nourished Orientation/consciousness: patient oriented x3 HENMT Head: Yes normocephalic and Yes atraumatic Eyes Eyelids: Yes eyelids normal Conjunctivae: conjunctivae normal Sclerae: sclerae normal Corneas: corneas normal Pupils: Equal, round and reactive pupils present EOM: EOMs intact bilaterally Neck Neck: Yes full ROM Resp Effort & Inspection: normal respiratory effort, able to speak in complete sentences and not labored Skin Other: Patient has a small approximately 2 mm wound with active bleeding to the medial aspect of the left foot over an area of a for the varicose vein. Bleeding was initially controlled with direct pressure applied with an Kris wrap for about 1 hour. General skin exam: elasticity normal Neuro General: patient oriented x3 Cranial nerves: Yes Equal, round and reactive pupils present and Yes Bilaterally intact EOM present Cognition (Neuro): normal cognition Extrem Other: Moving all extremities well without any obvious deformities Course Reevaluation(s) Reevaluation #1: There was some brisk bleeding from the wound on initial evaluation. This was cessated with about an hour of direct pressure over Surgicel. When I removed the dressing and Surgicel, there was no further bleeding. I then applied skin adhesive to ensure there would be no further bleeding and to clean and dry Time: 01:25 Procedures Laceration Laceration 1: Site: lower extremity Side (If applicable): left (Left foot) Size (cm): 0.2 Description: linear Skin layer closed with: other (Adhesive skin glue) Medical Decision Making Medical Decision Making MDM Narrative: 32-year-old male presents for evaluation of a bleeding wound to her left foot. Hemostasis was achieved and the very small wound was sealed with skin glue. The patient was offered detox but declines. She had no further complaints and therefore there was no indication for labs. She is stable for discharge Differential Diagnosis Differential Diagnoses: The differential diagnosis associated with the presentation includes Laceration Skin tear Puncture wound Acute wound Substance abuse Discharge Plan Discharge Clinical Impression: Open wound of left foot Patient Disposition: Home, Self-Care Instructions: Acute Wounds (ED) Additional Instructions: You had a very small wound to your left foot over a varicose vein This was initially bleeding briskly. The bleeding was stopped with direct pressure and Surgicel The wound was then closed with Dermabond skin adhesive to prevent further bleeding Keep the area clean and dry Follow-up with your primary doctor Return for new or worsening symptoms, especially if there is any further bleeding Do not pick or scratch at the glue as it could lead to further bleeding Prescriptions: No Action albuterol sulfate 90 mcg/actuation HFA aerosol inhaler 2 puff inhalation Q4-6H PRN (Reason: shortness of breath or wheezing) Qty: 8.5 0RF furosemide 40 mg tablet 40 mg PO DAILY buspirone 5 mg tablet 5 mg PO TID ondansetron HCl 4 mg tablet 4 mg PO Q8H PRN (Reason: Nausea) trazodone 100 mg tablet 100 mg PO BEDTIME spironolactone 50 mg tablet 50 mg PO DAILY escitalopram oxalate 10 mg tablet 10 mg PO DAILY methocarbamol 500 mg Tablet 500 mg PO BID Qty: 1 0RF clonidine HCl 0.1 mg Tablet 0.1 mg PO TID PRN (Reason: Anxiety/Restlessness) Qty: 1 0RF Protocol: Hold for SBP< HOLD for SBP < : 90 gabapentin 300 mg Capsule 300 mg PO BID@1300,2100 Qty: 1 0RF methadone [Methadose] 10 mg/mL Concentrate 30 mg PO DAILY Qty: 1 0RF Rx Instructions: Partial Fill upon patient request. linezolid 600 mg Tablet 600 mg PO Q12H Qty: 56 0RF oxycodone 5 mg Tablet 10 mg PO Q4H PRN (Reason: Pain, Severe (Pain Scale 7-10)) Qty: 18 0RF Rx Instructions: Partial Fill upon patient request.
== END 2022-12-01 02:05 | disposition home or self-care (01) ==
PROVIDERS: Emergency Provider Emergency Medicine
DX: S91.302A Unspecified open wound, left foot, initial encounter (principal); X58.XXXA Exposure to other specified factors, initial encounter; F19.90 Other psychoactive substance use, unspecified, uncomplicated; F11.20 Opioid dependence, uncomplicated; B18.2 Chronic viral hepatitis C; Z87.891 Personal history of nicotine dependence; Z79.899 Other long term (current) drug therapy; Y93.9 Activity, unspecified; Y92.9 Unspecified place or not applicable; Y99.9 Unspecified external cause status
CPT/HCPCS: 12001; 99282; 99284

== ENCOUNTER 2023-09-04 02:36 | Inpatient (IN) | payer SELFPAY ==
[2023-09-04] VITALS (12 sets, daily range): BP systolic 106–140; BP diastolic 60–89; PULSE 66–102; RESP 12–21; TEMP 36.6–37.2; O2SAT 91–99; BMI 26.4; BMI 27.5
--- NOTE | ~2023-09-04 | CT_ITS ---
EXAMINATION: CT LOWER LEG WITH CONTRAST, RIGHT CLINICAL INFORMATION: Concern for lower leg abscess. COMPARISON: None available. TECHNIQUE: Multidetector volumetric imaging was obtained through the right lower leg following intravenous administration of 85 mL Omnipaque 350. Multiplanar reformatted images in coronal and sagittal orientations were submitted. This CT examination was performed using dose optimization techniques as appropriate, variously including the following: *Automated exposure control *Adjustment of mA and/or kV according to patient size (this includes techniques or standardized protocols for targeted exams where dose is matched to indication/reason for exam; i.e. extremities or head) *Use of iterative reconstruction technique DLP: 313 mGy-cm FINDINGS: There is circumferential skin thickening in the right lower leg extending from the knee through the ankle with associated subcutaneous fat stranding/edema. No discrete fluid collections are identified. No subcutaneous gas. The subcutaneous fat stranding extends to the depth of the underlying musculature. Musculature is normal in attenuation. No intramuscular fascial edema/fat stranding is identified. The deep and superficial veins in the lower extremity. Dilated, likely due to hyperemia. No appreciable sites of thrombosis are identified. Bone mineralization is normal. No fracture or malalignment. No joint effusions. CT/CT lower leg RT w IV con IMPRESSION: Circumferential skin thickening and subcutaneous fat stranding in the right lower leg, most consistent with cellulitis. No appreciable abscess or subcutaneous gas.
--- NOTE | 2023-09-04 08:22 | PC.NURSE ---
pt a difficult poke, unable to obtain blood via straight stick and butterfly via PCT. request to U/S guide place IV
--- NOTE | 2023-09-04 08:27 | ED_ITS ---
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 She is still currently under the influence but appears in a lot of pain. She cannot provide much history but states she woke up like this. MD Complaint: extremity pain and extremity swelling Onset (ago): day(s) (3) Pain Consistency: constant Location: right and lower extremity Quality: burning, stabbing and aching Radiation: distal Relieving factors: immobilization Exacerbating factors: range of motion, weight bearing, walking and palpation Associated symptoms: rash Context: other (IVDA, sleeps outside, fell asleep ) Related Data Home Medications ?Medication ?Instructions ?Recorded ?Confirmed buspirone 5 mg tablet 5 mg PO TID 11/04/22 11/04/22 escitalopram oxalate 10 mg tablet 10 mg PO DAILY 11/04/22 11/04/22 furosemide 40 mg tablet 40 mg PO DAILY 11/04/22 11/04/22 ondansetron HCl 4 mg tablet 4 mg PO Q8H PRN Nausea 11/04/22 11/04/22 spironolactone 50 mg tablet 50 mg PO DAILY 11/04/22 11/04/22 trazodone 100 mg tablet 100 mg PO BEDTIME 11/04/22 11/04/22 Previous Rx's ?Medication ?Instructions ?Recorded albuterol sulfate 90 mcg/actuation 2 puff inhalation Q4-6H PRN 05/25/22 aerosol inhaler shortness of breath or wheezing #8.5 grams clonidine HCl 0.1 mg tablet 0.1 mg PO TID PRN 11/06/22 Anxiety/Restlessness #1 tab gabapentin 300 mg capsule 300 mg PO BID@1300,2100 #1 cap 11/06/22 methadone 10 mg/mL oral 30 mg (3 mL) PO DAILY #1 mL 11/06/22 concentrate (Methadose) methocarbamol 500 mg tablet 500 mg PO BID #1 tab 11/06/22 linezolid 600 mg tablet 600 mg PO Q12H #56 tabs 11/09/22 oxycodone 5 mg tablet 10 mg (2 x 5 mg) PO Q4H PRN Pain, 11/09/22 Severe (Pain Scale 7-10) #18 tabs Allergies Allergy/AdvReac Type Severity Reaction Status Date / Time buprenorphine [From Suboxone] Allergy Anaphylaxis Verified 09/04/23 02:49 naloxone [From Suboxone] Allergy Anaphylaxis Verified 09/04/23 02:49 Review of Systems 2 Review of Systems: Constitutional : No Fever, pos Chills ENT/Mouth : No sore throat, No Rhinorrhea Eyes: No Eye Pain, No Swelling, No Redness Cardiovascular : No Chest Pain, No SOB Respiratory : No Cough, No Sputum Gastrointestinal : No Nausea, No Vomiting, No Diarrhea, No abdominal Pain Genitourinary : No Dysuria, No Hematuria Musculoskeletal : No joint pain, pos Myalgias, No Joint Swelling Skin :pos Skin Lesions, positive skin rash Neuro : No Weakness, No Numbness, No Headache Psych : No Anxiety, No Depression Heme/Lymph: No Bruising, No Bleeding,No Lymphadenopathy Endocrine : No Polyuria, No Polydipsia All other systems reviewed and are negative PMFSH Past Medical History Attestation statement: The following information was validated with the patient. Source: old records reviewed Medical History Mood disorder MRSA bacteremia Chronic hepatitis C without hepatic coma IV drug user Social History Social History Household Members: Unknown / Unable to assess Housing: Unknown / Unable to assess Unable to assess alcohol history related to: Refusing to respond Alcohol intake: never Patient Tobacco Use Status: Former Tobacco user Smoked in Last 30 Days: Yes Substance Use Type: Crack/Cocaine, Heroin and Marijuana Advance Directives: Yes Advance Directives on File: Yes Advance Directives Date on File: 11/04/22 Do you have a plan to hurt others: No Plan Nutrition Risks: No Nutritional Risk Patient : No service: No Physical Exam 2 Vital Signs: Vital Signs: Last Vital Signs Temp 97.8 F 09/04/23 13:45 Pulse 72 09/04/23 13:45 Resp 18 09/04/23 13:45 BP 106/60 09/04/23 13:45 Pulse Ox 94 09/04/23 13:45 O2 Del Method Nasal Cannula 09/04/23 13:45 O2 Flow Rate 2 09/04/23 13:45 BMI result Body Mass Index 27.5 Appearance: Alert. Oriented X3. No acute distress. very disheveled and unkempt Eyes: Pupils equal, round and reactive to light. ENT: Pharynx dry MM Neck: Normal inspection. Neck supple. CVS: Normal heart rate and rhythm. Pulses normal. Respiratory: No respiratory distress. Breath sounds normal. Abdomen: Soft and nontender. Skin: Skin warm and dry. Normal skin color. Normal skin turgor. Extremities: see picture below compartments soft and compressible 2+ DP pulse, SILT intact, compartments soft and compressible no pain with passive or active motion of ankle or toes. Neuro: Oriented X 3. No motor deficit. No sensory deficit. Medications Administered Generic Name Dose Route Start Last Admin Trade Name Freq PRN Reason Stop Dose Admin Enoxaparin Sodium 40 mg 09/04/23 12:00 09/04/23 12:56 Enoxaparin Sodium 40 Mg/0.4 Ml Syringe SUBCUT Not Given Q24H DONALD Discontinued Medications Generic Name Dose Route Start Last Admin Trade Name Freq PRN Reason Stop Dose Admin Hydromorphone HCl 1 mg 09/04/23 08:10 09/04/23 08:38 Hydromorphone Hcl 1 Mg/Ml Syringe IVPUSH 09/04/23 08:11 1 mg ONCE ONE Administration Protocol Sodium Chloride 1,000 mls @ 999 mls/hr 09/04/23 08:10 09/04/23 09:53 Ns IV 09/04/23 09:10 Infused .Q1H1M ONE Infusion Sodium Chloride 1,000 mls @ 999 mls/hr 09/04/23 08:10 09/04/23 09:53 Ns IV 09/04/23 09:10 Infused .Q1H1M ONE Infusion Cefepime HCl 2 gm/ Sodium 50 mls @ 100 mls/hr 09/04/23 08:10 09/04/23 09:53 Chloride IV 09/04/23 08:39 Infused ONCE ONE Infusion Vancomycin HCl 1,500 mg/ 500 mls @ 333.333 mls/hr 09/04/23 08:10 09/04/23 11:04 Sodium Chloride IV 09/04/23 09:39 Infused ONCE ONE Infusion Iohexol 100 ml 09/04/23 10:41 09/04/23 10:41 Iohexol 350 Mg/Ml 100 Ml Infus..Btl IV 09/04/23 10:42 85 ml ONCE ONE Administration Methadone HCl 40 mg 09/04/23 09:40 09/04/23 09:51 Methadone Hcl 20 Mg/2 Ml Oral.Conc PO 09/04/23 09:41 40 mg ONCE ONE Administration Ondansetron HCl 4 mg 09/04/23 09:34 09/04/23 09:51 Ondansetron Hcl 4 Mg/2 Ml Vial IVPUSH 09/04/23 09:35 4 mg ONCE ONE Administration Medical Decision Making Medical Decision Making MDM Narrative: 33 yo female with PMH of Hep C, mood disorder, MRSA bacteremia and 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 At this time labs, IVF, CPK level, CT scan for abscess, IV cefepime/vancomycin. Differential Diagnosis Differential Diagnoses: The differential diagnosis associated with the presentation includes abscess, cellulitis, severe soft tissue infection rhabdo Admission/Observation Consideration of admission/observation: Escalation of care including admission/observation considered admit Consult Healthcare Provider Management of the patient was discussed with: Hospitalist (will admit) and [employer] (addiction start on 40mg methadone) Lab Data [facility] Lab Attestation statement: I reviewed the patient's lab results. 09/04/23 08:30 09/04/23 08:29 Labs: Lab Results 09/04/23 09/04/23 09/04/23 Range/Units 08:29 08:30 11:29 WBC 11.2 H (4.8-10.8) X10*3/uL RBC 5.94 H D (4.20-5.50) X10*6/uL Hgb 15.6 D (12.0-16.0) g/dl Hct 48.3 H D (37.0-47.0) % MCV 81.3 (80.0-98.0) fL MCH 26.3 L (27.0-33.0) pg MCHC 32.3 (31.0-35.0) g/dl RDW 18.3 H (11.0-16.0) % Plt Count 164 (160-400) X10*3/uL MPV 9.1 L (9.4-12.3) fL Immature Gran % (Auto) 0.3 (0.0-0.4) % Neut % (Auto) 64.3 (45-73) % Lymph % (Auto) 26.8 (20-40) % [place] % (Auto) 7.1 (2-11) % Eos % (Auto) 0.9 (0-4) % Baso % (Auto) 0.6 (0-2) % Lymph # (Auto) 3.0 (1.2-4.9) X10*3/uL [place] # (Auto) 0.8 (0.1-1.2) X10*3/uL Eos # (Auto) 0.1 (0.0-0.4) X10*3/uL Baso # (Auto) 0.1 (0.0-0.2) X10*3/uL Abs Immat Gran (auto) 0.03 (0.00-0.03) X10*3/uL Absolute Neuts (auto) 7.2 (2.0-8.3) x10*3/uL Absolute Nucleated RBC 0.000 (0.0-0.012) X10*3/uL Nucleated RBC % (auto) 0.0 (0.0-0.2) /100WBC Sodium 131 L (135-145) mmol/L Potassium 3.5 (3.3-5.1) mmol/L Chloride 95 L (96-108) mmol/L Carbon Dioxide 26 (22-29) mmol/L Anion Gap 14 (12-20) BUN 13 (9-16) mg/dL Creatinine 0.79 (0.5-1.4) mg/dL Estim Creat Clear Calc 82.9 Estimated GFR > 60 Random Glucose 109 (60-115) mg/dL Lactic Acid 1.4 (0.5-2.0) mmol/L Calcium 9.1 D (8.4-10.2) mg/dL Total Bilirubin 1.5 H (0.0-1.0) mg/dL Direct Bilirubin 0.9 H (0.0-0.5) mg/dL AST 61 H (5-31) U/L ALT 66 H (0-31) U/L Alkaline Phosphatase 121 H (39-117) U/L Total Creatine Kinase 70 (26-140) U/L Total Protein 8.8 H (6.5-8.0) g/dL Albumin 3.7 (3.5-5.0) g/dL Beta HCG, Quant < 2 mIU/mL Urine Color Yellow Urine Appearance Clear Urine pH 6.0 (5.0-9.0) Ur Specific [place] >= 1.030 H (1.005-1.025) Urine Protein 30 (1+) H (Neg-Trace) mg/dL Urine Glucose (UA) Negative (Negative) mg/dL Urine Ketones Negative (Negative) mg/dL Urine Blood Small (1+) H (Negative) Urine Nitrite Negative (Negative) Ur Leukocyte Esterase Small (1+) H (Negative) Urine RBC 3-5 H (0-2) /HPF Urine WBC 0-5 (0-5) /HPF Ur Squamous Epith Cells 3-5 (0-2) /HPF Urine Bacteria Trace (None Seen) Hyaline Casts 0-2 (0-2) /LPF Urine Test NEGATIVE (NEGATIVE) Urine Opiates Screen Not Detected (Not Detect) Ur Buprenorphine Scrn Not Detected (Not Detect) ng/mL Ur Oxycodone Screen Not Detected (Not Detect) ng/mL Urine Methadone Screen Positive H (Not Detect) ng/mL Urine Fentanyl Screen POSITIVE H (Not Detect) Ur Barbiturates Screen Not Detected (Not Detect) Ur Phencyclidine Scrn Not Detected (Not Detect) Ur Amphetamines Screen Not Detected (Not Detect) U Benzodiazepines Scrn Not Detected (Not Detect) Urine Cocaine Screen POSITIVE H (Not Detect) U Marijuana (THC) Screen Not Detected (Not Detect) Ethyl Alcohol < 10 mg/dL Independent Interpretation I performed an independent interpretation of an: CT Scan (no gas or abscess) Radiology Impression Discussion of test interpretation with radiology: I have reviewed the radiologist's reading. External Record Review External record reviewed: Inpatient record Social Determinants Patient?s care significantly limited by Social Determinants of Health including: Inadequate housing, Low income and Problems related to primary support group Critical Care Time Critical Care Time Critical Care Time: Yes Total Critical Care Time: 60 Attestation: review of records, 2L of IVF, pain improved with IV dilaudid, admission I attest to this time spent taking care of the patient Discharge Plan Discharge Clinical Impression: Opioid use disorder, Elevated liver enzymes Cellulitis Qualifiers: Site of cellulitis: extremity Site of cellulitis of extremity: lower extremity Laterality: right Qualified Code(s): L03.115 - Cellulitis of right lower limb Patient Disposition: Admitted As Inpatient
[2023-09-04 08:35] LABS: MANUAL DIFF FLAG NO
[2023-09-04] MEDS: HYDROmorphone HCl 1 MG/ML SYRINGE IVPUSH (08:38)
[2023-09-04] MEDS: 0.9 % Sodium Chloride 1,000 ML 999 ML IV ×2 (08:38)
[2023-09-04] MEDS: cefEPime HCl 2 GM in 0.9 % Sodium Chloride 50 ML IV (08:38)
[2023-09-04 08:40] LABS: Basophils Absolute Auto 0.1 X10*3/uL (0.0-0.2); Basophils Percent Auto 0.6 % (0-2); Eosinophils Absolute Auto 0.1 X10*3/uL (0.0-0.4); Eosinophils Percent Auto 0.9 % (0-4); Hematocrit 48.3 % (37.0-47.0); Hemoglobin 15.6 g/dl (12.0-16.0); Imm Gran Abs Auto 0.03 X10*3/uL (0.00-0.03); Imm Gran Pct Auto 0.3 % (0.0-0.4); Lymphocytes Percent Auto 26.8 % (20-40); Mean Corpuscular HGB Conc 32.3 g/dl (31.0-35.0); Mean Corpuscular Hemoglobin 26.3 pg (27.0-33.0); Mean Corpuscular Volume 81.3 fL (80.0-98.0); Mean Platelet Volume 9.1 fL (9.4-12.3); Monocytes Absolute Auto 0.8 X10*3/uL (0.1-1.2); Monocytes Percent Auto 7.1 % (2-11); Neutrophils Absolute Auto 7.2 x10*3/uL (2.0-8.3); Neutrophils Percent Auto 64.3 % (45-73); Platelet Count 164 X10*3/uL (160-400); Red Blood Count 5.94 X10*6/uL (4.20-5.50); Red Cell Distribution Width 18.3 % (11.0-16.0); White Blood Count 11.2 X10*3/uL (4.8-10.8)
[2023-09-04 08:49] LABS: Lactic Acid 1.4 mmol/L (0.5-2.0)
[2023-09-04 08:54] LABS: Anion Gap 14 (12-20); Blood Urea Nitrogen 13 mg/dL (9-16); Calcium 9.1 mg/dL (8.4-10.2); Carbon Dioxide 26 mmol/L (22-29); Chloride 95 mmol/L (96-108); Creatinine Clr Calc Pharmacy 82.9; Estimated Glomerular Filt Rate > 60; Glucose Random 109 mg/dL (60-115); Potassium 3.5 mmol/L (3.3-5.1); Sodium 131 mmol/L (135-145)
[2023-09-04 09:01] LABS: Alanine Aminotransferase 66 U/L (0-31); Albumin Level 3.7 g/dL (3.5-5.0); Alkaline Phosphatase 121 U/L (39-117); Aspartate Amino Transferase 61 U/L (5-31); Bilirubin Direct 0.9 mg/dL (0.0-0.5); Bilirubin Total 1.5 mg/dL (0.0-1.0); Total Protein 8.8 g/dL (6.5-8.0)
[2023-09-04 09:02] LABS: HCG Quantitative < 2 mIU/mL
[2023-09-04 09:23] LABS: Ethanol < 10 mg/dL
[2023-09-04] MEDS: vancomycin HCL 1,500 MG in 0.9 % Sodium Chloride 500 ML 333.33 MG IV (09:29)
[2023-09-04] MEDS: ondansetron HCL 4 MG/2 ML VIAL IVPUSH (09:51)
[2023-09-04] MEDS: methADONE HCl 20 MG/2 ML ORAL.CONC 40 MG PO (09:51)
--- NOTE | 2023-09-04 10:25 | MHC.RECOVRN ---
Briefly met with pt in ED18 after request from provider. Pt sitting in bed, awake, alert, actively vomiting. Appears uncomfortable-diaphoretic, goosebumps. Pt difficult to engage in conversation due to withdrawal. Pt reports heroin/fentanyl use, 1 bundle daily. Reports feeling cold, irritable, restless. Pt would like to utilize methadone to address withdrawal symptoms. Denies questions or concerns for t/w. Discussed with ED provider, plan to administer 40 mg methadone.
[2023-09-04] MEDS: iohexoL 350 MG/ML 100 ML INFUS..BTL IV (10:41)
--- NOTE | 2023-09-04 11:33 | MHC.EDTECH ---
pt vital signs collected, pt helped to the comode, MD watson in- pt asked for food, pt given sandwich by , call hinds within reach.
[2023-09-04 11:39] LABS: Appearance Urine Clear; Color Urine Yellow; Glucose Urine UA Negative (Negative); Leukocyte Esterase Urine Small (1+) (Negative); Nitrite Urine Negative (Negative); Specific Gravity - Urine >= 1.030 (1.005-1.025); UMIC TRIGGER UACC YES; Urine Blood Small (1+) (Negative); Urine Ketones Negative (Negative); Urine Protein 30 (1+) mg/dL (Neg-Trace)
[2023-09-04 11:41] LABS: UPreg QC Valid YES; Urine Pregnancy NEGATIVE (NEGATIVE)
--- NOTE | 2023-09-04 11:44 | P.HPHOSP_ITS ---
History of Present Illness Date of Service: 09/04/23 Chief Complaint: Leg infection This is a 33-year-old female with pertinent history of IV drug use disorder, 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 Patient states she 1st noticed redness of her right lower leg 3 days ago. It has been progressive and worse over the last 24 hours. She noticed that the right leg is swollen, warm and painful. She lost used IV heroin prior to coming to the ER. Endorses chills and nausea. No fever, chest discomfort, palpitations, shortness of breath abdominal pain, changes in urinary or bowel habits. In the emergency department, patient was given empiric IV antibiotics Review of Systems 2 Constitutional: Constitutional: Reports no additional constitutional complaints Cardiovascular: Cardiovascular: Reports no additional cardiovascular complaints Respiratory: Respiratory: Reports no additional respiratory complaints Gastrointestinal: Gastrointestinal: Reports no additional gastrointestinal complaints Genitourinary: Genitourinary: Reports no additional female genitourinary complaints PMFSH Medical History Mood disorder MRSA bacteremia Chronic hepatitis C without hepatic coma IV drug user Pertinent family history: No family history of early CAD Social History Household Members: Unknown / Unable to assess Housing: Unknown / Unable to assess Unable to assess alcohol history related to: Refusing to respond Alcohol intake: never Patient Tobacco Use Status: Former Tobacco user Smoked in Last 30 Days: Yes Substance Use Type: Crack/Cocaine, Heroin and Marijuana Advance Directives: Yes Advance Directives on File: Yes Advance Directives Date on File: 11/04/22 Do you have a plan to hurt others: No Plan Patient : No service: No Meds Allergies Allergy/AdvReac Type Severity Reaction Status Date / Time buprenorphine [From Suboxone] Allergy Anaphylaxis Verified 09/04/23 02:49 naloxone [From Suboxone] Allergy Anaphylaxis Verified 09/04/23 02:49 Home Medications ?Medication ?Instructions ?Recorded ?Confirmed ?Last Taken ?Type buspirone 5 mg tablet 5 mg PO TID 11/04/22 11/04/22 Unknown History escitalopram oxalate 10 mg tablet 10 mg PO DAILY 11/04/22 11/04/22 Unknown History furosemide 40 mg tablet 40 mg PO DAILY 11/04/22 11/04/22 Unknown History ondansetron HCl 4 mg tablet 4 mg PO Q8H PRN Nausea 11/04/22 11/04/22 Unknown History spironolactone 50 mg tablet 50 mg PO DAILY 11/04/22 11/04/22 Unknown History trazodone 100 mg tablet 100 mg PO BEDTIME 11/04/22 11/04/22 Unknown History Physical Exam 2 Vital Signs and Narrative: Vital Signs: Last Vital Signs Temp 97.9 F 09/04/23 11:24 Pulse 85 09/04/23 11:24 Resp 15 09/04/23 11:24 BP 127/86 09/04/23 11:24 Pulse Ox 93 09/04/23 09:56 O2 Del Method Nasal Cannula 09/04/23 11:24 O2 Flow Rate 2 09/04/23 11:24 BMI result Body Mass Index 27.5 Middle-aged female lying in bed in no distress Neck supple, no JVD Regular rate and rhythm, S1-S2 heard Regular breath sounds bilaterally, no wheezing or crackles appreciated Abdomen soft nontender, no guarding, no rigidity Patient is awake, alert and oriented to self, place, time and person ; no focal motor deficit Psych: Normal mood Multiple track barrett seen on bilateral upper extremities Right lower extremity with erythema, warmth and tenderness as pictured below Skin: Other: Results Labs 09/04/23 08:30 09/04/23 08:29 Labs: Laboratory Results - last 24 hr 09/04/23 09/04/23 09/04/23 08:29 08:30 11:29 MCV 81.3 MCH 26.3 L MCHC 32.3 RDW 18.3 H Plt Count 164 MPV 9.1 L Immature Gran % (Auto) 0.3 Neut % (Auto) 64.3 Lymph % (Auto) 26.8 [place] % (Auto) 7.1 Eos % (Auto) 0.9 Baso % (Auto) 0.6 Lymph # (Auto) 3.0 [place] # (Auto) 0.8 Eos # (Auto) 0.1 Baso # (Auto) 0.1 Abs Immat Gran (auto) 0.03 Absolute Neuts (auto) 7.2 Absolute Nucleated RBC 0.000 Nucleated RBC % (auto) 0.0 Anion Gap 14 Estim Creat Clear Calc 82.9 Estimated GFR > 60 Random Glucose 109 Lactic Acid 1.4 Calcium 9.1 D Total Bilirubin 1.5 H Direct Bilirubin 0.9 H AST 61 H ALT 66 H Alkaline Phosphatase 121 H Total Creatine Kinase 70 Total Protein 8.8 H Albumin 3.7 Beta HCG, Quant < 2 Urine Color Yellow Urine Appearance Clear Urine pH 6.0 Ur Specific [place] >= 1.030 H Urine Protein 30 (1+) H Urine Glucose (UA) Negative Urine Ketones Negative Urine Blood Small (1+) H Urine Nitrite Negative Ur Leukocyte Esterase Small (1+) H Urine Test NEGATIVE Ethyl Alcohol < 10 Imaging Radiologist's Impressions: Impressions Lower Extremity CT 09/04/23 10:42 IMPRESSION: Circumferential skin thickening and subcutaneous fat stranding in the right lower leg, most consistent with cellulitis. No appreciable abscess or subcutaneous gas. Assessment and Plan (1) Cellulitis: Qualifiers: Laterality: right Site of cellulitis: extremity Site of cellulitis of extremity: lower extremity Qualified Code(s): L03.115 - Cellulitis of right lower limb Status: Acute Plan This is a 33-year-old female with pertinent history of IV drug use disorder, 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 #. Right leg cellulitis: Will admit patient due to extensive cellulitis for IV antibiotics. Initiating IV vancomycin. Monitor for improvement. No sepsis. #. Elevated liver enzymes: Outpatient follow-up #. Polysubstance use disorder: Monitor for withdrawal. Consulted Addiction Team. COWS q shift. UDS pending DVT prophylaxis: Lovenox Full code Admit as inpatient and will require two night minimum hospital stay for IV antibiotics (as above), which is not possible in a lesser acute setting. Quality Stroke Does the patient have a stroke diagnosis?: No VTE Prior VTE?: No VTE Risk Level:: Medical - moderate - high VTE Device Contraindication: Treatment Not Indicated VTE Drug Contraindication: N/A - Med Ordered
[2023-09-04 11:47] LABS: Amphetamine Screen Urine Not Detected (Not Detect); Barbiturates, Urine Not Detected (Not Detect); Benzodiazepines Screen Urine Not Detected (Not Detect); Buprenorphine Scr Not Detected (Not Detect); Cannabinoid Screen Urine Not Detected (Not Detect); Cocaine Screen Urine POSITIVE (Not Detect); Fentanyl, urine POSITIVE (Not Detect); Methadone Screen, Urine Positive (Not Detect); Opiate Screen Urine Not Detected (Not Detect); Oxycodone Screen Urine Not Detected (Not Detect); Phencyclidine Screen Urine Not Detected (Not Detect)
[2023-09-04 11:57] LABS: Bacteria Urine Trace (None Seen); Hyaline Casts Urine 0-2 /LPF (0-2); UACC Culture Trigger YES; WBC Urine 0-5 /HPF (0-5)
--- NOTE | 2023-09-04 12:03 | PHA.PROG ---
Admission Date/Time: September 04, 2023 11:43 Indication: Weight in k.9 kg Adjusted body weight in K.86 Serum Creatinine - Last 168 Hours 09/04/23 08:29 Creatinine 0.79 Estimated CrCl and GFR - Last 168 Hours 09/04/23 08:29 Estim Creat Clear Calc 82.9 Estimated GFR > 60 Vancomycin Loading Dose: 1,500 MG Current Vancomycin Dosing Regimen: 1,000 MG Q12H Vancomycin Monitoring using AUC goal of 400 - 600 range with trough as surrogate marker: 509, predicted trough 15.2 Date and Time for next Vancomycin Level to be drawn: 09/04 @ 1900 Pharmacist Comments on Vancomycin Plan: Vancomycin dosing will take advantage of agreement24 avtal24 as a clinical decision support tool that uses Bayesian modeling to calculate individual patient's pharmacokinetic parameters and forecast the patient's drug concentration time course with the target goal AUC 24 range of 400 - 600 mg/L/hr.
--- NOTE | 2023-09-04 14:42 | PC.NURSE ---
patient resting in room w/ eyes closed - even and unlabored respirations. oxygen remains on 2L nasal cannula at this time
[2023-09-04] MEDS: 0.9 % Sodium Chloride Flush 3 ML SYRINGE IVFLUSH (16:16)
--- NOTE | 2023-09-04 19:48 | PHA.MEDREC ---
Pharmacy Consult ? Medication Reconciliation Pharmacy has completed the medication reconciliation. Spoke to patient to confirm med list . Patient states she hasn't been on any medication in months.
[2023-09-04] MEDS: vancomycin HCL 1,000 MG in 0.9 % Sodium Chloride 250 ML 270 MG IV (21:13)
[2023-09-04] MEDS: Acetaminophen 325 MG TABLET 650 MG PO (21:33)
[2023-09-04] MEDS: HYDROmorphone HCl 0.5 MG/0.5 ML SYRINGE IVPUSH (22:50)
[2023-09-05 05:37] VITALS: BP 134/79; PULSE 64; RESP 16; TEMP 36.8; O2SAT 100
[2023-09-05 05:40] LABS: Basophils Absolute Auto 0.1 X10*3/uL (0.0-0.2); Basophils Percent Auto 0.7 % (0-2); Eosinophils Absolute Auto 0.3 X10*3/uL (0.0-0.4); Eosinophils Percent Auto 3.9 % (0-4); Hematocrit 40.9 % (37.0-47.0); Hemoglobin 13.4 g/dl (12.0-16.0); Imm Gran Abs Auto 0.08 X10*3/uL (0.00-0.03); Lymphocytes Absolute Auto 3.1 X10*3/uL (1.2-4.9); Mean Corpuscular HGB Conc 32.8 g/dl (31.0-35.0); Mean Corpuscular Hemoglobin 26.5 pg (27.0-33.0); Mean Platelet Volume 10.4 fL (9.4-12.3); Monocytes Absolute Auto 0.9 X10*3/uL (0.1-1.2); Monocytes Percent Auto 10.9 % (2-11); Neutrophils Absolute Auto 3.9 x10*3/uL (2.0-8.3); Neutrophils Percent Auto 46.5 % (45-73); PLT CLUMP 1; Red Blood Count 5.05 X10*6/uL (4.20-5.50); Red Cell Distribution Width 17.9 % (11.0-16.0); SCAN SMEAR FLAG 1
[2023-09-05 05:45] LABS: MANUAL DIFF FLAG NO; White Blood Count 8.3 X10*3/uL (4.8-10.8)
[2023-09-05 05:52] LABS: Anion Gap 13 (12-20); Blood Urea Nitrogen 13 mg/dL (9-16); Calcium 8.3 mg/dL (8.4-10.2); Carbon Dioxide 19 mmol/L (22-29); Chloride 110 mmol/L (96-108); Creatinine Clr Calc Pharmacy 102.3; Estimated Glomerular Filt Rate > 60; Glucose Random 136 mg/dL (60-115); Potassium 4.2 mmol/L (3.3-5.1); Sodium 138 mmol/L (135-145)
[2023-09-05 06:06] LABS: Platelet Count 140 X10*3/uL (160-400)
[2023-09-05] MEDS: methADONE HCl 20 MG/2 ML ORAL.CONC 50 MG PO (07:17)
[2023-09-05 07:48] VITALS: BP 119/60; PULSE 65; RESP 18; TEMP 36.6; O2SAT 97
[2023-09-05] MEDS: 0.9 % Sodium Chloride Flush 3 ML SYRINGE IVFLUSH ×3 (09:32→21:17)
[2023-09-05] MEDS: vancomycin HCL 1,000 MG in 0.9 % Sodium Chloride 250 ML 270 MG IV (09:32)
--- NOTE | 2023-09-05 09:39 | MHC.RECOVRN ---
Briefly met with pt in 380 after receiving 50 mg methadone this morning. Pt laying in bed, eyes closed, wakes to voice, reports feeling tired. Pt denies current withdrawal symptoms. Pt reports she would like to continue with methadone. Attempted to engage pt in further conversation regarding substance use and which OTP to connect to, pt states that's too much right now. Provider aware, plan to continue 50 mg methadone daily.
--- NOTE | 2023-09-05 10:45 | HO.PM.IMPN ---
Subjective Subjective Date of Service: 09/05/23 Interval History: No acute nursing events overnight. Slight improvement in cellulitis noted. Constitutional Constitutional: Reports no additional constitutional complaints Cardiovascular Cardiovascular: Reports no additional cardiovascular complaints Respiratory Respiratory: Reports no additional respiratory complaints Gastrointestinal Gastrointestinal: Reports no additional gastrointestinal complaints Physical Exam Vital Signs: Vital Signs: Last Vital Signs Temp 98 F 09/05/23 07:48 Pulse 65 09/05/23 07:48 Resp 18 09/05/23 07:48 BP 119/60 09/05/23 07:48 Pulse Ox 97 09/05/23 07:48 O2 Del Method Room Air 09/05/23 07:48 O2 Flow Rate 2 09/05/23 05:37 BMI result Body Mass Index 27.5 Middle-aged female lying in bed in no distress Neck supple, no JVD Regular rate and rhythm, S1-S2 heard Regular breath sounds bilaterally, no wheezing or crackles appreciated Abdomen soft nontender, no guarding, no rigidity Patient is awake, alert and oriented to self, place, time and person ; no focal motor deficit Psych: Normal mood Multiple track barrett seen on bilateral upper extremities Right lower extremity with erythema, warmth and tenderness as pictured below Skin: Other: Objective Data Active Medications Acetaminophen (Acetaminophen 325 Mg Tablet) 650 mg PO Q6H PRN PRN Reason: Pain, Mild (Pain Scale 1-3), fever or headache Last Admin: 09/04/23 21:33 Dose: 650 mg Documented By: SIMON Calcium Carbonate (Calcium Carbonate 750 Mg Tab.Chew) 750 mg PO Q4H PRN PRN Reason: Heartburn Enoxaparin Sodium (Enoxaparin Sodium 40 Mg/0.4 Ml Syringe) 40 mg SUBCUT Q24H [facility] Last Admin: 09/04/23 12:56 Dose: Not Given Documented By: SERENITY Non-Admin Reason: Patient Asleep Hydromorphone HCl (Hydromorphone Hcl 0.5 Mg/0.5 Ml Syringe) 0.5 mg IVPUSH Q4H PRN; Protocol PRN Reason: Pain, Severe (Pain Scale 7-10) Vancomycin HCl 1,000 mg/ (Sodium Chloride) 270 mls @ 270 mls/hr IV Q12H [facility] Last Admin: 09/05/23 09:32 Dose: 270 mls/hr Documented By: ANITA Magnesium Hydroxide (Milk Of Magnesia 30 Ml Oral.Susp) 30 ml PO DAILY PRN PRN Reason: Constipation Melatonin (Melatonin 3 Mg Tablet) 6 mg PO BEDTIME PRN PRN Reason: Insomnia Ondansetron HCl (Ondansetron Hcl 4 Mg/2 Ml Vial) 4 mg IVPUSH Q8H PRN PRN Reason: Nausea and Vomiting Oxycodone HCl (Oxycodone Hcl Immed Release 5 Mg Tablet) 5 mg PO Q4H PRN PRN Reason: Pain, Moderate(Pain Scale 4-6) Pharmacy Consult (Consult Rx Vancomycin Dosing) 1 each MISCELLANE DAILY PRN PRN Reason: Consult order Sodium Chloride (0.9 % Sodium Chloride Flush 3 Ml Syringe) [facility] Last Admin: 09/05/23 09:32 Dose: 3 ml Documented By: ANITA Labs 09/05/23 05:26 09/05/23 05:26 Labs: Laboratory Results - last 24 hr 09/04/23 09/05/23 11:29 05:26 MCV 81.0 MCH 26.5 L MCHC 32.8 RDW 17.9 H Plt Count 140 L MPV 10.4 Immature Gran % (Auto) 1.0 H Neut % (Auto) 46.5 Lymph % (Auto) 37.0 [place] % (Auto) 10.9 Eos % (Auto) 3.9 Baso % (Auto) 0.7 Lymph # (Auto) 3.1 [place] # (Auto) 0.9 Eos # (Auto) 0.3 Baso # (Auto) 0.1 Abs Immat Gran (auto) 0.08 H Absolute Neuts (auto) 3.9 Absolute Nucleated RBC 0.000 Nucleated RBC % (auto) 0.0 Anion Gap 13 Estim Creat Clear Calc 102.3 Estimated GFR > 60 Random Glucose 136 H Calcium 8.3 L D Urine Color Yellow Urine Appearance Clear Urine pH 6.0 Ur Specific Story >= 1.030 H Urine Protein 30 (1+) H Urine Glucose (UA) Negative Urine Ketones Negative Urine Blood Small (1+) H Urine Nitrite Negative Ur Leukocyte Esterase Small (1+) H Urine RBC 3-5 H Urine WBC 0-5 Ur Squamous Epith Cells 3-5 Urine Bacteria Trace Hyaline Casts 0-2 Urine Test NEGATIVE Urine Opiates Screen Not Detected Ur Buprenorphine Scrn Not Detected Ur Oxycodone Screen Not Detected Urine Methadone Screen Positive H Urine Fentanyl Screen POSITIVE H Ur Barbiturates Screen Not Detected Ur Phencyclidine Scrn Not Detected Ur Amphetamines Screen Not Detected U Benzodiazepines Scrn Not Detected Urine Cocaine Screen POSITIVE H U Marijuana (THC) Screen Not Detected Microbiology Microbiology Results: Microbiology 09/04/23 08:29 Blood Culture - Preliminary Blood - Venous No growth after 24 hours. 09/04/23 08:29 Blood Culture - Preliminary Blood - Venous No growth after 24 hours. 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 #. Right leg cellulitis: Continue IV vancomycin (start date: 09/03). Monitor for improvement. No sepsis. #. Elevated liver enzymes: Outpatient follow-up #. Polysubstance use disorder: Monitor for withdrawal. Consulted Addiction Team. Initiated methadone 50 mg daily DVT prophylaxis: Lovenox Full code Reason for continued hospitalization: IV antibiotics (as above), which is not possible in a lesser acute setting. Quality Stroke Does the patient have a stroke diagnosis?: No VTE Prior VTE?: No VTE Risk Level:: Medical - moderate - high VTE Device Contraindication: Treatment Not Indicated VTE Drug Contraindication: N/A - Med Ordered
[2023-09-05] MEDS: Acetaminophen 325 MG TABLET 650 MG PO ×2 (11:05→16:55)
[2023-09-05] MEDS: oxyCODONE HCl Immed Release 5 MG TABLET PO ×2 (11:05→16:55)
--- NOTE | 2023-09-05 11:59 | PC.NURSE ---
prn Tylenol 650 mg and prn oxycodone 5 mg administered to pt for 10/10 pain at pt request
--- NOTE | 2023-09-05 13:15 | MHC.CM.PN ---
PT REPORTS SHE IS HOMELESS AND TYPICALLY STAYS ON THE STREETS SHE DOES USE [facility] [place] [facility] AT TIMES SHE HAS NO HCP, NO PCP AND NO HEALTH INSURANCE SHE IS AWARE A REFERRAL WAS SENT TO [facility] [place] FS PT REPORTS SHE IS INTERESTED IN [facility] TREATMENT POST DC, HOWEVER WOULD LIKE TO DC TO HER FRIENDS HOME AND THEN FOLLOW UP ON ANY REFERRALS MADE BY [facility]. SHE CONFIRMS SHE HAS SPOKEN TO SOMEONE FROM [facility] ALREADY PT BELIEVES SHE WILL HAVE A RIDE AT DC
[2023-09-05 15:17] VITALS: BP 127/83; PULSE 59; RESP 18; TEMP 36.1; O2SAT 97
--- NOTE | 2023-09-05 16:57 | PC.NURSE ---
prn 650 tylenol and 5 oxycodone given per pt request
[2023-09-05 19:40] VITALS: BP 119/72; PULSE 71; RESP 18; TEMP 36.3; O2SAT 98
[2023-09-05 20:03] LABS: Vancomycin Random 8.7 mcg/mL (15-20)
[2023-09-05] MEDS: Melatonin 3 MG TABLET 6 MG PO (21:17)
[2023-09-05] MEDS: vancomycin HCL 1,500 MG in 0.9 % Sodium Chloride 500 ML 333.33 MG IV (21:17)
[2023-09-05 23:46] VITALS: BP 110/69; PULSE 68; RESP 18; TEMP 36.4; O2SAT 95
[2023-09-06 03:55] VITALS: BP 139/96; PULSE 78; RESP 16; TEMP 36.8; O2SAT 97
[2023-09-06 07:53] VITALS: BP 141/101; PULSE 72; RESP 18; TEMP 36.1; O2SAT 97
[2023-09-06] MEDS: Acetaminophen 325 MG TABLET 650 MG PO (08:08)
[2023-09-06] MEDS: oxyCODONE HCl Immed Release 5 MG TABLET PO ×3 (08:09→20:50)
[2023-09-06] MEDS: methADONE HCl 20 MG/2 ML ORAL.CONC 50 MG PO (08:09)
[2023-09-06] MEDS: 0.9 % Sodium Chloride Flush 3 ML SYRINGE IVFLUSH ×3 (08:09→20:51)
[2023-09-06] MEDS: vancomycin HCL 1,500 MG in 0.9 % Sodium Chloride 500 ML 333 MG IV (08:10)
[2023-09-06 09:08] LABS: Creatinine Clr Calc Pharmacy 94.9; Estimated Glomerular Filt Rate > 60
--- NOTE | 2023-09-06 09:23 | PC.NURSE ---
prn 650 tylenol and 5 oxycodone given per pt request
--- NOTE | 2023-09-06 12:07 | MHC.RECOVRN ---
Met with pt in 380 to follow up and provide support.? Pt awake, lethargic but easily engages in conversation and answering questions appropriately. Lying in bed resting. Pt reports feeling better, however, is still experiencing withdrawal symptoms later in the evening to include aches and chills.? Pt's COWS score this AM was 0. Pt denies other concerns at this time. T/W spoke with pt's nurse Charlene as well as [facility] nurse Swati and requested an order for an additional 5mg methadone in the evening. Will check in tomorrow to assess effectiveness if MD approves.? T/w available as needed.
[2023-09-06 15:41] VITALS: BP 134/92; PULSE 70; RESP 12; TEMP 37; O2SAT 97
--- NOTE | 2023-09-06 18:18 | P.PNIM_ITS ---
Subjective Subjective Date of Service: 09/06/23 Interval History: No acute issues overnight. Slowly improving Review of Systems Denies chest pain Denies shortness of breath Denies nausea vomiting diarrhea Denies fever chills Constitutional Constitutional: Reports no additional constitutional complaints Cardiovascular Cardiovascular: Reports no additional cardiovascular complaints Respiratory Respiratory: Reports no additional respiratory complaints Gastrointestinal Gastrointestinal: Reports no additional gastrointestinal complaints Physical Exam 2 Vital Signs: Vital Signs: Last Vital Signs Temp 98.6 F 09/06/23 15:41 Pulse 70 09/06/23 15:41 Resp 12 09/06/23 15:41 BP 134/92 H 09/06/23 15:41 Pulse Ox 97 09/06/23 15:41 O2 Del Method Room Air 09/06/23 15:41 O2 Flow Rate 2 09/05/23 05:37 BMI result Body Mass Index 27.5 Const: Other: Awake alert no acute distress Resp: Other: Clear to auscultation bilaterally no rales rhonchi or wheezes Cardio: Other: No S4; positive S1-S2; no S3 2/6 systolic murmur best heard at apex GI: Other: Soft nontender nondistended normoactive bowel sounds Skin: Other: Objective Data Active Medications Acetaminophen (Acetaminophen 325 Mg Tablet) 650 mg PO Q6H PRN PRN Reason: Pain, Mild (Pain Scale 1-3), fever or headache Last Admin: 09/06/23 08:08 Dose: 650 mg Documented By: ANITA Calcium Carbonate (Calcium Carbonate 750 Mg Tab.Chew) 750 mg PO Q4H PRN PRN Reason: Heartburn Enoxaparin Sodium (Enoxaparin Sodium 40 Mg/0.4 Ml Syringe) 40 mg SUBCUT Q24H [facility] Last Admin: 09/06/23 12:16 Dose: Not Given Documented By: ANITA Non-Admin Reason: Patient Refused Hydromorphone HCl (Hydromorphone Hcl 0.5 Mg/0.5 Ml Syringe) 0.5 mg IVPUSH Q4H PRN; Protocol PRN Reason: Pain, Severe (Pain Scale 7-10) Vancomycin HCl 1,500 mg/ (Sodium Chloride) 500 mls @ 333.333 mls/hr IV Q12H [facility] Last Infusion: 09/06/23 09:50 Dose: Infused Documented By: ANITA Magnesium Hydroxide (Milk Of Magnesia 30 Ml Oral.Susp) 30 ml PO DAILY PRN PRN Reason: Constipation Melatonin (Melatonin 3 Mg Tablet) 6 mg PO BEDTIME PRN PRN Reason: Insomnia Last Admin: 09/05/23 21:17 Dose: 6 mg Documented By: LEVON Methadone HCl (Methadone Hcl 20 Mg/2 Ml Oral.Conc) 50 mg PO DAILY [facility] Last Admin: 09/06/23 08:09 Dose: 50 mg Documented By: ANITA Ondansetron HCl (Ondansetron Hcl 4 Mg/2 Ml Vial) 4 mg IVPUSH Q8H PRN PRN Reason: Nausea and Vomiting Oxycodone HCl (Oxycodone Hcl Immed Release 5 Mg Tablet) 5 mg PO Q4H PRN PRN Reason: Pain, Moderate(Pain Scale 4-6) Last Admin: 09/06/23 16:12 Dose: 5 mg Documented By: ANITA Pharmacy Consult (Consult Rx Vancomycin Dosing) 1 each MISCELLANE DAILY PRN PRN Reason: Consult order Sodium Chloride (0.9 % Sodium Chloride Flush 3 Ml Syringe) [facility] Last Admin: 09/06/23 15:53 Dose: 3 ml Documented By: ANITA Labs 09/05/23 05:26 09/06/23 08:40 Labs: Laboratory Results - last 24 hr 09/05/23 09/06/23 19:30 08:40 Estim Creat Clear Calc 94.9 Estimated GFR > 60 Random Vancomycin 8.7 L Microbiology Microbiology Results: Microbiology 09/04/23 08:29 Blood Culture - Preliminary Blood - Venous No growth after 48 hours. 09/04/23 08:29 Blood Culture - Preliminary Blood - Venous No growth after 48 hours. 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 1.Right leg cellulitis -vancomycin (2) -if no improvement in a.m. .. Id consult 2.Polysubstance use disorder -methadone as per addiction Medicine 3. Cardiac murmur -check echo Lovenox Full code Reason for continued hospitalization: IV antibiotics (as above), which is not possible in a lesser acute setting. Quality Stroke Does the patient have a stroke diagnosis?: No VTE Prior VTE?: No VTE Risk Level:: Medical - moderate - high VTE Device Contraindication: Treatment Not Indicated VTE Drug Contraindication: N/A - Med Ordered
[2023-09-06 19:54] LABS: Vancomycin Random 12.9 mcg/mL (15-20)
[2023-09-06] MEDS: Melatonin 3 MG TABLET 6 MG PO (20:50)
[2023-09-06] MEDS: vancomycin HCL 1,500 MG in 0.9 % Sodium Chloride 500 ML 333.33 MG IV (20:51)
[2023-09-07] VITALS: BP 130/87; PULSE 73; RESP 16; TEMP 36.1; O2SAT 98
[2023-09-07 07:25] VITALS: BP 143/94; PULSE 70; RESP 16; TEMP 36.6; O2SAT 96
[2023-09-07] MEDS: 0.9 % Sodium Chloride Flush 3 ML SYRINGE IVFLUSH ×3 (08:11→20:21)
[2023-09-07] MEDS: vancomycin HCL 1,500 MG in 0.9 % Sodium Chloride 500 ML 333.33 MG IV ×2 (08:11→20:21)
[2023-09-07] MEDS: methADONE HCl 20 MG/2 ML ORAL.CONC 50 MG PO (08:11)
[2023-09-07 10:47] LABS: MANUAL DIFF FLAG NO
[2023-09-07 10:59] LABS: Basophils Absolute Auto 0.1 X10*3/uL (0.0-0.2); Basophils Percent Auto 1.2 % (0-2); Eosinophils Absolute Auto 0.3 X10*3/uL (0.0-0.4); Eosinophils Percent Auto 4.7 % (0-4); Hematocrit 40.1 % (37.0-47.0); Hemoglobin 12.7 g/dl (12.0-16.0); Imm Gran Abs Auto 0.06 X10*3/uL (0.00-0.03); Imm Gran Pct Auto 0.9 % (0.0-0.4); Lymphocytes Absolute Auto 2.5 X10*3/uL (1.2-4.9); Lymphocytes Percent Auto 37.8 % (20-40); Mean Corpuscular HGB Conc 31.7 g/dl (31.0-35.0); Mean Corpuscular Hemoglobin 26.4 pg (27.0-33.0); Mean Corpuscular Volume 83.4 fL (80.0-98.0); Mean Platelet Volume 9.7 fL (9.4-12.3); Monocytes Absolute Auto 0.7 X10*3/uL (0.1-1.2); Neutrophils Percent Auto 45.4 % (45-73); Platelet Count 214 X10*3/uL (160-400); Red Blood Count 4.81 X10*6/uL (4.20-5.50); White Blood Count 6.6 X10*3/uL (4.8-10.8)
[2023-09-07 11:18] LABS: Alanine Aminotransferase 35 U/L (0-31); Albumin Level 2.7 g/dL (3.5-5.0); Alkaline Phosphatase 98 U/L (39-117); Anion Gap 14 (12-20); Aspartate Amino Transferase 36 U/L (5-31); Bilirubin Total 0.7 mg/dL (0.0-1.0); Blood Urea Nitrogen 8 mg/dL (9-16); Calcium 7.9 mg/dL (8.4-10.2); Carbon Dioxide 22 mmol/L (22-29); Chloride 108 mmol/L (96-108); Creatinine Clr Calc Pharmacy 97.8; Estimated Glomerular Filt Rate > 60; Glucose Fasting 100 mg/dL (60-99); Potassium 4.1 mmol/L (3.3-5.1); Sodium 140 mmol/L (135-145)
--- NOTE | 2023-09-07 11:34 | MHC.RECOVRN ---
Met with pt in 380 to follow up and provide support.? Pt sitting in bed resting comfortably. Pt reports feeling o.k. . She reports that she again did not sleep well due to restlessness and overall body aches. Recommended methadone 5mg QPM did not start yet. No W/D observed during visit. Pt is getting good pain control with the current oxycodone order. Pt denies other concerns at this time.? T/w available as needed. I spoke with pt's nurse Almita and again requested the 5mg increase in methadone for which she was going to message provider.
[2023-09-07] MEDS: oxyCODONE HCl Immed Release 5 MG TABLET PO ×2 (12:05→20:28)
--- NOTE | 2023-09-07 13:22 | P.PNIM_ITS ---
Subjective Subjective Date of Service: 09/07/23 Interval History: No acute issues overnight. Minimal improvement in leg. Methadone adequate to cover symptoms Review of Systems Denies chest pain Denies shortness of breath Denies nausea vomiting diarrhea Denies fever chills Constitutional Constitutional: Reports no additional constitutional complaints Cardiovascular Cardiovascular: Reports no additional cardiovascular complaints Respiratory Respiratory: Reports no additional respiratory complaints Gastrointestinal Gastrointestinal: Reports no additional gastrointestinal complaints Physical Exam 2 Vital Signs: Vital Signs: Last Vital Signs Temp 97.9 F 09/07/23 07:25 Pulse 70 09/07/23 07:25 Resp 16 09/07/23 07:25 BP 143/94 H 09/07/23 07:25 Pulse Ox 96 09/07/23 07:25 O2 Del Method Room Air 09/07/23 07:25 O2 Flow Rate 2 09/05/23 05:37 BMI result Body Mass Index 27.5 Const: Other: Awake alert no acute distress Resp: Other: Clear to auscultation bilaterally no rales rhonchi or wheezes Cardio: Other: No S4; positive S1-S2; no S3 2/6 systolic murmur best heard at apex GI: Other: Soft nontender nondistended normoactive bowel sounds Skin: Other: Objective Data Active Medications Acetaminophen (Acetaminophen 325 Mg Tablet) 650 mg PO Q6H PRN PRN Reason: Pain, Mild (Pain Scale 1-3), fever or headache Last Admin: 09/06/23 08:08 Dose: 650 mg Documented By: ANITA Calcium Carbonate (Calcium Carbonate 750 Mg Tab.Chew) 750 mg PO Q4H PRN PRN Reason: Heartburn Enoxaparin Sodium (Enoxaparin Sodium 40 Mg/0.4 Ml Syringe) 40 mg SUBCUT Q24H [facility] Last Admin: 09/07/23 12:02 Dose: Not Given Documented By: FACUNDO Non-Admin Reason: Patient Refused Hydromorphone HCl (Hydromorphone Hcl 0.5 Mg/0.5 Ml Syringe) 0.5 mg IVPUSH Q4H PRN; Protocol PRN Reason: Pain, Severe (Pain Scale 7-10) Vancomycin HCl 1,500 mg/ (Sodium Chloride) 500 mls @ 333.333 mls/hr IV Q12H [facility] Last Infusion: 09/07/23 09:42 Dose: Infused Documented By: FACUNDO Magnesium Hydroxide (Milk Of Magnesia 30 Ml Oral.Susp) 30 ml PO DAILY PRN PRN Reason: Constipation Melatonin (Melatonin 3 Mg Tablet) 6 mg PO BEDTIME PRN PRN Reason: Insomnia Last Admin: 09/06/23 20:50 Dose: 6 mg Documented By: LEVON Methadone HCl (Methadone Hcl 20 Mg/2 Ml Oral.Conc) 50 mg PO DAILY [facility] Last Admin: 09/07/23 08:11 Dose: 50 mg Documented By: FACUNOD Methadone HCl (Methadone Hcl 20 Mg/2 Ml Oral.Conc) 5 mg PO BEDTIME [facility] Ondansetron HCl (Ondansetron Hcl 4 Mg/2 Ml Vial) 4 mg IVPUSH Q8H PRN PRN Reason: Nausea and Vomiting Oxycodone HCl (Oxycodone Hcl Immed Release 5 Mg Tablet) 5 mg PO Q4H PRN PRN Reason: Pain, Moderate(Pain Scale 4-6) Last Admin: 09/07/23 12:05 Dose: 5 mg Documented By: FACUNDO Pharmacy Consult (Consult Rx Vancomycin Dosing) 1 each MISCELLANE DAILY PRN PRN Reason: Consult order Sodium Chloride (0.9 % Sodium Chloride Flush 3 Ml Syringe) 3 ml IVFLUSH QSHIFT [facility] Last Admin: 09/07/23 08:11 Dose: 3 ml Documented By: FACUNDO Labs 09/07/23 10:36 09/07/23 10:36 Labs: Laboratory Results - last 24 hr 09/06/23 09/07/23 19:10 10:36 MCV 83.4 MCH 26.4 L MCHC 31.7 RDW 18.0 H Plt Count 214 D MPV 9.7 Immature Gran % (Auto) 0.9 H Neut % (Auto) 45.4 Lymph % (Auto) 37.8 [place] % (Auto) 10.0 Eos % (Auto) 4.7 H Baso % (Auto) 1.2 Lymph # (Auto) 2.5 [place] # (Auto) 0.7 Eos # (Auto) 0.3 Baso # (Auto) 0.1 Abs Immat Gran (auto) 0.06 H Absolute Neuts (auto) 3.0 Absolute Nucleated RBC 0.000 Nucleated RBC % (auto) 0.0 Anion Gap 14 Estim Creat Clear Calc 97.8 Estimated GFR > 60 Fasting Glucose 100 H Calcium 7.9 L Total Bilirubin 0.7 AST 36 H ALT 35 H Alkaline Phosphatase 98 Total Protein 7.0 Albumin 2.7 L Random Vancomycin 12.9 L Microbiology Microbiology Results: Microbiology 09/04/23 08:29 Blood Culture - Preliminary Blood - Venous No growth after 48 hours. 09/04/23 08:29 Blood Culture - Preliminary Blood - Venous No growth after 48 hours. 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 1.Right leg cellulitis -vancomycin (2) -will ask ID input 2.Polysubstance use disorder -methadone as per addiction Medicine -5 mg added at HS as per recommendation 3. Cardiac murmur -check echo Lovenox Full code Reason for continued hospitalization: IV antibiotics (as above), which is not possible in a lesser acute setting. Quality Stroke Does the patient have a stroke diagnosis?: No VTE Prior VTE?: No VTE Risk Level:: Medical - moderate - high VTE Device Contraindication: Treatment Not Indicated VTE Drug Contraindication: N/A - Med Ordered
[2023-09-07 15:24] VITALS: BP 136/76; PULSE 69; RESP 18; TEMP 36.5; O2SAT 97
[2023-09-07 19:47] LABS: Vancomycin Random 14.2 mcg/mL (15-20)
[2023-09-07] MEDS: methADONE HCl 20 MG/2 ML ORAL.CONC 5 MG PO (20:20)
[2023-09-07] MEDS: Melatonin 3 MG TABLET 6 MG PO (21:29)
[2023-09-07 23:21] VITALS: BP 133/86; PULSE 65; RESP 17; TEMP 37.1; O2SAT 95
[2023-09-08 06:07] LABS: MANUAL DIFF FLAG NO
[2023-09-08 06:47] LABS: Alanine Aminotransferase 34 U/L (0-31); Albumin Level 2.7 g/dL (3.5-5.0); Alkaline Phosphatase 107 U/L (39-117); Anion Gap 15 (12-20); Aspartate Amino Transferase 38 U/L (5-31); Basophils Absolute Auto 0.1 X10*3/uL (0.0-0.2); Basophils Percent Auto 1.3 % (0-2); Bilirubin Total 0.7 mg/dL (0.0-1.0); Blood Urea Nitrogen 9 mg/dL (9-16); Carbon Dioxide 22 mmol/L (22-29); Chloride 107 mmol/L (96-108); Eosinophils Absolute Auto 0.4 X10*3/uL (0.0-0.4); Estimated Glomerular Filt Rate > 60; Glucose Fasting 69 mg/dL (60-99); Hematocrit 42.6 % (37.0-47.0); Hemoglobin 13.1 g/dl (12.0-16.0); Imm Gran Pct Auto 1.6 % (0.0-0.4); Lymphocytes Absolute Auto 2.7 X10*3/uL (1.2-4.9); Lymphocytes Percent Auto 43.1 % (20-40); Mean Corpuscular HGB Conc 30.8 g/dl (31.0-35.0); Mean Corpuscular Volume 84.7 fL (80.0-98.0); Mean Platelet Volume 10.3 fL (9.4-12.3); Monocytes Absolute Auto 0.7 X10*3/uL (0.1-1.2); Monocytes Percent Auto 11.8 % (2-11); Neutrophils Absolute Auto 2.3 x10*3/uL (2.0-8.3); Neutrophils Percent Auto 36.2 % (45-73); Platelet Count 194 X10*3/uL (160-400); Potassium 4.5 mmol/L (3.3-5.1); Red Blood Count 5.03 X10*6/uL (4.20-5.50); Red Cell Distribution Width 18.1 % (11.0-16.0); Sodium 139 mmol/L (135-145); White Blood Count 6.2 X10*3/uL (4.8-10.8)
--- NOTE | 2023-09-08 07:00 | CA_ITS ---
Transthoracic Echocardiogram Patient (Last, First, Middle): Lili Khan, Gender: Female Date of : 1990 Age: 33 Procedure Date: 09/08/2023 Procedure Type: Transthoracic Echocardiogram Location: S3W Height: 152.4 cm Weight: 63.5 kg BSA: 1.60 m2 Heart Rate: 65 bpm BP: 136 / 106 mmHg Scouring Pads Supervisor: SB Referring MD: James Lora DO Automation Qtp Tester: Julian Mortensen MD Symptoms: murmur Study Quality: Adequate ECG Rhythm: Sinus Conclusions: - 1. Severe tricuspid regurgitation 2. Dilated right-sided chambers with severely dilated right atrium 3. Normal LV systolic and diastolic function 4. Normal measured RV systolic pressure 5. No gross pericardial effusion Findings Left Ventricle Normal left ventricular size, thickness, and systolic function. The visually estimated ejection fraction is between 60-65%. There is a flattened septum in diastole ( D shaped left ventricle) consistent with right ventricular volume overload. Spectral Doppler is indicative of a normal filling pattern. Right Ventricle Moderately increased right ventricular cavity size. There is low normal right ventricular systolic function. Atria The left atrium is normal in size. There is no evidence of interatrial shunt. The right atrium is severely dilated. Aortic Valve Normal aortic valve structure and function. There is no aortic valve stenosis. There is no aortic valve regurgitation. Mitral Valve Normal mitral valve structure and function. There is trace mitral valve regurgitation. There is no mitral valve stenosis. Pulmonic Valve The pulmonic valve is likely normal. There is trace pulmonic valve regurgitation. Tricuspid Valve There is severe tricuspid valve regurgitation. The tricuspid regurgitation jet is directed centrally. The right ventricular systolic pressure is 28 mmHg. on some views there appears to be poor coaptation of leaflets Great Vessels All visible segments of the aorta are normal in size. The pulmonary artery was not well visualized. Venous The inferior vena cava is mildly dilated and collapses less than 50% with inspiration. Hepatic vein flow indicates systolic flow reversal. Pericardium/Pleural There is no evidence of pericardial effusion. Prior Study Comparison No prior study available for comparison. Measurements 2D Linear Measurements IVSd: 0.94 0.6-0.9/0.6-1.0 cm LVIDd: 4.48 3.9-5.3/4.2-5.9 cm LVIDd Index: 2.80 2.4-3.2/2.2-3.1 cm/m2 LVIDs: 2.88 2.0-3.6 cm LVPWd: 0.80 0.7-1.1 cm LA Diam: 4.20 2.7-3.8/3.0-4.0 cm LAIDs Index: 2.63 1.5-2.3 cm/m2 LV Mass: 156.39 67-162/88-224 g LV Mass Index: 97.75 43-95/49-115 g/m2 LVOT Diam: 2.00 3.0+(-)1.3 cm 2D Systolic Function EF 4C: 62.90 >55% EF 2C: 64.20 >55% EF BiP: 63.70 >55% Mitral Valve MV Pk E: 0.73 MV PK A: 0.51 MV Decel Time: 127.00 E/A: 1.40 E'Lateral: 13.20 E'Medial: 10.60 E/E' Med: 6.90 E/E' Lat: 5.60 PHT: 37.00 MVA PHT: 5.95 Decel [place]: 5.81 Aortic Valve AoV Pk Brennen: 1.50 AoV Pk Grad: 9.00 JOHNY: 2.35 LVOT LVOT Pk Brennen: 1.12 LVOT Mn Brennen: 0.80 LVOT VTI: 0.21 LVOT Pk Grad: 5.00 LVOT Mn Grad: 3.00 LVOT Diam: 2.00 LVOT Area: 3.14 Diastolic Function MV Pk E: 0.73 MV Pk A: 0.51 E/A: 1.40 E'Medial: 10.60 E/E' Med: 6.90 E' Laterial: 13.20 E/E' Lat: 5.60 Right Ventricle TAPSE (mm): 35.90 TVS' Brennen: 19.10 Tricuspid Valve TR Pk Brennen: 2.22 TR Pk Grad: 20.00 RA Press: 8.00 RVSP: 28.00 Great Vessels Aorta Sinus of Valsalva: 2.20 2.0-3.5 cm Ao Asc: 2.50 2.1-3.4 cm Pulmonary Veins Pulm Vein S/D 1.90 Pulmonary Valve PV Pk Brennen: 0.94 Peak PV Grad: 4.00 Updated in Other Vendor System with Status of Final Julian Mortensen MD electronically signed on 09/08/2023 4:42:11 PM with status of Final
[2023-09-08] MEDS: oxyCODONE HCl Immed Release 5 MG TABLET PO ×3 (07:09→23:12)
[2023-09-08] MEDS: 0.9 % Sodium Chloride Flush 3 ML SYRINGE IVFLUSH ×3 (07:10→20:55)
[2023-09-08 07:52] VITALS: BP 136/106; PULSE 68; RESP 16; TEMP 36.4; O2SAT 95
[2023-09-08] MEDS: vancomycin HCL 1,500 MG in 0.9 % Sodium Chloride 500 ML 333.33 MG IV (08:16)
[2023-09-08] MEDS: methADONE HCl 20 MG/2 ML ORAL.CONC 50 MG PO (08:16)
--- NOTE | 2023-09-08 11:58 | MHC.RECOVRN ---
Met with pt in 380 to follow up and provide support. Pt laying in bed, awake, alert, engages in conversation. Pt reports continued inability to sleep at night, reports restlessness and chills. Requesting increase in PM methadone dose. Pt reports she had been on methadone while in shelter in March, 100 mg daily. Reports she did not continue when she was released. Pt would like to be connected to [facility] to continue [place] [facility] [place] Denies other questions or concerns.
--- NOTE | 2023-09-08 12:35 | HO.PM.IMPN ---
Subjective Subjective Date of Service: 09/08/23 Interval History: remains afebrile. White count flat. States pain is improved slightly. Review of Systems Denies chest pain Denies shortness of breath Denies nausea vomiting diarrhea Denies fever chills Constitutional Constitutional: Reports no additional constitutional complaints Cardiovascular Cardiovascular: Reports no additional cardiovascular complaints Respiratory Respiratory: Reports no additional respiratory complaints Gastrointestinal Gastrointestinal: Reports no additional gastrointestinal complaints Physical Exam Vital Signs: Vital Signs: Last Vital Signs Temp 97.5 F 09/08/23 07:52 Pulse 68 09/08/23 07:52 Resp 16 09/08/23 07:52 BP 136/106 H 09/08/23 07:52 Pulse Ox 95 09/08/23 07:52 O2 Del Method Room Air 09/08/23 07:52 O2 Flow Rate 2 09/05/23 05:37 BMI result Body Mass Index 27.5 Const: Other: Awake alert no acute distress Resp: Other: Clear to auscultation bilaterally no rales rhonchi or wheezes Cardio: Other: No S4; positive S1-S2; no S3 2/6 systolic murmur best heard at apex GI: Other: Soft nontender nondistended normoactive bowel sounds Skin: Other: Objective Data Active Medications Acetaminophen (Acetaminophen 325 Mg Tablet) 650 mg PO Q6H PRN PRN Reason: Pain, Mild (Pain Scale 1-3), fever or headache Last Admin: 09/06/23 08:08 Dose: 650 mg Documented By: ANITA Calcium Carbonate (Calcium Carbonate 750 Mg Tab.Chew) 750 mg PO Q4H PRN PRN Reason: Heartburn Enoxaparin Sodium (Enoxaparin Sodium 40 Mg/0.4 Ml Syringe) 40 mg SUBCUT Q24H FOR[facility]LY [facility], [facility]1983 Last Admin: 09/08/23 11:03 Dose: Not Given Documented By: PADMINI Non-Admin Reason: Patient Refused Hydromorphone HCl (Hydromorphone Hcl 0.5 Mg/0.5 Ml Syringe) 0.5 mg IVPUSH Q4H PRN; Protocol PRN Reason: Pain, Severe (Pain Scale 7-10) Vancomycin HCl 1,500 mg/ (Sodium Chloride) 500 mls @ 333.333 mls/hr IV Q12H FOR[facility]LY [facility], [facility]1983 Last Infusion: 09/08/23 10:14 Dose: Infused Documented By: PADMINI Magnesium Hydroxide (Milk Of Magnesia 30 Ml Oral.Susp) 30 ml PO DAILY PRN PRN Reason: Constipation Melatonin (Melatonin 3 Mg Tablet) 6 mg PO BEDTIME PRN PRN Reason: Insomnia Last Admin: 09/07/23 21:29 Dose: 6 mg Documented By: LEVON Methadone HCl (Methadone Hcl 20 Mg/2 Ml Oral.Conc) 50 mg PO DAILY FOR[facility]LY [facility], [facility] Last Admin: 09/08/23 08:16 Dose: 50 mg Documented By: PADDY Methadone HCl (Methadone Hcl 20 Mg/2 Ml Oral.Conc) 5 mg PO BEDTIME FOR[facility]LY [facility], [facility] Last Admin: 09/07/23 20:20 Dose: 5 mg Documented By: LEVON Ondansetron HCl (Ondansetron Hcl 4 Mg/2 Ml Vial) 4 mg IVPUSH Q8H PRN PRN Reason: Nausea and Vomiting Oxycodone HCl (Oxycodone Hcl Immed Release 5 Mg Tablet) 5 mg PO Q4H PRN PRN Reason: Pain, Moderate(Pain Scale 4-6) Last Admin: 09/08/23 11:02 Dose: 5 mg Documented By: PADMINI Pharmacy Consult (Consult Rx Vancomycin Dosing) 1 each MISCELLANE DAILY PRN PRN Reason: Consult order Sodium Chloride (0.9 % Sodium Chloride Flush 3 Ml Syringe) 3 ml IVFLUSH QSHIFT FOR[facility], [facility] Last Admin: 09/08/23 07:10 Dose: 3 ml Documented By: PADMINI Labs 09/08/23 05:05 09/08/23 05:05 Labs: Laboratory Results - last 24 hr 09/07/23 09/08/23 19:03 05:05 MCV 84.7 MCH 26.0 L MCHC 30.8 L RDW 18.1 H Plt Count 194 MPV 10.3 Immature Gran % (Auto) 1.6 H Neut % (Auto) 36.2 L Lymph % (Auto) 43.1 H [place] % (Auto) 11.8 H Eos % (Auto) 6.0 H Baso % (Auto) 1.3 Lymph # (Auto) 2.7 [place] # (Auto) 0.7 Eos # (Auto) 0.4 Baso # (Auto) 0.1 Abs Immat Gran (auto) 0.10 H Absolute Neuts (auto) 2.3 Absolute Nucleated RBC 0.000 Nucleated RBC % (auto) 0.0 Anion Gap 15 Estim Creat Clear Calc 111.0 Estimated GFR > 60 Fasting Glucose 69 Calcium 8.0 L Total Bilirubin 0.7 AST 38 H ALT 34 H Alkaline Phosphatase 107 Total Protein 7.0 Albumin 2.7 L Random Vancomycin 14.2 L Assessment and Plan (1) Cellulitis: Status: Acute Plan This is a 33-year-old female with pertinent history of IV drug use disorder, 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 1.Right leg cellulitis -vancomycin (3) -will ask ID input 2.Polysubstance use disorder -methadone as per addiction Medicine -increase to 10 mg at HS as per recommendation 3. Cardiac murmur -check echo Lovenox Full code Reason for continued hospitalization: IV antibiotics (as above), which is not possible in a lesser acute setting. Quality Stroke Does the patient have a stroke diagnosis?: No VTE Prior VTE?: No VTE Risk Level:: Medical - moderate - high VTE Device Contraindication: Treatment Not Indicated VTE Drug Contraindication: N/A - Med Ordered
--- NOTE | 2023-09-08 13:16 | MHC.RECOVRN ---
Pts referral sent to [facility].
[2023-09-08 15:49] VITALS: BP 159/98; PULSE 69; RESP 16; TEMP 36.1; O2SAT 95
[2023-09-08 16:00] VITALS: PULSE 69
[2023-09-08] MEDS: HYDROmorphone HCl 0.5 MG/0.5 ML SYRINGE IVPUSH ×2 (16:42→20:55)
[2023-09-08] MEDS: Docusate Sodium 100 MG CAPSULE PO ×2 (16:42→20:21)
[2023-09-08 18:27] VITALS: BP 147/91
[2023-09-08 19:56] LABS: Vancomycin Random 19.5 mcg/mL (15-20)
--- NOTE | 2023-09-08 20:13 | HE.PHANOTE ---
RE [facility] Patients level came back this morning at 19.5. Will decrease patients dose to 1250 mg Q12H, indication is SSTI. Pushed back dosing by 2 hours, wanted to push back dosing a little more but timing is difficult for level to be read by in house pharmacy. Will get next level tomorrow at 2100. Predicted AUC 435
[2023-09-08] MEDS: methADONE HCl 20 MG/2 ML ORAL.CONC 10 MG PO (20:21)
[2023-09-08] MEDS: Melatonin 3 MG TABLET 6 MG PO (20:21)
[2023-09-08] MEDS: vancomycin HCL 1,250 MG in 0.9 % Sodium Chloride 250 ML 166.67 MG IV (22:00)
[2023-09-08 23:57] VITALS: BP 139/94; PULSE 68; RESP 16; TEMP 36.8; O2SAT 97
[2023-09-09] VITALS: PULSE 68
[2023-09-09 06:24] LABS: MANUAL DIFF FLAG NO
[2023-09-09 06:45] LABS: Basophils Absolute Auto 0.1 X10*3/uL (0.0-0.2); Basophils Percent Auto 1.6 % (0-2); Eosinophils Absolute Auto 0.3 X10*3/uL (0.0-0.4); Eosinophils Percent Auto 6.4 % (0-4); Hematocrit 39.8 % (37.0-47.0); Hemoglobin 12.5 g/dl (12.0-16.0); Imm Gran Abs Auto 0.15 X10*3/uL (0.00-0.03); Lymphocytes Absolute Auto 2.1 X10*3/uL (1.2-4.9); Lymphocytes Percent Auto 41.4 % (20-40); Mean Corpuscular HGB Conc 31.4 g/dl (31.0-35.0); Mean Corpuscular Hemoglobin 26.3 pg (27.0-33.0); Mean Corpuscular Volume 83.8 fL (80.0-98.0); Mean Platelet Volume 9.8 fL (9.4-12.3); Monocytes Absolute Auto 0.6 X10*3/uL (0.1-1.2); Monocytes Percent Auto 12.1 % (2-11); Neutrophils Absolute Auto 1.8 x10*3/uL (2.0-8.3); Neutrophils Percent Auto 35.5 % (45-73); Platelet Count 223 X10*3/uL (160-400); Red Blood Count 4.75 X10*6/uL (4.20-5.50); Red Cell Distribution Width 17.5 % (11.0-16.0)
[2023-09-09 06:53] LABS: Alanine Aminotransferase 31 U/L (0-31); Albumin Level 2.9 g/dL (3.5-5.0); Alkaline Phosphatase 119 U/L (39-117); Anion Gap 15 (12-20); Aspartate Amino Transferase 31 U/L (5-31); Bilirubin Total 0.6 mg/dL (0.0-1.0); Blood Urea Nitrogen 9 mg/dL (9-16); Calcium 8.6 mg/dL (8.4-10.2); Carbon Dioxide 25 mmol/L (22-29); Chloride 104 mmol/L (96-108); Creatinine Clr Calc Pharmacy 107.4; Estimated Glomerular Filt Rate > 60; Glucose Fasting 67 mg/dL (60-99); Potassium 4.6 mmol/L (3.3-5.1); Sodium 139 mmol/L (135-145); Total Protein 7.3 g/dL (6.5-8.0)
[2023-09-09] MEDS: oxyCODONE HCl Immed Release 5 MG TABLET PO (07:35)
[2023-09-09] MEDS: Docusate Sodium 100 MG CAPSULE PO (07:35)
[2023-09-09] MEDS: methADONE HCl 20 MG/2 ML ORAL.CONC 50 MG PO (07:36)
[2023-09-09] MEDS: 0.9 % Sodium Chloride Flush 3 ML SYRINGE IVFLUSH (07:36)
[2023-09-09 07:50] VITALS: BP 144/99; PULSE 86; RESP 16; TEMP 36.7; O2SAT 96
[2023-09-09] MEDS: vancomycin HCL 1,250 MG in 0.9 % Sodium Chloride 250 ML 166.67 MG IV (12:13)
--- NOTE | 2023-09-09 14:02 | P.DS_ITS ---
DS: Providers Provider Date of Service: 09/09/23 Date of admission: 09/04/23 11:43 Date of discharge: 09/09/23 Primary care physician: None Physician Consults: 09/04/23 11:49 Addiction Medicine Routine Consulting Provider: Addiction Maik Reason for consultation: polysubstance use disorder 09/07/23 13:18 Consult to Infectious Diseases Routine Consulting Provider: [facility] Reason for consultation: Cellulitis Has provider been notified: Yes DS: Diagnosis Discharge Diagnosis (1) Cellulitis: Status: Acute (2) IV drug user: Status: Acute DS: Summary Hospital Course Hospital Course: 33-year-old female with pertinent history of IV drug use disorder, 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 Patient states she 1st noticed redness of her right lower leg 3 days ago. It has been progressive and worse over the last 24 hours. She noticed that the right leg is swollen, warm and painful. She lost used IV heroin prior to coming to the ER. Endorses chills and nausea. No fever, chest discomfort, palpitations, shortness of breath abdominal pain, changes in urinary or bowel habits. Hospital Course Patient was admitted to general medical floor and started on vancomycin. Over the course of her hospitalization she did have some improvement in the right lower extremity however changes remain chronic in nature. She was seen in consultation by addiction Medicine however she declined immediate substance abuse rehab. She was given literature that she can follow up with. She stated she needs to go to her friend's house together her things. She will be able to follow up at the methadone clinic in the a.m. as she was previously receiving. She will be discharged on a course of oral doxycycline and is encouraged to follow up [facility] for follow-up on her valvular disorder Time Attestation Discharge Coordination Time (in mins): 35 Quality: Safe Use of Opioids Does Pt have an Active Cancer Diagnosis on the Problem List?: No Quality: Stroke Does the patient have a stroke diagnosis?: No Physical Exam 2 Vital Signs: Vital Signs: Last Vital Signs Temp 98.1 F 09/09/23 07:50 Pulse 86 09/09/23 07:50 Resp 16 09/09/23 07:50 BP 144/99 H 09/09/23 07:50 Pulse Ox 96 09/09/23 07:50 O2 Del Method Room Air 09/09/23 07:50 O2 Flow Rate 2 09/05/23 05:37 BMI result Body Mass Index 27.5 Const: Other: Awake alert no acute distress Resp: Other: Clear to auscultation bilaterally no rales rhonchi or wheezes Cardio: Other: No S4; positive S1-S2; no S3 2/6 systolic murmur best heard at apex GI: Other: Soft nontender nondistended normoactive bowel sounds Skin: Other: DS: Data Data Completed and Pending Completed studies during hospitalization [Text1]: Procedures Drainage of Buttock Skin, External Approach (11/04/22) Labs on day of discharge: Laboratory Results - last 24 hr 09/08/23 09/09/23 19:14 05:38 WBC 5.0 RBC 4.75 Hgb 12.5 Hct 39.8 MCV 83.8 MCH 26.3 L MCHC 31.4 RDW 17.5 H Plt Count 223 MPV 9.8 Immature Gran % (Auto) 3.0 H Neut % (Auto) 35.5 L Lymph % (Auto) 41.4 H [place] % (Auto) 12.1 H Eos % (Auto) 6.4 H Baso % (Auto) 1.6 Lymph # (Auto) 2.1 [place] # (Auto) 0.6 Eos # (Auto) 0.3 Baso # (Auto) 0.1 Abs Immat Gran (auto) 0.15 H Absolute Neuts (auto) 1.8 L Absolute Nucleated RBC 0.000 Nucleated RBC % (auto) 0.0 Sodium 139 Potassium 4.6 Chloride 104 Carbon Dioxide 25 Anion Gap 15 BUN 9 Creatinine 0.61 Estim Creat Clear Calc 107.4 Estimated GFR > 60 Fasting Glucose 67 Calcium 8.6 D Total Bilirubin 0.6 AST 31 ALT 31 Alkaline Phosphatase 119 H Total Protein 7.3 Albumin 2.9 L Random Vancomycin 19.5 Discharge Plan Discharge Anticipated Discharge Date/Time: 09/09/23 13:55 Patient Disposition: Home, Self-Care Discharge Diagnosis: Right lower extremity cellulitis Referrals: Physician,None [Primary Care Provider] - 1 Week Discharge Medications: New oxycodone 5 mg Tablet 5 mg PO Q4H PRN (Reason: Pain, Moderate(Pain Scale 4-6)) Qty: 20 0RF Rx Instructions: Partial Fill upon patient request. linezolid 600 mg tablet 600 mg PO BID Qty: 20 0RF Discharge Orders: Discharge Order (Routine); Ordered 09/09/23 Ordered By: James Lora Diet: Advance to usual diet Activity on Discharge: As tolerated Stand Alone Forms: Patient Portal Discharge page Print Language: Korean Care Plan Goals: Complete course of antibiotics as ordered. Oxycodone as needed for pain Health Concerns: Follow-up with methadone clinic in the morning Plan of Treatment: You need to reestablish care with [facility] with regards to your valve. Is important that you do this sooner than later. You must abstain from IV drug use Assessment: See discharge summary
--- NOTE | 2023-09-09 14:34 | MHC.CM.PN ---
Patient medically cleared for dc home self care. Patient will stay w/ a friend in [place]. Declined [facility] shuttle, prefers bus. Bus pass provided. Rx sent to [facility] pharmacy. Patient does not have insurance and states she has no money. [facility] pharmacy agrees to waive the cost of the doxycycline and will deliver to patient room. Patient is aware of out of pocket cost for oxycodone (13.13) and will come back to purchase if needed. Patient and RN aware. Referral was previously sent to [facility] FS services for assistance w/ [employer]. Patient will also follow up with insurance navigators at [facility], where she hopes to become a patient.
--- NOTE | 2023-09-10 16:37 | P.CNID_ITS ---
History of Present Illness Data of Consult Service Date: 09/08/23 Requesting physician: James Lora Primary Care Provider: None Physician HPI Reason for consult: right leg cellulitis She has right leg redness and pain. She has chills and fever. She has prior tricuspid endocarditis with regurgitation. She uses IV drugs. Review of Systems 2 Review of Systems: Yes all other systems are reviewed and are negative PMFSH Past Medical History Medical History Mood disorder MRSA bacteremia Chronic hepatitis C without hepatic coma IV drug user Family History Family history: reviewed and not pertinent Social History Social History Household Members: None Housing: Homeless Do you presently have visiting nurse or other home services: No Unable to assess alcohol history related to: Refusing to respond Alcohol intake: never Patient Tobacco Use Status: Former Tobacco user Tobacco use type: Cigarette Cigarettes Per Day: 10 e-Cigarette/Vaping Use: Currently Using Second Hand Smoke Exposure: No Substance Use Type: Crack/Cocaine, Heroin, IV Drugs and Marijuana Advance Directives Date on File: 11/04/22 service: No Meds Allergies Allergy/AdvReac Type Severity Reaction Status Date / Time buprenorphine [From Suboxone] Allergy Anaphylaxis Verified 09/04/23 02:49 naloxone [From Suboxone] Allergy Anaphylaxis Verified 09/04/23 02:49 Physical Exam 2 Vital Signs: Vital Signs: Last Vital Signs Temp 98.1 F 09/09/23 07:50 Pulse 86 09/09/23 07:50 Resp 16 09/09/23 07:50 BP 144/99 H 09/09/23 07:50 Pulse Ox 96 09/09/23 07:50 O2 Del Method Room Air 09/09/23 07:50 O2 Flow Rate 2 09/05/23 05:37 BMI result Body Mass Index 27.5 Const: General: cooperative HEENT: Head: Yes normal to inspection Face and sinus: Yes normal facial exam Mouth: Normal oral and palatal mucosa present Teeth and gingiva: d entition normal Eyes: General: appearance normal, both eyes and all related structures P upils: Equal, round and reactive pupils present Resp: Effort & Inspection: normal respiratory effort Cardio: Rate: regular rate Rhythm: regular rhythm Heart sounds: Murmur heart sound present (2/6 magali) GI: Palpation (GI): Soft to palpation and nontender : General: Yes no CVA tenderness Back/Spine/Pelvis: Back: no CVA tenderness Skin: Other: hot reddened right leg Neuro: General: moves all extremities Cranial nerves: Yes Equal, round and reactive pupils present Extrem: General: Yes normal to inspection Psych: Appearance: grossly normal Results Labs 09/09/23 05:38 09/09/23 05:38 Microbiology Microbiology Results: Microbiology 09/04/23 08:29 Blood - Venous Blood Culture - Final No growth after 5 days. 09/04/23 08:29 Blood - Venous Blood Culture - Final No growth after 5 days. 09/04/23 Unknown Urine clean catch - Clean Catch Midstream Urine Culture - Final Assessment and Plan (1) MRSA bacteremia: Status: Acute She has likely endocarditis She has murmur and tricuspid regurgitation valve Plan Vancomycin 4 weeks Recheck HIV test
== END 2023-09-09 14:54 | disposition home or self-care (01) | DRG 603 ==
LOC: HO.ED 11:08 → HO.EDOVER 11:50 → HO.S3 09-05 06:14
PROVIDERS: Admitting Provider Student in an Organized Health Care Education/Training Program; Emergency Provider Emergency Medicine; Visit Provider Hospitalist
DX: L03.115 Cellulitis of right lower limb (principal); F19.90 Other psychoactive substance use, unspecified, uncomplicated; I07.1 Rheumatic tricuspid insufficiency; R74.01 Elevation of levels of liver transaminase levels; R01.1 Cardiac murmur, unspecified; Z87.891 Personal history of nicotine dependence; Z86.14 Personal history of Methicillin resistant Staphylococcus aureus infection; Z86.19 Personal history of other infectious and parasitic diseases
CPT/HCPCS: 36415; 73701; 80048; 80053; 80076; 80202; 80307; 81001; 81025; 82550; 82565; 83605; 84702; 85025; 87040; 87086; 93306; 99285; J0692; J1170; J2405; J3370; J3371; Q9967

== ENCOUNTER 2023-09-04 11:43 | Outpatient (BNV) | payer SELFPAY | END 2023-09-08 07:00 | PROVIDERS: Admitting Provider Student in an Organized Health Care Education/Training Program; Emergency Provider Emergency Medicine; Visit Provider Internal Medicine Cardiovascular Disease | DX: I36.1 Nonrheumatic tricuspid (valve) insufficiency (principal); I51.7 Cardiomegaly | CPT/HCPCS: 93306 ==

== ENCOUNTER → 2023-09-04 11:43 | Outpatient (BNV) | payer SELFPAY | PROVIDERS: Admitting Provider Student in an Organized Health Care Education/Training Program; Emergency Provider Emergency Medicine; Visit Provider Internal Medicine | DX: R78.81 Bacteremia (principal); B95.62 Methicillin resistant Staphylococcus aureus infection as the cause of diseases classified elsewhere | CPT/HCPCS: 99222 ==

== ENCOUNTER → 2023-09-04 11:43 | Outpatient (BNV) | payer SELFPAY | PROVIDERS: Admitting Provider Student in an Organized Health Care Education/Training Program; Emergency Provider Emergency Medicine; Visit Provider Student in an Organized Health Care Education/Training Program | DX: L03.115 Cellulitis of right lower limb (principal) | CPT/HCPCS: 99222; 99232; 99239 ==

== ENCOUNTER 2023-10-13 02:42 | Emergency (ER) | payer OTHER, SELFPAY ==
[2023-10-13] VITALS (9 sets, daily range): BP systolic 117–166; BP diastolic 74–114; PULSE 72–102; RESP 12–22; TEMP 36.2–37.2; O2SAT 92–99; BMI 29.3
--- NOTE | 2023-10-13 02:51 | ED.OVERDOSE ---
HPI - Overdose General Chief Complaint: Overdose Stated Complaint: OD Time Seen by Provider: 10/13/23 02:50 Source: patient Mode of arrival: ambulatory Limitations: no limitations History of Present Illness ED Provider: christiana GRANT Narrative: Patient's history of IV drug use use heroin earlier was found semi-responsive was given 8 mg Narcan by PD on arrival patient's nauseated vomiting having diarrhea in the ER Related Data Previous Rx's ?Medication ?Instructions ?Recorded doxycycline hyclate 100 mg tablet 100 mg PO BID #20 tabs 09/09/23 oxycodone 5 mg tablet 5 mg PO Q6H PRN pain (scale score 09/09/23 4-6) #20 tabs Allergies Allergy/AdvReac Type Severity Reaction Status Date / Time buprenorphine [From Suboxone] Allergy Anaphylaxis Verified 10/13/23 03:12 naloxone [From Suboxone] Allergy Anaphylaxis Verified 10/13/23 03:12 Review of Systems Review of Systems: Yes all other systems are reviewed and are negative PMFSH Past Medical History Medical History Cellulitis Tricuspid regurgitation Opioid use disorder Mood disorder MRSA bacteremia Chronic hepatitis C without hepatic coma IV drug user Social History Social History Household Members: None Housing: Homeless Do you presently have visiting nurse or other home services: No Unable to assess alcohol history related to: Refusing to respond Alcohol intake: never Patient Tobacco Use Status: Former Tobacco user Tobacco use type: Cigarette Cigarettes Per Day: 10 Smoked in Last 30 Days: No e-Cigarette/Vaping Use: Currently Using Second Hand Smoke Exposure: No Use of substances other than those prescribed or required for medical reasons: Yes Substance Use Type: Heroin Advance Directives: No Advance Directives Information Provided: No Advance Directives Date on File: 11/04/22 Do you have a plan to hurt others: No Plan service: No Physical Exam Vital Signs: Vital Signs: Last Vital Signs Temp 98.9 F 10/13/23 02:46 Pulse 101 H 10/13/23 04:49 Resp 20 10/13/23 04:49 BP 166/114 H 10/13/23 02:46 Pulse Ox 93 10/13/23 04:49 O2 Del Method Room Air 10/13/23 04:49 BMI result Body Mass Index 29.3 Appearance: Alert. Oriented X3. No acute distress. Eyes: PERRLA, No Nystagmus ENT: Pharynx normal. Oral Mucosa moist Neck: Normal inspection. Neck supple. CVS: Normal heart rate and rhythm. Pulses normal. Respiratory: No respiratory distress. Equal air entry bilateral, no wheezing/rales/rhonchi Abdomen: Soft and nontender. Bowel sounds are present, no mass palpable, no CVA tenderness Skin: Skin warm and dry. Normal skin color. Normal skin turgor. IVDA track barrett++ Extremities: No lower extremity edema. No calf tenderness Neuro: Oriented X 3. No motor deficit. No sensory deficit.No cerebellar signs , cranial nerves II-XII intact Medications Administered Discontinued Medications Generic Name Dose Route Start Last Admin Trade Name Freq PRN Reason Stop Dose Admin Lorazepam 2 mg 10/13/23 02:50 10/13/23 02:59 Lorazepam 2 Mg/Ml Vial IM 10/13/23 02:51 2 mg ONCE ONE Administration Ondansetron HCl 4 mg 10/13/23 02:50 10/13/23 03:19 Ondansetron Odt 4 Mg Tab.Rapdis TRANSLINGU 10/13/23 02:51 4 mg ONCE ONE Administration Medical Decision Making Medical Decision Making [facility] Narrative: Patient with opiate abuse status post Narcan reversal was agitated was given lorazepam will re-evaluate after been sober plan to discharge home/detox Discharge Plan Discharge Clinical Impression: Polysubstance abuse Patient Disposition: Still a Patient Instructions: Polysubstance Abuse (ED) Additional Instructions: Follow with detox Prescriptions: No Action doxycycline hyclate 100 mg tablet 100 mg PO BID Qty: 20 0RF oxycodone 5 mg tablet 5 mg PO Q6H MDD 15 PRN (Reason: pain (scale score 4-6)) Qty: 20 0RF Rx Instructions: Partial Fill upon patient request. Print Language: Malay
[2023-10-13] MEDS: LORazepam 2 MG/ML VIAL IM (02:59)
--- NOTE | 2023-10-13 03:12 | PC.NURSE ---
pt jyoti from the street, bystanders saw pt unresponsive and gave pt 4mg narcan, on PD arrival, pt given 4mg narcan. in ambulance pt refused vitals. on arrival pt ran to bathroom, pt noted to be having diarrhea with dry heaves. security at bedside, pt assisted with manager change, belongings placed in decon. pty medicated with IM ativan, pt gave verbal okay to get ativan to relax. pt assisted into stretcher, bedside commode placed.
--- NOTE | 2023-10-13 03:15 | PC.NURSE ---
pt reports taking heroin for fun without thoughts of si/hi.
[2023-10-13] MEDS: Ondansetron ODT 4 MG TAB.RAPDIS TRANSLINGU (03:19)
--- NOTE | 2023-10-13 04:07 | PC.NURSE ---
pt noted to be thrashing arms and legs around bed and is visibly uncomfortable. seizure pads placed on bed rails for comfort.
--- NOTE | 2023-10-13 06:36 | PC.NURSE ---
pt allowed to sleep, respirations even and unlabored.
--- NOTE | 2023-10-13 07:15 | PC.NURSE ---
Resumed care of pt at 0700. Pt resting in bed quietly, respirations even and unlabored, no increased WOB/SOB. Pt on classroom monitor for safety, call hinds within reach, plan for d/c when pt is awake.
--- NOTE | 2023-10-13 11:24 | MHC.RECOVRN ---
Attempted to meet with pt to complete SUDE, pt awakes briefly to voice and quickly falls back to sleep. Unable to engage in conversation.
--- NOTE | 2023-10-13 11:29 | MHC.EDTECH ---
This tech went to introduce herself, pt sleeping, asking for food, pt aware we need urine sample.
--- NOTE | 2023-10-13 11:30 | PC.NURSE ---
Assumed care of this patient at 1100, patient intermittently sleeping, detox RN unable to complete assessment d/t somnolence, patient moved to hallway bed by transmitter engineer in charge for dept needs.
--- NOTE | 2023-10-13 14:33 | HO.SUDE ---
Met with pt in [facility] after pt presented after accidental opioid overdose. Pt received 8 mg Narcan prior to arrival. Pt sitting in bed, asleep, wakes to voice, difficult to engage in conversation. Pt reports using heroin/fentanyl, 1/2 bag, IV, which resulted in overdose. Pt reports this is the 2nd time she has used since being released from [facility] on 10/05. Pt reports while she was in [facility] she received methadone, 35 mg daily. Pt reports she did not follow up with the [facility] upon release. Pt is interested in restarting methadone, however, is not appropriate at this time due to continued somnolence. Encouraged pt to present to [facility]. Pt reports she has been using cocaine, $20, IV, does not answer when asked if it is daily. Denies other substances. Pt consistently does not answer questions t/w asks, simply continues to take bites of lunch. Pt reports she is interested in ATS, however, needs to go home first. Encouraged pt to present to [facility] as a walk in tomorrow morning if interested. Pt denies questions or concerns for t/w. RN aware.
--- NOTE | 2023-10-13 14:33 | PC.NURSE ---
Attempted to remove lunch tray from patient's lap as she was sleeping, patient immediately woke up and stated she was not finished eating. Also heard back from [facility] RN, [facility] is declining services at this time, okay to DC from their point of view when provider is ready. Covering provider will be made aware.
== END 2023-10-13 15:11 | disposition home or self-care (01) ==
PROVIDERS: Emergency Provider Internal Medicine
DX: F19.10 Other psychoactive substance abuse, uncomplicated (principal); R45.1 Restlessness and agitation; R11.2 Nausea with vomiting, unspecified; R19.7 Diarrhea, unspecified; F11.20 Opioid dependence, uncomplicated; B18.2 Chronic viral hepatitis C; Z87.891 Personal history of nicotine dependence
CPT/HCPCS: 96372; 99284; 99285; J2060

== ENCOUNTER 2024-11-06 14:21 | Emergency (ER) | payer MEDICAID, SELFPAY ==
--- NOTE | 2024-11-06 14:28 | ED.GENADULT ---
HPI - General Adult General Chief complaint: Overdose Stated complaint: OVERDOSE Time Seen by Provider: 11/06/24 14:28 History of Present Illness ED Provider: Mignon GRANT narrative: The patient is a 34-year-old female who was brought to the emergency room by ambulance after being found passed out, apparently as a result of using heroin. She was apparently on the grounds of a [employer] restaurant. First responders administered 3 rounds of nasal naloxone. The patient woke up and when paramedics arrived the patient was awake and vomiting and very unhappy. She agreed to come to the hospital. Here in the emergency room she says ?I do not feel very well. ? She admits to injecting herself with heroin. She denies that she was trying to harm herself in any way. She was quite groggy after the naloxone had worn off and was unable to give any more significant history. Related Data Previous Rx's ?Medication ?Instructions ?Recorded doxycycline hyclate 100 mg tablet 100 mg PO BID #20 tabs 09/09/23 oxycodone 5 mg tablet 5 mg PO Q6H PRN pain (scale score 09/09/23 4-6) #20 tabs Allergies Allergy/AdvReac Type Severity Reaction Status Date / Time buprenorphine (From Suboxone) Allergy Anaphylaxis Verified 11/07/24 01:00 naloxone (From Suboxone) Allergy Anaphylaxis Verified 11/07/24 01:00 Review of Systems Review of Systems: Yes Unobtainable due to mental status PMFSH Past Medical History Medical History Cellulitis Tricuspid regurgitation Opioid use disorder Mood disorder MRSA bacteremia Chronic hepatitis C without hepatic coma IV drug user Social History Social History Household Members: None Housing: Homeless Do you presently have visiting nurse or other home services: No Unable to assess alcohol history related to: Refusing to respond Alcohol intake: never Patient Tobacco Use Status: Former Tobacco user Tobacco use type: Cigarette Cigarettes Per Day: 10 e-Cigarette/Vaping Use: Currently Using Second Hand Smoke Exposure: No Substance Use Type: Heroin Advance Directives: Yes Advance Directives on File: Yes Advance Directives Date on File: 11/04/22 service: No Physical Exam ED Vital Signs: Vital Signs - 24 hr 11/06/24 14:58 11/06/24 18:05 11/06/24 21:57 Temperature 98 F Pulse Rate 78 87 87 Respiratory Rate 16 16 16 Blood Pressure 164/115 H 164/115 H Pulse Oximetry 98 100 100 Oxygen Delivery Method Room Air Room Air BMI result Body Mass Index 26.6 Const Other: The patient is a severely unkempt 34-year-old who was lying prone on the stretcher. She did not appear in obvious respiratory distress. She was responsive to verbal stimuli but said very little. HENMT Other: Face is symmetrical. Mucous membranes moist. Airway clear. Eyes Other: Pupils are small, round, equal, and reactive to light. Extraocular movements are intact. Conjunctivae clear. Neck Neck: Yes normal visual inspection, Yes full ROM and Yes no lymphadenopathy Resp Effort & Inspection: normal respiratory effort Auscultation: clear to auscultation bilaterally Cardio Other: a subtle murmur may be present Rate: regular rate Rhythm: regular rhythm Heart sounds: S1 normal heart sound present and S2 normal heart sound present GI Other: The abdomen is soft and seems nontender. Skin Other: The skin was pale and dry. She has significant surgical scars to the left upper arm where she says she has had a pseudoaneurysm repair in the past. She has chronic venous stasis changes to both lower legs. No significant edema. Neuro Other: The patient was lying on the stretcher prone with her eyes closed. She responded to verbal stimuli and would answer simple questions. She looked somewhat restless. Face was symmetrical. Eye movements were normal. Speech was clear. She moves her extremities with symmetrical tone. No lateralizing findings. Extrem Other: The patient has chronic skin changes to the skin of both lower legs but quit without edema. No asymmetry. She has old surgical scars to the left upper arm. Medications Administered Discontinued Medications Generic Name Dose Route Start Last Admin Trade Name Freq PRN Reason Stop Dose Admin Diazepam 10 mg 11/06/24 16:13 11/06/24 16:31 Diazepam 10 Mg/2 Ml Cartridge IVPUSH 11/06/24 16:14 10 mg STAT STA Administration Sodium Chloride 1,000 mls @ 999 mls/hr 11/06/24 16:00 11/06/24 20:38 Ns IV 11/06/24 17:00 Infused .Q1H1M DONALD Infusion Naloxone HCl 8 mg 11/06/24 21:55 11/06/24 21:57 Naloxone Hcl Nasal Take Home 4 Mg [place] NOSTRILALT 11/06/24 21:56 8 mg ONCE ONE Administration Medical Decision Making Medical Decision Making [facility] Narrative: The patient is a 34-year-old male with a history of IV drug abuse who has had multiple medical complications secondary to IV drug use. She has a history of chronic hepatitis-C. She has a history of an epidural abscess. She has had tenosynovitis of the left hand and she has had a pseudoaneurysm with surgery in the left upper arm. 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 She has also had diskitis and myositis. She has had septic arthritis. Additionally the patient admits to a history of hypertension. She continues to use IV drugs. She came to the emergency room by ambulance after receiving nasal naloxone after being found passed out near a [employer]. Arrival here the patient was behaving in a manner consistent with someone on heroin receiving naloxone. She was restless but not combative. The patient was given an IV and was given IV diazepam on account of her restlessness. Her blood pressure was high. She says that she has a history of hypertension and has been on blood pressure medications in the past but she can not tell me what she has been on. At the moment she is not febrile and she is not tachycardic. Basic labs were done. She has a white count of 5.2 with a normal differential. Her metabolic panel is normal with normal electrolytes and normal renal function. LFTs show a transaminitis with the an AST of 125 and an ALT of 128. Bilirubins normal. test is negative. The patient will be signed out to the oncoming emergency physician at change of shift for further observation. Patient monitor in the emergency department. After 5 hours patient awake alert ate a full meal. Wanted detox. We have case management evaluate patient. They were able to provide patient with additional information additional information about detox. Places to call. Patient to be discharged. Narcan given. In stable condition. Differential Diagnosis Differential Diagnoses: The differential diagnosis associated with the presentation includes Narcotic overdose Admission/Observation Consideration of admission/observation: Escalation of care including admission/observation considered Monitored in the emergency department for 5 hours Lab Data [facility] Lab Attestation statement: I reviewed the patient's lab results. 11/06/24 16:12 11/06/24 16:12 Labs: Lab Results 09/13/25 Range/Units 16:12 WBC 5.2 (4.8-10.8) X10*3/uL RBC 5.33 (4.20-5.50) X10*6/uL Hgb 15.4 D (12.0-16.0) g/dl Hct 45.2 (37.0-47.0) % MCV 84.8 (80.0-98.0) fL MCH 28.9 (27.0-33.0) pg MCHC 34.1 (31.0-35.0) g/dl RDW 14.8 (11.0-16.0) % Plt Count 198 (160-400) X10*3/uL MPV 8.3 L (9.4-12.3) fL Immature Gran % (Auto) 0.4 (0.0-0.4) % Neut % (Auto) 59.3 (45-73) % Lymph % (Auto) 26.9 (20-40) % Humphreys % (Auto) 10.7 (2-11) % Eos % (Auto) 1.7 (0-4) % Baso % (Auto) 1.0 (0-2) % Lymph # (Auto) 1.4 (1.2-4.9) X10*3/uL Humphreys # (Auto) 0.6 (0.1-1.2) X10*3/uL Eos # (Auto) 0.1 (0.0-0.4) X10*3/uL Baso # (Auto) 0.1 (0.0-0.2) X10*3/uL Abs Immat Gran (auto) 0.02 (0.00-0.03) X10*3/uL Absolute Neuts (auto) 3.1 (2.0-8.3) x10*3/uL Absolute Nucleated RBC 0.000 (0.0-0.012) X10*3/uL Nucleated RBC % (auto) 0.0 (0.0-0.2) /100WBC Sodium 143 (135-145) mmol/L Potassium 3.3 D (3.3-5.1) mmol/L Chloride 105 (96-108) mmol/L Carbon Dioxide 26 (22-29) mmol/L Anion Gap 15 (12-20) BUN 14 (9-16) mg/dL Creatinine 0.69 (0.5-1.4) mg/dL Estim Creat Clear Calc 112.5 Estimated GFR > 60 Random Glucose 105 (60-115) mg/dL Calcium 9.3 D (8.4-10.2) mg/dL Total Bilirubin 0.9 (0.0-1.0) mg/dL Direct Bilirubin 0.5 (0.0-0.5) mg/dL AST 125 H (5-31) U/L ALT 128 H (0-31) U/L Alkaline Phosphatase 114 (39-117) U/L Total Protein 8.6 H (6.5-8.0) g/dL Albumin 4.2 (3.5-5.0) g/dL Beta HCG, Quant < 2 mIU/mL Ethyl Alcohol < 10 mg/dL Social Determinants Patient?s care significantly limited by Social Determinants of Health including: Alcoholism and drug addiction in family and Problems related to primary support group Discharge Plan Discharge Clinical Impression: Substance use disorder, IV drug user Patient Disposition: Home, Self-Care Instructions: Polysubstance Use Disorder (ED) Prescriptions: No Action doxycycline hyclate 100 mg tablet 100 mg PO BID Qty: 20 0RF oxycodone 5 mg tablet 5 mg PO Q6H MDD 15 PRN (Reason: pain (scale score 4-6)) Qty: 20 0RF Rx Instructions: Partial Fill upon patient request. Referrals: Physician,Unknown J [Primary Care Provider, Medical] Referral Note: Please go to detox. Please stop using recreational drugs. Interventions: ED Discharge Assessment Last Done: 11/06/24 21:57 Discharge Date/Time: 11/06/24 22:01 Print Language: Nepali
[2024-11-06 14:58] VITALS: PULSE 78; RESP 16; O2SAT 98; BMI 26.6
[2024-11-06 16:15] LABS: MANUAL DIFF FLAG NO
[2024-11-06 16:16] LABS: Hematocrit 45.2 % (37.0-47.0); Hemoglobin 15.4 g/dl (12.0-16.0); Imm Gran Abs Auto 0.02 X10*3/uL (0.00-0.03); Imm Gran Pct Auto 0.4 % (0.0-0.4); Lymphocytes Absolute Auto 1.4 X10*3/uL (1.2-4.9); Mean Corpuscular HGB Conc 34.1 g/dl (31.0-35.0); Mean Corpuscular Hemoglobin 28.9 pg (27.0-33.0); Mean Corpuscular Volume 84.8 fL (80.0-98.0); NRBC Abs Auto 0.000 X10*3/uL (0.0-0.012); NRBC Pct Auto 0.0 /100WBC (0.0-0.2); Platelet Count 198 X10*3/uL (160-400); Red Blood Count 5.33 X10*6/uL (4.20-5.50); White Blood Count 5.2 X10*3/uL (4.8-10.8)
[2024-11-06] MEDS: diazePAM 10 MG/2 ML CARTRIDGE IVPUSH (16:31)
[2024-11-06 16:33] LABS: Alanine Aminotransferase 128 U/L (0-31); Albumin Level 4.2 g/dL (3.5-5.0); Alkaline Phosphatase 114 U/L (39-117); Anion Gap 15 (12-20); Aspartate Amino Transferase 125 U/L (5-31); Blood Urea Nitrogen 14 mg/dL (9-16); Calcium 9.3 mg/dL (8.4-10.2); Carbon Dioxide 26 mmol/L (22-29); Chloride 105 mmol/L (96-108); Creatinine Clr Calc Pharmacy 112.5; Estimated Glomerular Filt Rate > 60; Potassium 3.3 mmol/L (3.3-5.1); Sodium 143 mmol/L (135-145); Total Protein 8.6 g/dL (6.5-8.0)
[2024-11-06 18:05] VITALS: BP 164/115; PULSE 87; RESP 16; O2SAT 100
--- NOTE | 2024-11-06 21:26 | MHC.CARE ---
ED provider reports full recovery assessment is not needed and requests that the CARE Team check-in with Pt to discuss recovery resources and provide numbers for detox. CARE Team did call [facility] ([phone]) who report that they anticipate bed availability in the morning but are not currently accepting clients at this time. CARE Team met with Pt who is somnolent and needs to be shaken awake multiple times by T/W. She is observed clutching onto the side railing of the stretcher laying in her feces. She reports symptoms of body aches, fatigue, chills and diarrhea. She is unable to fully engage in conversation, however confirms that she would like to go to detox. T/W provides Pt information regarding [facility], detox contacts and that [facility] is expecting bed availability in the AM. Level of receptiveness to this information is questionable due to her presentation, which was also discussed with the ED provider. Pt was provided physical copies of provided information.
[2024-11-06 21:57] VITALS: BP 164/115; PULSE 87; RESP 16; TEMP 36.6; O2SAT 100
[2024-11-06] MEDS: Naloxone HCl Nasal TAKE HOME 4 MG SPRAY 8 MG NOSTRILALT (21:57)
== END 2024-11-06 22:01 | disposition home or self-care (01) ==
PROVIDERS: Emergency Medicine; Emergency Provider Emergency Medicine Emergency Medical Services
DX: F19.90 Other psychoactive substance use, unspecified, uncomplicated (principal); R55 Syncope and collapse; Z63.8 Other specified problems related to primary support group
CPT/HCPCS: 36415; 80048; 80076; 80307; 84702; 85025; 96361; 96374; 99284; 99285; J3360

== ENCOUNTER 2024-11-07 00:51 | Emergency (ER) | payer MEDICAID, SELFPAY ==
[2024-11-07 00:56] VITALS: BP 173/118; PULSE 80; RESP 20; TEMP 36.7; O2SAT 98; BMI 31.2
--- NOTE | 2024-11-07 01:25 | ED.GENADULT ---
HPI - General Adult General Chief complaint: General Medical Stated complaint: detox Time Seen by Provider: 11/07/24 01:05 History of Present Illness HPI narrative: Patient is homeless. Was here earlier for a narcotic overdose. Supposed to call [facility] in the morning for detox. Phone number was given to patient. Patient claims she is homeless. Patient was staying in the waiting room overnight. When approached by security patient has just signed back in. Patient is not suicidal not homicidal. Has a history of heroin abuse. Has no specific complaints. Does have diarrhea that is been ongoing. Related Data Previous Rx's ?Medication ?Instructions ?Recorded doxycycline hyclate 100 mg tablet 100 mg PO BID #20 tabs 09/09/23 oxycodone 5 mg tablet 5 mg PO Q6H PRN pain (scale score 09/09/23 4-6) #20 tabs Allergies Allergy/AdvReac Type Severity Reaction Status Date / Time buprenorphine (From Suboxone) Allergy Anaphylaxis Verified 11/07/24 01:00 naloxone (From Suboxone) Allergy Anaphylaxis Verified 11/07/24 01:00 Review of Systems Review of Systems: History of hypertension history of polysubstance abuse Yes all other systems are reviewed and are negative [facility] Past Medical History Attestation statement: The following information was validated with the patient. Medical History Cellulitis Tricuspid regurgitation Opioid use disorder Mood disorder MRSA bacteremia Chronic hepatitis C without hepatic coma IV drug user Social History Social History Household Members: None Housing: Homeless Do you presently have visiting nurse or other home services: No Unable to assess alcohol history related to: Refusing to respond Alcohol intake: never Patient Tobacco Use Status: Former Tobacco user Tobacco use type: Cigarette Cigarettes Per Day: 10 e-Cigarette/Vaping Use: Currently Using Second Hand Smoke Exposure: No Substance Use Type: Heroin Advance Directives Date on File: 11/04/22 service: No Physical Exam ED Exam Exam: Appearance: Alert. Oriented X3. No acute distress. Eyes: Pupils equal, round and reactive to light. ENT: Pharynx normal. Neck: Normal inspection. Neck supple. No lymph nodes noted. No crepitus CVS: Normal heart rate and rhythm. Pulses normal. Normal S1 and S2 Respiratory: No respiratory distress. Breath sounds normal. No Wheezing. No rales Abdomen: Soft and nontender. No rigidity. No distention. good BS x4 Skin: Skin warm and dry. Normal skin color. Normal skin turgor. Extremities: No lower extremity edema. Neurovascular intact to all extremities. No Lacerations. No Rash Neuro: Oriented X 3. No motor deficit. No sensory deficit. Moving all extermities. No slurred speech Vital Signs: Vital Signs - 24 hr 11/07/ 00:56 Temperature 98.1 F Pulse Rate 80 Respiratory Rate 20 Blood Pressure 173/118 H Pulse Oximetry 98 Oxygen Delivery Method Room Air BMI result Body Mass Index 31.2 Medical Decision Making Medical Decision Making MDM Narrative: Not suicidal not homicidal is very hungry wanted food. Just want to stay in the waiting room because she is homeless. I discussed with the security officers and with her. Patient agreed she can stay in the corner of the waiting room until 05:00. We offer her food sandwiches and drinks. Patient was very grateful. She will try to call call detox in the morning. Currently in stable condition. Differential Diagnosis Differential Diagnoses: The differential diagnosis associated with the presentation includes Substance abuse Admission/Observation Consideration of admission/observation: Escalation of care including admission/observation considered Social Determinants Patient?s care significantly limited by Social Determinants of Health including: Alcoholism and drug addiction in family, Problems related to primary support group and Unemployment Discharge Plan Discharge Clinical Impression: IV drug user, Hypertension Patient Disposition: Home, Self-Care Instructions: Hypertension (ED), Polysubstance Use Disorder (ED) Additional Instructions: Please follow-up closely intake your blood pressure medicine. Please go to detox Prescriptions: No Action doxycycline hyclate 100 mg tablet 100 mg PO BID Qty: 20 0RF oxycodone 5 mg tablet 5 mg PO Q6H MDD 15 PRN (Reason: pain (scale score 4-6)) Qty: 20 0RF Rx Instructions: Partial Fill upon patient request. Referrals: Physician,Unknown J [Primary Care Provider, Medical] Referral Note: Please contact [facility] [place] The phone number was given to you earlier by care team Print Language: Czech
[2024-11-07 01:34] VITALS: BP 173/118; PULSE 80; RESP 20; TEMP 36.7; O2SAT 98
== END 2024-11-07 01:40 | disposition home or self-care (01) ==
LOC: HO.ED 01:38
PROVIDERS: Emergency Provider Emergency Medicine Emergency Medical Services
DX: F11.10 Opioid abuse, uncomplicated (principal); Z59.00 Homelessness unspecified; Z87.891 Personal history of nicotine dependence
CPT/HCPCS: 99282

== ENCOUNTER 2025-02-22 09:21 | Emergency (ER) | payer MEDICAID, SELFPAY ==
[2025-02-22] VITALS (14 sets, daily range): BP systolic 152–217; BP diastolic 85–159; PULSE 87–124; RESP 16–22; TEMP 37–38; O2SAT 94–100; BMI 29.3
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
[2025-02-22 10:23] LABS: MANUAL DIFF FLAG NO
[2025-02-22 10:24] LABS: Hematocrit 44.8 % (37.0-47.0); Hemoglobin 14.9 g/dl (12.0-16.0); Imm Gran Abs Auto 0.01 X10*3/uL (0.00-0.03); Imm Gran Pct Auto 0.2 % (0.0-0.4); Lymphocytes Absolute Auto 1.4 X10*3/uL (1.2-4.9); Mean Corpuscular HGB Conc 33.3 g/dl (31.0-35.0); Mean Corpuscular Hemoglobin 28.3 pg (27.0-33.0); Mean Corpuscular Volume 85.0 fL (80.0-98.0); NRBC Abs Auto 0.000 X10*3/uL (0.0-0.012); NRBC Pct Auto 0.0 /100WBC (0.0-0.2); Platelet Count 168 X10*3/uL (160-400); Red Blood Count 5.27 X10*6/uL (4.20-5.50); White Blood Count 5.4 X10*3/uL (4.8-10.8)
[2025-02-22 10:43] LABS: Alanine Aminotransferase 101 U/L (0-31); Albumin Level 3.5 g/dL (3.5-5.0); Alkaline Phosphatase 75 U/L (39-117); Anion Gap 11 (12-20); Aspartate Amino Transferase 103 U/L (5-31); Blood Urea Nitrogen 13 mg/dL (9-16); Calcium 8.7 mg/dL (8.4-10.2); Carbon Dioxide 29 mmol/L (22-29); Chloride 103 mmol/L (96-108); Creatinine Clr Calc Pharmacy 94.3; Estimated Glomerular Filt Rate > 60; Magnesium 2.1 mg/dL (1.6-2.6); Potassium 3.8 mmol/L (3.3-5.1); Sodium 139 mmol/L (135-145); Total Protein 7.5 g/dL (6.5-8.0)
--- NOTE | 2025-02-22 11:00 | ECG_ITS ---
Test Reason : intoxicated Blood Pressure : */* mmHG Vent. Rate : 86 BPM Atrial Rate : 86 BPM P-R Int : 150 ms QRS Dur : 112 ms QT Int : 386 ms P-R-T Axes : 29 -12 37 degrees QTcB Int : 461 ms Normal sinus rhythm Moderate voltage criteria for LVH, may be normal variant ( R in aVL , Emil product ) Borderline ECG No previous ECGs available Referred By: Vivi Crabtree Electronically Signed By: DARIELA PERRY
[2025-02-22 12:01] LABS: Appearance Urine Cloudy; Glucose Urine UA Negative (Negative); PH 6.0 (5.0-9.0); Specific Gravity - Urine 1.025 (1.005-1.025); UMIC TRIGGER UACC YES
[2025-02-22 12:11] LABS: UACC Culture Trigger YES
[2025-02-22 12:17] LABS: Cannabinoid Screen Urine Not Detected (Not Detect)
[2025-02-22] MEDS: iohexoL 350 MG/ML 100 ML INFUS..BTL IV (12:51)
--- NOTE | 2025-02-22 15:19 | PC.NURSE ---
Provider aware of eleevated BP
[2025-02-22] MEDS: vancomycin HCL 1,000 MG, vancomycin HCL 750 MG in 0.9 % Sodium Chloride 500 ML 267.5 MG IV (15:30)
[2025-02-22 15:46] LABS: Resp Syncy Virus RNA Qual PCR NEGATIVE (Negative); SARS COV2 PCR INHOUSE NEGATIVE (Negative)
--- NOTE | 2025-02-22 17:21 | PC.NURSE ---
Patient remains tachycardic and hypertensive, provider aware
--- NOTE | 2025-02-22 19:11 | PC.NURSE ---
report given to [facility] , attempted to call report to [facility] no answer at this time
--- NOTE | 2025-02-22 19:21 | PC.NURSE ---
report given to [facility] ED triage nurse
== END 2025-02-22 19:40 | disposition short-term general hospital (02) ==
PROVIDERS: Physician Assistant Medical; Emergency Provider Emergency Medicine
DX: F19.90 Other psychoactive substance use, unspecified, uncomplicated (principal); S81.802A Unspecified open wound, left lower leg, initial encounter; V48.4XXA Person boarding or alighting a car injured in noncollision transport accident, initial encounter; J18.9 Pneumonia, unspecified organism; R00.0 Tachycardia, unspecified; R50.9 Fever, unspecified; I10 Essential (primary) hypertension; Y93.89 Activity, other specified; Y92.414 Local residential or business street as the place of occurrence of the external cause; Y99.9 Unspecified external cause status; M25.562 Pain in left knee; F39 Unspecified mood [affective] disorder; B18.2 Chronic viral hepatitis C; Z87.891 Personal history of nicotine dependence; Z03.818 Encounter for observation for suspected exposure to other biological agents ruled out
CPT/HCPCS: 36415; 70450; 71270; 73564; 74177; 80053; 80307; 81001; 81003; 82550; 83605; 83735; 84702; 85025; 87040; 87086; 87088; 87186; 87637; 93005; 96365; 96366; 96367; 96368; 96372; 96375; 96376; 99285; J0131; J0360; J0696; J0736; J1171; J3374; Q9967

== ENCOUNTER → 2025-02-22 11:00 | Outpatient (BNV) | payer MEDICAID, SELFPAY | PROVIDERS: Emergency Provider Emergency Medicine; Visit Provider Radiology Diagnostic Radiology | DX: R16.1 Splenomegaly, not elsewhere classified (principal); D25.9 Leiomyoma of uterus, unspecified; R91.8 Other nonspecific abnormal finding of lung field; S09.90XA Unspecified injury of head, initial encounter; J32.0 Chronic maxillary sinusitis; J32.3 Chronic sphenoidal sinusitis; M79.89 Other specified soft tissue disorders; V89.2XXA Person injured in unspecified motor-vehicle accident, traffic, initial encounter | CPT/HCPCS: 70450; 71270; 73564; 74177 ==

== ENCOUNTER → 2025-02-22 11:00 | Outpatient (BNV) | payer MEDICAID, SELFPAY | PROVIDERS: Emergency Provider Emergency Medicine; Visit Provider Internal Medicine | DX: F10.90 Alcohol use, unspecified, uncomplicated (principal) | CPT/HCPCS: 93010 ==